=== PATIENT | female | born 1935 | race Caucasian/White ===

== ENCOUNTER 2020-03-26 10:51 | Outpatient (REF) | payer MEDICARE, SELFPAY ==
--- NOTE | 2020-03-26 | MM_ITS ---
EXAMINATION: MM SCREENING DIGITAL MAMMOGRAPHY, BILATERAL CLINICAL INFORMATION: Screening. Asymptomatic. Age 84. Family history breast cancer in sister. Due for yearly. The lifetime risk of breast cancer based on the Tyrer-Cuzick Model is under 1%. COMPARISON: Mammography: 03/21/2019, 03/19/2018, 03/16/2017, 03/13/2016 TECHNIQUE: Digital mammography is performed in craniocaudal and mediolateral oblique views along with computer-aided detection (CAD). FINDINGS: The breasts are heterogeneously dense, which may obscure small masses (ACR BI-RADS breast composition Category c). There is inhomogeneous parenchymal pattern similar to prior studies. There is no significant mass or architectural abnormality. Scattered bilateral round and vascular calcifications are again seen. There are no significant changes. IMPRESSION: No significant changes from prior studies. ASSESSMENT: BI-RADS 2: Benign RECOMMENDATION: Routine annual mammography screening. This patient's information was entered into a reminder system with a target due date for their next mammogram.
== END 2020-03-26 10:52 | disposition home or self-care (01) ==
LOC: HO.MAMMO 10:51
PROVIDERS: PCP Internal Medicine; Visit Provider Internal Medicine
DX: Z12.31 Encounter for screening mammogram for malignant neoplasm of breast (principal)
CPT/HCPCS: 77067

== ENCOUNTER 2021-04-09 09:38 | Outpatient (REF) | payer MEDICARE, SELFPAY ==
--- NOTE | ~2021-04-09 | MM_ITS ---
EXAMINATION: BONE DENSITOMETRY CLINICAL INDICATION: Postmenopausal. COMPARISON: Previous BD dated 03/13/2016 and baseline BD dated 07/07/2005. TECHNIQUE: Using a [employer] DXA System (software version: 13.1) manufactured by [employer], dual-energy x-ray absorptiometry was performed of the lumbar spine and left hip. The images are of good technical quality. Summary results are attached. FINDINGS: AP SPINE L1-L2 (excluding L3 and L4): The data of L1-L4 has been changed to exclude the L3 and L4 vertebral bodies, because generative changes at these levels may cause overestimation of lumbar spine density. Current: BMD 1.066 g/cm2, Z-score 1.3, T-score -0.8, normal, 4.0% increase from previous, 1.0% decrease from baseline (<5% change is not significant). Prior: BMD 1.025 g/cm2. Baseline: BMD 1.077 g/cm2. LEFT FEMUR, NECK: Current: BMD 0.693 g/cm2, Z-score 0.1, T-score -2.5, osteoporosis. Prior: BMD 0.737 g/cm2. Baseline: BMD 0.830 g/cm2. LEFT FEMUR, TOTAL: Current: BMD 0.803 g/cm2, Z-score 0.9, T-score -1.6, osteopenia, 2.3% decrease from previous, 13.5% decrease from baseline (<5% change is not significant). Prior: BMD 0.822 g/cm2. Baseline: BMD 0.928 g/cm2. IDENTIFIED RISK FACTORS: Height loss, menopause. HISTORY OF FRACTURE: None listed. MEDICATIONS: Vitamin D. MM/XR DEXA axial skeleton IMPRESSION: 1. DIAGNOSIS: Osteoporosis based on the lowest T-score value of -2.5 in the femoral neck applying World Health Organization criteria. 2. 10-YEAR FRACTURE RISK PREDICTION, FRAX: Major osteoporotic fracture (clinical spine, forearm, hip or shoulder) 16.8%. Hip fracture 6.3%. 3. Treatment Recommendations: NOF guidelines recommend consideration for treatment in postmenopausal women and men age 50 and older presenting with the following: -A hip or vertebral (clinical or morphometric) fracture. -T-score less than or equal to -2.5 at the femoral neck or spine after appropriate evaluation to exclude secondary causes. -Low bone mass at the hip or spine and a 10-year fracture probability by FRAX of greater than or equal to 3% for hip fracture or greater than or equal to 20% for major osteoporotic fracture based on the [place] adapted WHO algorithm. 4. Other Recommendations: All treatment decisions require clinical judgment and consideration of individual patient factors, including patient preferences, comorbidities, previous drug use, risk factors not captured in the FRAX model (e.g. frailty, falls, vitamin D deficiency, increased bone turnover, interval significant decline in bone density) and possible under or overestimation of fracture risk by FRAX. Additional medical evaluation for secondary cause of low bone mineral density may be appropriate. FUTURE SCAN RECOMMENDATION: People with diagnosed cases of osteoporosis or at high risk for fracture should have regular bone mineral density tests. For patients eligible for Medicare, routine testing is allowed once every 2 years. The testing frequency can be increased to one year for patients who have rapidly progressing disease, those who are receiving or discontinuing medical therapy to restore bone mass, or have additional risk factors.
--- NOTE | ~2021-04-09 | MM_ITS ---
EXAMINATION: MM SCREENING DIGITAL BREAST TOMOSYNTHESIS, BILATERAL CLINICAL INFORMATION: Screening. Asymptomatic. COMPARISON: Mammography: 03/26/2020, 03/21/2019, 03/19/2018 TECHNIQUE: Digital breast tomosynthesis is performed in both the craniocaudal and mediolateral oblique views along with computer-aided detection (CAD). Synthesized 2D images are generated from the tomosynthesis. FINDINGS: The breasts are heterogeneously dense, which may obscure small masses (ACR BI-RADS breast composition Category c). There are no significant masses, abnormal calcifications, or other abnormalities. Parenchymal pattern is similar to prior exams. There are scattered bilateral benign round and vascular calcifications. The axilla and skin contours are unremarkable. MM/MM tomosynthesis screening BI IMPRESSION: No mammographic evidence of malignancy. ASSESSMENT: BI-RADS 1: Negative RECOMMENDATION: Routine annual mammography screening. This patient's information was entered into a reminder system with a target due date for their next mammogram.
== END 2021-04-09 09:39 | disposition home or self-care (01) ==
LOC: HO.MAMMO 09:38
PROVIDERS: PCP Internal Medicine; Visit Provider Internal Medicine
DX: Z12.31 Encounter for screening mammogram for malignant neoplasm of breast (principal); Z13.820 Encounter for screening for osteoporosis; M81.0 Age-related osteoporosis without current pathological fracture; Z78.0 Asymptomatic menopausal state
CPT/HCPCS: 77063; 77067; 77080

== ENCOUNTER 2021-10-20 18:16 | Emergency (ER) | payer MEDICARE, SELFPAY ==
--- NOTE | ~2021-10-20 | CT_ITS ---
EXAMINATION: CT ABDOMEN AND PELVIS WITH CONTRAST CLINICAL INFORMATION: abd pain hyperactive bowel sounds eval partial SBO COMPARISON: 01/31/2020 TECHNIQUE: Multidetector volumetric imaging was performed from the superior aspect of the liver through the pubic symphysis following administration of 85 mL Omnipaque 300 intravenous contrast. Sagittal and coronal reformatted images were obtained on the technologist workstation.. This CT examination was performed using dose optimization techniques as appropriate, variously including the following: *Automated exposure control *Adjustment of mA and/or kV according to patient size (this includes techniques or standardized protocols for targeted exams where dose is matched to indication/reason for exam; i.e. extremities or head) *Use of iterative reconstruction technique DLP: 406 mGy-cm FINDINGS: LUNG BASES: Linear scarring or atelectasis. Small hiatal hernia. LIVER, GALLBLADDER, AND BILIARY TREE: The liver is normal in size, shape, and attenuation. No focal hepatic lesion or biliary ductal dilatation is present. The gallbladder is unremarkable with no evidence of radiopaque gallstones, gallbladder wall thickening, or obvious pericholecystic inflammatory changes. PANCREAS: Unremarkable. SPLEEN: Unremarkable. ADRENAL GLANDS: Unremarkable. KIDNEYS AND URETERS: The kidneys are normal in size, shape, and attenuation. No hydronephrosis, hydroureter, or calculi seen. No perinephric stranding. BLADDER: Unremarkable. GASTROINTESTINAL TRACT: Few scattered colonic diverticula are seen but no colonic wall thickening or pericolonic inflammatory change to suggest diverticulitis. Visualized small bowel unremarkable. Small hiatal hernia. ABDOMINAL WALL: No significant hernia is appreciated. LYMPHOVASCULAR STRUCTURES: Vascular calcification within the aorta iliac system PELVIC VISCERA: 3.1 cm right adnexal cyst again seen only a few millimeters more prominent compared to similar orientation to the 01/31/2020 study OSSEOUS STRUCTURES: Multilevel degenerative changes in the spine again seen similar to the prior exam CT/CT abdomen pelvis w con IMPRESSION: Chronic appearing intra-abdominal findings relatively similar to the 01/31/2020 study without acute process process
[2021-10-20 18:36] VITALS: BP 142/70; PULSE 86; RESP 18; TEMP 36.6; O2SAT 96; BMI 22.6
--- NOTE | 2021-10-20 20:16 | ED_ITS ---
HPI - General Adult General Chief complaint: General Medical Stated complaint: abdominal pain Time Seen by Provider: 10/20/21 19:57 Source: patient Limitations: no limitations History of Present Illness HPI narrative: This is an 86-year-old female who the night before last had eaten some cake and then developed diarrhea all night long. The patient notes that she does have a gluten intolerance. The next day she felt somewhat better but this morning she ate breakfast and then felt worse, with some nausea, 1 episode of diarrhea, and open abdomen with crampy pain, making a lot of noise. Patient denies any fever or chills. She denies any chest pain, cough, shortness of breath. She denies any urinary symptoms. She denies any prior abdominal surgery Related Data Previous Rx's Medication Instructions Recorded cefdinir 300 mg capsule 300 mg PO BID #12 cap 10/21/21 ondansetron 4 mg disintegrating 4 mg PO Q6H PRN #7 tab 10/21/21 tablet Allergies Allergy/AdvReac Type Severity Reaction Status Date / Time buspirone [BUSPIRONE] Allergy Intermediate STOMACH Unverified 03/08/20 15:36 UPSET citalopram [CITALOPRAM] Allergy Intermediate STOMACH Unverified 03/08/20 15:36 UPSET paroxetine [PAROXETINE] Allergy Intermediate STOMACH Unverified 03/08/20 15:36 UPSET trazodone [TRAZODONE] Allergy Intermediate STOMACH Unverified 03/08/20 15:36 UPSET levofloxacin [From [facility]EVAQU[facility]] Allergy Unknown DEPRESSION Unverified 03/08/20 15:36 Review of Systems Review of Systems: Yes all other systems are reviewed and are negative Constitutional: Constitutional: Reports as per HPI and Denies fever(s) Eyes: Eyes: Reports as per HPI and Reports no additional eye complaints ENT: Reports system reviewed and no additional complaints, except as documented, Reports as per HPI, Denies nasal congestion, Denies nasal discharge and Denies sore throat Cardiovascular: Cardiovascular: Reports as per HPI, Denies chest pain and Denies dyspnea Respiratory: Respiratory: Reports as per HPI, Denies cough and Denies dyspnea Gastrointestinal: Gastrointestinal: Reports as per HPI, Reports abdominal pain, Reports diarrhea, Reports nausea and Denies vomiting Genitourinary: Genitourinary: Reports as per HPI, Denies hematuria, Denies urinary frequency and Denies dysuria Musculoskeletal: Musculoskeletal: Reports no additional musculoskeletal complaints and Denies numbness Integumentary/Breasts: Skin/Breast: Reports as per HPI and Denies rash Neurologic: Reports as per HPI, Denies focal weakness and Denies numbness Psychiatric: Psychiatric: Reports no additional psychiatric complaints and Reports as per HPI Endocrine: Endocrine: Reports no additional endocrine complaints and Reports as per HPI Hematologic/Lymphatic: Hematologic/Lymphatic: Reports no additional hematologic/lymphatic complaints, Reports as per HPI and Reports other (No peripheral edema) [facility] Social History Social History Advance Directives: No Advance Directives Information Provided: No Advance Directives Date on File: 03/26/20 Physical Exam ED Vital Signs: Vital Signs - 24 hr 10/20/21 18:36 10/20/21 20:30 10/20/21 22:10 Temperature 97.8 F 98.8 F 98.3 F Pulse Rate 86 64 69 Respiratory Rate 18 17 17 Blood Pressure 142/70 H 150/82 H 140/66 H Pulse Oximetry 96 96 98 BMI result Body Mass Index 22.6 Const General: no acute distress Orientation/consciousness: patient oriented x3 HENMT Head: Yes normal to inspection General nose exam: Normal external nose present Mouth: moist mucous membranes Throat: Yes posterior oropharynx normal, Yes tonsils normal and Yes uvula midline Eyes Eyelids: Yes eyelids normal Conjunctivae: conjunctivae normal Pupils: Equal, round and reactive pupils present Neck Neck: Yes supple Resp Effort & Inspection: normal respiratory effort Auscultation: clear to auscultation bilaterally Cardio Rate: regular rate Rhythm: regular rhythm Heart sounds: S1 normal heart sound present, S2 normal heart sound present, no gallops, no murmurs and no rubs GI Inspection: No distended Palpation (GI): Soft to palpation and nontender Auscultation: bowels sounds not normal and abnormal bowel sounds (Very Hyperactive, not high-pitched or tinkling) Skin General skin exam: other (Warm and dry) Neuro General: patient oriented x3 and CN's II-XI intact bilaterally Cranial nerves: Yes Equal, round and reactive pupils present Extrem General: Yes no pedal edema Psych Affect: normal affect Attitude: cooperative Medical Decision Making MDM Narrative Medical decision making narrative: Patient with diarrhea the night before last, recurred this morning, with further symptoms today of abdominal cramping. No tenderness on exam the patient did have very hyperactive bowel sounds. CT scan of the abdomen did not show any concerning findings. Urinalysis did show numerous white blood cells per high- power field, the patient states that she has some condition such as lichen sclerosis which she states causes her to have abnormal urinalysis. Urine was also positive for nitrites. Patient denied dysuria but given her urinalysis, I believe it is prudent to treat with antibiotics for UTI. CBC and chemistry panel unremarkable. Patient was hydrated with normal saline, given Zofran 4 mg IV x2 doses, also Reglan 5 mg IV. Patient was also given Rocephin 1 g IV Lab Data Lab results reviewed: Yes I reviewed the patient's lab results. Result diagrams: 10/20/21 20:18 10/20/21 20:18 Labs: Lab Results 10/20/21 10/20/21 10/20/21 Range/Units 20:18 20:18 23:49 WBC 9.7 (4.8-10.8) X10*3/uL RBC 4.57 (4.20-5.50) X10*6/uL Hgb 13.9 (12.0-16.0) g/dl Hct 39.9 (37.0-47.0) % MCV 87.3 (80.0-98.0) fL MCH 30.4 (27.0-33.0) pg MCHC 34.8 (31.0-35.0) g/dl RDW 12.7 (11.0-16.0) % Plt Count 244 (160-400) X10*3/uL MPV 9.6 (9.4-12.3) fL Immature Gran % (Auto) 0.5 H (0.0-0.4) % Neut % (Auto) 82.4 H (45-73) % Lymph % (Auto) 10.7 L (20-40) % [place] % (Auto) 6.0 (2-11) % Eos % (Auto) 0.1 (0-4) % Baso % (Auto) 0.3 (0-2) % Lymph # (Auto) 1.0 L (1.2-4.9) X10*3/uL [place] # (Auto) 0.6 (0.1-1.2) X10*3/uL Eos # (Auto) 0.0 (0.0-0.4) X10*3/uL Baso # (Auto) 0.0 (0.0-0.2) X10*3/uL Abs Immat Gran (auto) 0.05 H (0.00-0.03) X10*3/uL Absolute Neuts (auto) 8.0 (2.0-8.3) x10*3/uL Absolute Nucleated RBC 0.000 (0.0-0.012) X10*3/uL Nucleated RBC % (auto) 0.0 (0.0-0.2) /100WBC Sodium 133 L (135-145) mmol/L Potassium 3.9 (3.3-5.1) mmol/L Chloride 105 (96-108) mmol/L Carbon Dioxide 17 L (22-29) mmol/L Anion Gap 15 (12-20) BUN 13 (9-16) mg/dL Creatinine 0.79 (0.5-1.4) mg/dL Estim Creat Clear Calc 46.0 Estimated GFR > 60 Random Glucose 129 H (60-115) mg/dL Calcium 9.3 (8.4-10.2) mg/dL Total Bilirubin 1.3 H (0.0-1.0) mg/dL AST 21 (5-31) U/L ALT 25 (0-31) U/L Alkaline Phosphatase 71 (39-117) U/L Total Protein 6.9 (6.5-8.0) g/dL Albumin 4.2 (3.5-5.0) g/dL Urine Color YELLOW Urine Appearance HAZY Urine pH 6.0 (5.0-8.0) Ur Specific [place] 1.015 (1.005-1.025) Urine Protein 2+ H (NEG-TRACE) MG/DL Urine Glucose (UA) >=1000 H (NEG) MG/DL Urine Ketones 40 (NEG) MG/DL Urine Blood TRACE (NEG) Urine Nitrite POS H (NEG) Ur Leukocyte Esterase NEG (NEG) Urine RBC 0 (0) /HPF Urine WBC 30-49 H (0-4) /HPF Urine WBC Clumps NOTED Ur Squamous Epith Cells 1+ /LPF Urine Bacteria 4+ /LPF Imaging Data CT abdomen and pelvis with IV contrast: Radiologist's impression: IMPRESSION: Chronic appearing intra-abdominal findings relatively similar to the 01/31/2020 study without acute process process Discharge Plan Discharge Clinical Impression: Vomiting, Diarrhea, Acute UTI Patient Disposition: Home, Self-Care Instructions: Urinary Tract Infection in Women (ED), Acute Diarrhea (ED) Additional Instructions: Use ondansetron as needed for nausea. Try to keep down clear fluids. Follow-up with primary care physician. Take the antibiotics as prescribed Prescriptions: New cefdinir 300 mg capsule 300 mg PO BID Qty: 12 0RF ondansetron 4 mg tablet,disintegrating 4 mg PO Q6H PRN (Reason: nausea and vomiting) Qty: 7 0RF
[2021-10-20] MEDS: 0.9 % Sodium Chloride 1,000 ML 999 ML IV (20:25)
[2021-10-20] MEDS: ondansetron HCL 4 MG/2 ML VIAL IVPUSH ×2 (20:28→23:09)
[2021-10-20 20:29] LABS: MANUAL DIFF FLAG NO
[2021-10-20 20:30] VITALS: BP 150/82; PULSE 64; RESP 17; TEMP 37.1; O2SAT 96
[2021-10-20 20:46] LABS: Alanine Aminotransferase 25 U/L (0-31); Albumin Level 4.2 g/dL (3.5-5.0); Alkaline Phosphatase 71 U/L (39-117); Anion Gap 15 (12-20); Aspartate Amino Transferase 21 U/L (5-31); Basophils Percent Auto 0.3 % (0-2); Bilirubin Total 1.3 mg/dL (0.0-1.0); Blood Urea Nitrogen 13 mg/dL (9-16); Calcium 9.3 mg/dL (8.4-10.2); Carbon Dioxide 17 mmol/L (22-29); Chloride 105 mmol/L (96-108); Eosinophils Percent Auto 0.1 % (0-4); Estimated Glomerular Filt Rate > 60; Glucose Random 129 mg/dL (60-115); Hematocrit 39.9 % (37.0-47.0); Hemoglobin 13.9 g/dl (12.0-16.0); Imm Gran Abs Auto 0.05 X10*3/uL (0.00-0.03); Imm Gran Pct Auto 0.5 % (0.0-0.4); Lymphocytes Percent Auto 10.7 % (20-40); Mean Corpuscular HGB Conc 34.8 g/dl (31.0-35.0); Mean Corpuscular Hemoglobin 30.4 pg (27.0-33.0); Mean Corpuscular Volume 87.3 fL (80.0-98.0); Mean Platelet Volume 9.6 fL (9.4-12.3); Monocytes Absolute Auto 0.6 X10*3/uL (0.1-1.2); Neutrophils Percent Auto 82.4 % (45-73); Platelet Count 244 X10*3/uL (160-400); Potassium 3.9 mmol/L (3.3-5.1); Red Blood Count 4.57 X10*6/uL (4.20-5.50); Red Cell Distribution Width 12.7 % (11.0-16.0); Sodium 133 mmol/L (135-145); Total Protein 6.9 g/dL (6.5-8.0); White Blood Count 9.7 X10*3/uL (4.8-10.8)
[2021-10-20 22:10] VITALS: BP 140/66; PULSE 69; RESP 17; TEMP 36.8; O2SAT 98
[2021-10-20] MEDS: iohexoL 350 MG/ML 100 ML INFUS..BTL IV (22:26)
[2021-10-20] MEDS: Metoclopramide HCl 10 MG/2 ML VIAL 5 MG IVPUSH (23:47)
[2021-10-20 23:54] LABS: Appearance Urine HAZY; Color Urine YELLOW; Glucose Urine UA >=1000 MG/DL (NEG); Leukocyte Esterase Urine NEG (NEG); Nitrite Urine POS (NEG); Specific Gravity - Urine 1.015 (1.005-1.025); UACC Culture Trigger YES; Urine Blood TRACE (NEG); Urine Ketones 40 MG/DL (NEG); Urine Protein 2+ MG/DL (NEG-TRACE)
[2021-10-21 00:01] LABS: Bacteria Urine 4+ /LPF; RBC Urine 0 /HPF (0); Squamous Epithelial Cell Urine 1+ /LPF; WBC Clumps Urine NOTED; WBC Urine 30-49 /HPF (0-4)
[2021-10-21] MEDS: cefTRIAXone sodium 1 GM in 0.9 % Sodium Chloride 50 ML IV (01:07)
== END 2021-10-21 07:49 | disposition home or self-care (01) ==
PROVIDERS: Emergency Provider Emergency Medicine; PCP Internal Medicine
DX: N39.0 Urinary tract infection, site not specified (principal); R19.7 Diarrhea, unspecified; R11.10 Vomiting, unspecified; K90.41 Non-celiac gluten sensitivity
CPT/HCPCS: 36415; 74177; 80053; 81001; 85025; 87086; 87088; 87147; 87186; 96361; 96365; 96375; 96376; 99283; 99284; J0696; J2405; J2765; Q9967

== ENCOUNTER 2022-04-15 09:19 | Outpatient (REF) | payer MEDICARE, SELFPAY ==
--- NOTE | ~2022-04-15 | MM_ITS ---
EXAMINATION: BONE DENSITOMETRY CLINICAL INDICATION: Osteoporosis. COMPARISON: Previous BD dated 04/09/2021 and baseline BD dated 07/07/2005. TECHNIQUE: Using a [employer] DXA System (software version: 13.1) manufactured by [employer], dual-energy x-ray absorptiometry was performed of the lumbar spine and left hip. The images are of good technical quality. Summary results are attached. FINDINGS: AP SPINE L1-L2 (excluding L3 and L4): The data of L1-L4 has been changed to exclude the L3 and L4 vertebral bodies, because degenerative sclerosis at these levels may cause overestimation of lumbar spine density. Current: BMD 1.036 g/cm2, Z-score 1.0, T-score -1.1, osteopenia, 2.8% decrease from previous, 3.8% decrease from baseline (<5% change is not significant). Prior: BMD 1.066 g/cm2. Baseline: BMD 1.077 g/cm2. LEFT FEMUR, NECK: Current: BMD 0.693 g/cm2, Z-score 0.1, T-score -2.5, osteoporosis. Prior: BMD 0.693 g/cm2. Baseline: BMD 0.830 g/cm2. LEFT FEMUR, TOTAL: Current: BMD 0.810 g/cm2, Z-score 0.9, T-score -1.6, osteopenia, 0.9% increase from previous, 12.7% decrease from baseline (<5% change is not significant). Prior: BMD 0.803 g/cm2. Baseline: BMD 0.928 g/cm2. IDENTIFIED RISK FACTORS: Menopause, height loss, osteoporosis. HISTORY OF FRACTURE: None listed. MEDICATIONS: Vitamin D. MM/XR DEXA axial skeleton IMPRESSION: 1. DIAGNOSIS: Osteoporosis based on the lowest T-score value of -2.5 in the femoral neck applying World Health Organization criteria. 2. 10-YEAR FRACTURE RISK PREDICTION, FRAX: According to the guidelines, FRAX calculation should only be performed on patients in the osteopenia bone density category. Therefore, FRAX was not performed on this patient. 3. Treatment Recommendations: NOF guidelines recommend consideration for treatment in postmenopausal women and men age 50 and older presenting with the following: -A hip or vertebral (clinical or morphometric) fracture. -T-score less than or equal to -2.5 at the femoral neck or spine after appropriate evaluation to exclude secondary causes. -Low bone mass at the hip or spine and a 10-year fracture probability by FRAX of greater than or equal to 3% for hip fracture or greater than or equal to 20% for major osteoporotic fracture based on the [place] adapted WHO algorithm. 4. Other Recommendations: All treatment decisions require clinical judgment and consideration of individual patient factors, including patient preferences, comorbidities, previous drug use, risk factors not captured in the FRAX model (e.g. frailty, falls, vitamin D deficiency, increased bone turnover, interval significant decline in bone density) and possible under or overestimation of fracture risk by FRAX. Additional medical evaluation for secondary cause of low bone mineral density may be appropriate. FUTURE SCAN RECOMMENDATION: People with diagnosed cases of osteoporosis or at high risk for fracture should have regular bone mineral density tests. For patients eligible for Medicare, routine testing is allowed once every 2 years. The testing frequency can be increased to one year for patients who have rapidly progressing disease, those who are receiving or discontinuing medical therapy to restore bone mass, or have additional risk factors.
--- NOTE | ~2022-04-15 | MM_ITS ---
EXAMINATION: MM SCREENING DIGITAL BREAST TOMOSYNTHESIS, BILATERAL CLINICAL INFORMATION: Screening. Asymptomatic. COMPARISON: Mammography: April 09, 2021 and studies dating back to February 13, 2014 TECHNIQUE: Digital breast tomosynthesis is performed in both the craniocaudal and mediolateral oblique views along with computer-aided detection (CAD). Synthesized 2D images are generated from the tomosynthesis. FINDINGS: The breasts are heterogeneously dense, which may obscure small masses (ACR BI-RADS breast composition Category c). There are no significant masses, abnormal calcifications, or other abnormalities. MM/MM tomosynthesis screening BI IMPRESSION: No significant changes ASSESSMENT: BI-RADS 1: Negative RECOMMENDATION: Routine annual mammography screening. This patient's information was entered into a reminder system with a target due date for their next mammogram.
== END 2022-04-15 09:20 | disposition home or self-care (01) ==
LOC: HO.MAMMO 09:19
PROVIDERS: PCP Internal Medicine; Visit Provider Internal Medicine
DX: Z12.31 Encounter for screening mammogram for malignant neoplasm of breast (principal); Z13.820 Encounter for screening for osteoporosis; Z78.0 Asymptomatic menopausal state; M81.0 Age-related osteoporosis without current pathological fracture
CPT/HCPCS: 77063; 77067; 77080

== ENCOUNTER 2022-10-16 05:14 | Emergency (ER) | payer MEDICARE, SELFPAY ==
[2022-10-16 05:20] VITALS: BP 136/82; BP 145/96; PULSE 124; PULSE 99; RESP 16; TEMP 36.8; O2SAT 95; O2SAT 97; BMI 19.9
--- NOTE | 2022-10-16 05:21 | ED.ABDPAIN ---
HPI - Abdominal Pain General Chief Complaint: Nausea/Vomiting/Diarrhea Stated Complaint: Nausea /vomitting Diarrhesa Time Seen by Provider: 10/16/22 05:21 Source: patient Mode of arrival: EMS Limitations: no limitations History of Present Illness HPI narrative: History of constipation took some stool softener last week had good bowel movements after that patient was having normal bowel movements yesterday patient had canned potato soup after having the soa\up patient started having watery diarrhea had about 10 since last night with nausea no abdominal pain had some cramps no fever no chills no history of antibiotic use lately no fever chills no significant abdominal pain Related Data Previous Rx's Medication Instructions Recorded cefdinir 300 mg capsule 300 mg PO BID #12 caps 10/21/21 ondansetron 4 mg disintegrating 4 mg PO Q6H PRN nausea and 10/21/21 tablet vomiting #7 tabs loperamide 2 mg tablet (Imodium 2 mg PO BID PRN loose stool #6 tabs 10/16/22 A-D) ondansetron 4 mg disintegrating 4 mg PO Q6-8H PRN nausea and 10/16/22 tablet vomiting #7 tabs Allergies Allergy/AdvReac Type Severity Reaction Status Date / Time buspirone [BUSPIRONE] Allergy Intermediate STOMACH Unverified 03/08/20 15:36 UPSET citalopram [CITALOPRAM] Allergy Intermediate STOMACH Unverified 03/08/20 15:36 UPSET paroxetine [PAROXETINE] Allergy Intermediate STOMACH Unverified 03/08/20 15:36 UPSET trazodone [TRAZODONE] Allergy Intermediate STOMACH Unverified 03/08/20 15:36 UPSET levofloxacin [From LEVAQUIN] Allergy Unknown DEPRESSION Unverified 03/08/20 15:36 Review of Systems Review of Systems Yes all other systems are reviewed and are negative PMFSH Social History Social History Alcohol intake: former Smoked in Last 30 Days: No Use of substances other than those prescribed or required for medical reasons: No Advance Directives: No Advance Directives Information Provided: Yes Advance Directives Date on File: 03/26/20 Physical Exam ED Vital Signs: Vital Signs - 24 hr 10/16/22 05:20 Temperature 98.3 F Pulse Rate 99 Respiratory Rate 16 Blood Pressure 145/96 H Pulse Oximetry 97 BMI result Body Mass Index 19.9 Appearance: Alert. Oriented X3. No acute distress. Eyes: PERRLA, No Nystagmus ENT: Pharynx normal. Oral Mucosa dry Neck: Normal inspection. Neck supple. CVS: Normal heart rate and rhythm. Pulses normal. Respiratory: No respiratory distress. Equal air entry bilateral, no wheezing/rales/rhonchi Abdomen: Soft, no focal tenderness no guarding Bowel sounds are present, no mass palpable, no CVA tenderness Skin: Skin warm and dry. Normal skin color. Normal skin turgor. Extremities: No lower extremity edema. No calf tenderness Neuro: Oriented X 3. Medical Decision Making Medical Decision Making [facility] Narrative: Patient with acute diarrhea with nausea with no significant abdominal pain. Feeling much better now after IV fluids no bowel movement in the ER abdomen soft no significant tenderness had slight leukocytosis secondary to dehydration no findings of acute abdomen Lab Data [facility] Lab Attestation statement: I reviewed the patient's lab results. 10/16/22 05:37 10/16/22 05:37 Labs: Lab Results 10/16/22 10/16/22 Range/Units 05:37 05:37 WBC 16.5 H (4.8-10.8) X10*3/uL RBC 4.73 (4.20-5.50) X10*6/uL Hgb 14.5 (12.0-16.0) g/dl Hct 40.7 (37.0-47.0) % MCV 86.0 (80.0-98.0) fL MCH 30.7 (27.0-33.0) pg MCHC 35.6 H (31.0-35.0) g/dl RDW 12.8 (11.0-16.0) % Plt Count 229 (160-400) X10*3/uL MPV 9.3 L (9.4-12.3) fL Immature Gran % (Auto) 0.7 H (0.0-0.4) % Neut % (Auto) 87.8 H (45-73) % Lymph % (Auto) 4.5 L (20-40) % Traverse % (Auto) 6.7 (2-11) % Eos % (Auto) 0.1 (0-4) % Baso % (Auto) 0.2 (0-2) % Lymph # (Auto) 0.7 L (1.2-4.9) X10*3/uL Traverse # (Auto) 1.1 (0.1-1.2) X10*3/uL Eos # (Auto) 0.0 (0.0-0.4) X10*3/uL Baso # (Auto) 0.0 (0.0-0.2) X10*3/uL Abs Immat Gran (auto) 0.11 H (0.00-0.03) X10*3/uL Absolute Neuts (auto) 14.5 H (2.0-8.3) x10*3/uL Absolute Nucleated RBC 0.000 (0.0-0.012) X10*3/uL Nucleated RBC % (auto) 0.0 (0.0-0.2) /100WBC Sodium 133 L (135-145) mmol/L Potassium 4.4 (3.3-5.1) mmol/L Chloride 102 (96-108) mmol/L Carbon Dioxide 20 L (22-29) mmol/L Anion Gap 15 (12-20) BUN 12 (9-16) mg/dL Creatinine 0.83 (0.5-1.4) mg/dL Estim Creat Clear Calc 41.0 Estimated GFR > 60 Random Glucose 146 H (60-115) mg/dL Calcium 9.4 (8.4-10.2) mg/dL Total Bilirubin 1.0 (0.0-1.0) mg/dL AST 18 (5-31) U/L ALT 24 (0-31) U/L Alkaline Phosphatase 82 (39-117) U/L Total Protein 6.5 (6.5-8.0) g/dL Albumin 4.2 (3.5-5.0) g/dL Medications Administered Discontinued Medications Generic Name Dose Route Start Last Admin Trade Name Freq PRN Reason Stop Dose Admin Sodium Chloride 1,000 mls @ 999 mls/hr 10/16/22 05:34 10/16/22 05:41 Ns IV 10/16/22 06:34 999 mls/hr .Q1H1M ONE Administration Loperamide HCl 2 mg 10/16/22 05:34 10/16/22 05:41 Loperamide Hcl 2 Mg Capsule PO 10/16/22 05:35 2 mg ONCE ONE Administration Ondansetron HCl 4 mg 10/16/22 05:34 10/16/22 05:42 Ondansetron Hcl 4 Mg/2 Ml Vial IVPUSH 10/16/22 05:35 4 mg ONCE ONE Administration Discharge Plan Discharge Clinical Impression: Gastroenteritis Patient Disposition: Home, Self-Care Instructions: Gastroenteritis (ED) Additional Instructions: Drink plenty of fluids Zofran for increased nausea/vomiting Imodium 1 or 2 tablets a day for severe diarrhea only Follow with PCP if not better Prescriptions: New ondansetron 4 mg tablet,disintegrating 4 mg PO Q6-8H PRN (Reason: nausea and vomiting) Qty: 7 0RF loperamide [Imodium A-D] 2 mg tablet 2 mg PO BID PRN (Reason: loose stool) Qty: 6 0RF No Action cefdinir 300 mg capsule 300 mg PO BID Qty: 12 0RF ondansetron 4 mg tablet,disintegrating 4 mg PO Q6H PRN (Reason: nausea and vomiting) Qty: 7 0RF
[2022-10-16 05:41] LABS: MANUAL DIFF FLAG NO
[2022-10-16] MEDS: Loperamide HCl 2 MG CAPSULE PO (05:41)
[2022-10-16] MEDS: 0.9 % Sodium Chloride 1,000 ML 999 ML IV (05:41)
[2022-10-16 05:42] LABS: Basophils Percent Auto 0.2 % (0-2); Eosinophils Percent Auto 0.1 % (0-4); Hematocrit 40.7 % (37.0-47.0); Hemoglobin 14.5 g/dl (12.0-16.0); Imm Gran Abs Auto 0.11 X10*3/uL (0.00-0.03); Imm Gran Pct Auto 0.7 % (0.0-0.4); Lymphocytes Absolute Auto 0.7 X10*3/uL (1.2-4.9); Lymphocytes Percent Auto 4.5 % (20-40); Mean Corpuscular HGB Conc 35.6 g/dl (31.0-35.0); Mean Corpuscular Hemoglobin 30.7 pg (27.0-33.0); Mean Platelet Volume 9.3 fL (9.4-12.3); Monocytes Absolute Auto 1.1 X10*3/uL (0.1-1.2); Monocytes Percent Auto 6.7 % (2-11); Neutrophils Absolute Auto 14.5 x10*3/uL (2.0-8.3); Neutrophils Percent Auto 87.8 % (45-73); Platelet Count 229 X10*3/uL (160-400); Red Blood Count 4.73 X10*6/uL (4.20-5.50); Red Cell Distribution Width 12.8 % (11.0-16.0); White Blood Count 16.5 X10*3/uL (4.8-10.8)
[2022-10-16] MEDS: ondansetron HCL 4 MG/2 ML VIAL IVPUSH (05:42)
[2022-10-16 06:04] LABS: Alanine Aminotransferase 24 U/L (0-31); Albumin Level 4.2 g/dL (3.5-5.0); Alkaline Phosphatase 82 U/L (39-117); Anion Gap 15 (12-20); Aspartate Amino Transferase 18 U/L (5-31); Blood Urea Nitrogen 12 mg/dL (9-16); Calcium 9.4 mg/dL (8.4-10.2); Carbon Dioxide 20 mmol/L (22-29); Chloride 102 mmol/L (96-108); Estimated Glomerular Filt Rate > 60; Glucose Random 146 mg/dL (60-115); Potassium 4.4 mmol/L (3.3-5.1); Sodium 133 mmol/L (135-145); Total Protein 6.5 g/dL (6.5-8.0)
[2022-10-16 08:27] VITALS: BP 144/78; PULSE 88; RESP 18; O2SAT 100
== END 2022-10-16 08:29 | disposition home or self-care (01) ==
PROVIDERS: Emergency Provider Internal Medicine
DX: K52.9 Noninfective gastroenteritis and colitis, unspecified (principal); R11.2 Nausea with vomiting, unspecified; Z79.899 Other long term (current) drug therapy
CPT/HCPCS: 36415; 80053; 85025; 96374; 99284; J2405

== ENCOUNTER 2022-10-31 15:01 | Inpatient (IN) | payer MEDICARE, SELFPAY ==
--- NOTE | 2022-10-31 | ECG_ITS ---
Test Reason : fall Blood Pressure : / mmHG Vent. Rate : 088 BPM Atrial Rate : 088 BPM P-R Int : 194 ms QRS Dur : 068 ms QT Int : 368 ms P-R-T Axes : 069 -18 059 degrees QTc Int : 445 ms Normal sinus rhythm Low voltage QRS cannot exclude old Inferior infarct (cited on or before 30-JAN-2018) Abnormal ECG When compared with ECG of 07-JUL-2019 10:02, Premature ventricular complexes are no longer Present Referred By: Nba Leno Electronically Signed By:MAGDA MARTINI
--- NOTE | ~2022-10-31 | XR_ITS ---
EXAMINATION: XR PELVIS CLINICAL INFORMATION: Post left hip hemiarthroplasty COMPARISON: None available. TECHNIQUE: AP view of the pelvis. FINDINGS: There is a new left hip hemiarthroplasty in satisfactory position. No fracture or dislocation. Arthritis of the right hip joint. Bones of the pelvis are normal. Postsurgical changes to the soft tissues. XR/XR pelvis 1-2V IMPRESSION: Satisfactory appearance of left hip hemiarthroplasty.
--- NOTE | ~2022-10-31 | XR_ITS ---
EXAMINATION: XR HIP, LEFT CLINICAL INFORMATION: Status post fall COMPARISON: None available. TECHNIQUE: Two views of the left hip. Pelvis one view. FINDINGS: Left femoral neck fracture. There is partial lateral and superior displacement of the distal bone. Mild medial angulation of the distal bone. Femoral head articulates with the acetabulum. Hip joint space is maintained. Mild right hip arthritis. Mild symphysis pubis degeneration. No diastases of the SI joints or symphysis pubis. No acute pelvic fractures are identified. Phleboliths in the pelvis. XR/XR hip LT w PEL1V IMPRESSION: Left femoral neck displaced fracture, detailed above.
--- NOTE | ~2022-10-31 | XR_ITS ---
EXAMINATION: XR CHEST CLINICAL INFORMATION: Preoperative COMPARISON: X-ray 07/07/2019 TECHNIQUE: Frontal view of the chest was obtained. FINDINGS: Stable cardiomediastinal silhouette. Stable Central pulmonary vascularity. No focal consolidation, effusion, edema or pneumothorax. Degenerative changes in the spine. XR/XR chest 1V IMPRESSION: No acute pulmonary process.
[2022-10-31 15:12] VITALS: BP 182/90; PULSE 80; RESP 16; TEMP 36.7; O2SAT 98
[2022-10-31 15:35] VITALS: BP 140/82; PULSE 101; O2SAT 99; BMI 22.9
--- NOTE | 2022-10-31 16:12 | ED_ITS ---
HPI - Fall General Chief Complaint: Fall Stated Complaint: L leg pain per EMS Time Seen by Provider: 10/31/22 16:12 Source: patient Mode of arrival: ambulatory Limitations: no limitations History of Present Illness HPI Narrative: Patient with mechanical fall tripped when turned fast and fell , at home landing on her left hip came with increased pain in left hip with obvious deformity no head injury no loss of conscious no other injuries patient not on any anticoagulants Related Data Home Medications Medication Instructions Recorded Confirmed betamethasone dipropionate 0.05 % 1 appl topical DAILY 10/31/22 10/31/22 topical ointment cholecalciferol (vitamin D3) 50 50 mcg PO DAILY 10/31/22 10/31/22 mcg (2,000 unit) capsule (Vitamin D3) lorazepam 1 mg tablet 1 mg PO TID 10/31/22 10/31/22 metoprolol succinate 50 mg 50 mg PO DAILY 10/31/22 10/31/22 tablet,extended release 24 hr simvastatin 10 mg tablet 10 mg PO BEDTIME 10/31/22 10/31/22 Allergies Allergy/AdvReac Type Severity Reaction Status Date / Time buspirone [BUSPIRONE] Allergy Intermediate STOMACH Unverified 03/08/20 15:36 UPSET citalopram [CITALOPRAM] Allergy Intermediate STOMACH Unverified 03/08/20 15:36 UPSET paroxetine [PAROXETINE] Allergy Intermediate STOMACH Unverified 03/08/20 15:36 UPSET trazodone [TRAZODONE] Allergy Intermediate STOMACH Unverified 03/08/20 15:36 UPSET levofloxacin [From LEVAQUIN] Allergy Unknown DEPRESSION Unverified 03/08/20 15:36 Review of Systems Review of Systems: Yes all other systems are reviewed and are negative [facility] Social History Social History Household Members: None Housing: House Do you presently have visiting nurse or other home services: Yes (PT twice a week) Alcohol intake: never Patient Tobacco Use Status: Former Tobacco user Tobacco use type: Cigarette Advance Directives Date on File: 03/26/20 Physical Exam Vital Signs: Vital Signs: Last Vital Signs Temp 98.0 F 10/31/22 21:34 Pulse 105 H 10/31/22 21:34 Resp 18 10/31/22 21:34 BP 176/97 H 10/31/22 21:34 Pulse Ox 94 10/31/22 21:34 O2 Del Method Room Air 10/31/22 21:34 O2 Flow Rate 2 10/31/22 19:17 BMI result Body Mass Index 22.9 Appearance: Alert. Oriented X3. No acute distress. Eyes: No pallor or icterus ENT: Pharynx normal. Oral Mucosa moist Neck: Normal inspection. Neck supple. CVS: Normal heart rate and rhythm. Pulses normal. Respiratory: No respiratory distress. Equal air entry bilateral, no wheezing/rales/rhonchi Abdomen: Soft and nontender. Bowel sounds are present, no mass palpable, no CVA tenderness Skin: Skin warm and dry. Normal skin color. Normal skin turgor. Extremities: No lower extremity edema. No calf tenderness tenderness left greater trochanteric area left lower extremity externally rotated and shortened neurovascularly intact Neuro: Oriented X 3. No motor deficit. No sensory deficit.No cerebellar signs , cranial nerves II-XII intact Medications Administered Generic Name Dose Route Start Last Admin Trade Name Freq PRN Reason Stop Dose Admin Atorvastatin Calcium 10 mg 10/31/22 21:00 10/31/22 20:49 Atorvastatin Calcium 10 Mg Tablet PO 10 mg BEDTIME BIRGIT Administration Lorazepam 1 mg 10/31/22 21:00 10/31/22 20:49 Lorazepam 1 Mg Tablet PO 1 mg TID BIRGIT Administration Morphine Sulfate 4 mg 10/31/22 19:25 10/31/22 21:50 Morphine Sulfate 4 Mg/Ml Cartridge IVPUSH 4 mg Q4H PRN Administration Pain, Severe (Pain Scale 7-10) Protocol Sodium Chloride 3 ml 11/01/22 00:00 10/31/22 21:25 0.9 % Sodium Chloride Flush 3 Ml Syringe IVFLUSH 3 ml QSHIFT BIRGIT Administration Discontinued Medications Generic Name Dose Route Start Last Admin Trade Name Freq PRN Reason Stop Dose Admin Hydromorphone HCl 1 mg 10/31/22 17:37 10/31/22 17:46 Hydromorphone Hcl 1 Mg/Ml Syringe IVPUSH 10/31/22 17:38 1 mg ONCE ONE Administration Protocol Morphine Sulfate 4 mg 10/31/22 16:12 10/31/22 16:23 Morphine Sulfate 4 Mg/Ml Cartridge IVPUSH 10/31/22 16:13 4 mg ONCE ONE Administration Protocol Ondansetron HCl 4 mg 10/31/22 16:12 10/31/22 16:23 Ondansetron Hcl 4 Mg/2 Ml Vial IVPUSH 10/31/22 16:13 4 mg ONCE ONE Administration Medical Decision Making Medical Decision Making [facility] Narrative: Patient left femoral neck fracture status post mechanical fall case discussed also admit patient to medical service NPO after midnight plan for surgery in a.m. patient had leukocytosis likely leukemoid reaction secondary to stress Consult Healthcare Provider Management of the patient was discussed with: Hospitalist Lab Data [facility] Lab Attestation statement: I reviewed the patient's lab results. 10/31/22 18:05 10/31/22 18:05 Labs: Lab Results 10/31/22 10/31/22 10/31/22 Range/Units 16:18 18:05 18:05 WBC 20.1 H (4.8-10.8) X10*3/uL RBC 4.60 (4.20-5.50) X10*6/uL Hgb 13.8 (12.0-16.0) g/dl Hct 39.5 (37.0-47.0) % MCV 85.9 (80.0-98.0) fL MCH 30.0 (27.0-33.0) pg MCHC 34.9 (31.0-35.0) g/dl RDW 12.7 (11.0-16.0) % Plt Count 279 (160-400) X10*3/uL MPV 9.1 L (9.4-12.3) fL Immature Gran % (Auto) 0.8 H (0.0-0.4) % Neut % (Auto) 89.9 H (45-73) % Lymph % (Auto) 3.8 L (20-40) % Merrick % (Auto) 5.2 (2-11) % Eos % (Auto) 0.0 (0-4) % Baso % (Auto) 0.3 (0-2) % Lymph # (Auto) 0.8 L (1.2-4.9) X10*3/uL Merrick # (Auto) 1.0 (0.1-1.2) X10*3/uL Eos # (Auto) 0.0 (0.0-0.4) X10*3/uL Baso # (Auto) 0.1 (0.0-0.2) X10*3/uL Abs Immat Gran (auto) 0.16 H (0.00-0.03) X10*3/uL Absolute Neuts (auto) 18.1 H (2.0-8.3) x10*3/uL Absolute Nucleated RBC 0.000 (0.0-0.012) X10*3/uL Nucleated RBC % (auto) 0.0 (0.0-0.2) /100WBC PT 10.2 (10.0-13.1) SEC INR 0.9 (0.9-1.1) Sodium 132 L (135-145) mmol/L Potassium 3.6 (3.3-5.1) mmol/L Chloride 102 (96-108) mmol/L Carbon Dioxide 21 L (22-29) mmol/L Anion Gap 13 (12-20) BUN 15 (9-16) mg/dL Creatinine 0.74 (0.5-1.4) mg/dL Estim Creat Clear Calc 48.2 Estimated GFR > 60 Random Glucose 143 H (60-115) mg/dL Calcium 9.0 (8.4-10.2) mg/dL Total Bilirubin 0.8 (0.0-1.0) mg/dL AST 19 (5-31) U/L ALT 19 (0-31) U/L Alkaline Phosphatase 88 (39-117) U/L Total Protein 6.1 L (6.5-8.0) g/dL Albumin 3.8 (3.5-5.0) g/dL Blood Type Antibody Screen 10/31/22 Range/Units 18:07 WBC (4.8-10.8) X10*3/uL RBC (4.20-5.50) X10*6/uL Hgb (12.0-16.0) g/dl Hct (37.0-47.0) % MCV (80.0-98.0) fL MCH (27.0-33.0) pg MCHC (31.0-35.0) g/dl RDW (11.0-16.0) % Plt Count (160-400) X10*3/uL MPV (9.4-12.3) fL Immature Gran % (Auto) (0.0-0.4) % Neut % (Auto) (45-73) % Lymph % (Auto) (20-40) % Merrick % (Auto) (2-11) % Eos % (Auto) (0-4) % Baso % (Auto) (0-2) % Lymph # (Auto) (1.2-4.9) X10*3/uL Merrick # (Auto) (0.1-1.2) X10*3/uL Eos # (Auto) (0.0-0.4) X10*3/uL Baso # (Auto) (0.0-0.2) X10*3/uL Abs Immat Gran (auto) (0.00-0.03) X10*3/uL Absolute Neuts (auto) (2.0-8.3) x10*3/uL Absolute Nucleated RBC (0.0-0.012) X10*3/uL Nucleated RBC % (auto) (0.0-0.2) /100WBC PT (10.0-13.1) SEC INR (0.9-1.1) Sodium (135-145) mmol/L Potassium (3.3-5.1) mmol/L Chloride (96-108) mmol/L Carbon Dioxide (22-29) mmol/L Anion Gap (12-20) BUN (9-16) mg/dL Creatinine (0.5-1.4) mg/dL Estim Creat Clear Calc Estimated GFR Random Glucose (60-115) mg/dL Calcium (8.4-10.2) mg/dL Total Bilirubin (0.0-1.0) mg/dL AST (5-31) U/L ALT (0-31) U/L Alkaline Phosphatase (39-117) U/L Total Protein (6.5-8.0) g/dL Albumin (3.5-5.0) g/dL Blood Type O Positive Antibody Screen NEGATIVE Independent Interpretation I performed an independent interpretation of an: EKG Interpretation: Normal sinus rhythm heart rate 88 beats per minute normal interval normal axis no acute ST T wave changes no acute ischemia Radiology Impression Discussion of test interpretation with radiology: I have reviewed the radiologist's reading. Radiologist Impression: [address] [address] XRay Report Signed Patient: Agatha Garza MR#: [id number] : 1935 Acct:[id number] Age/Sex: 87 / F ADM Date: 10/31/22 Loc: HO.ED Attending Dr: Ordering Physician: Nba Leon MD Date of Service: 10/31/22 Procedure(s): XR hip LT w PEL1V Accession Number(s): [id number] cc: Nba Leon MD~ EXAMINATION: XR HIP, LEFT CLINICAL INFORMATION: Status post fall COMPARISON: None available. TECHNIQUE: Two views of the left hip. Pelvis one view. FINDINGS: Left femoral neck fracture. There is partial lateral and superior displacement of the distal bone. Mild medial angulation of the distal bone. Femoral head articulates with the acetabulum. Hip joint space is maintained. Mild right hip arthritis. Mild symphysis pubis degeneration. No diastases of the SI joints or symphysis pubis. No acute pelvic fractures are identified. Phleboliths in the pelvis. XR/XR hip LT w PEL1V IMPRESSION: Left femoral neck displaced fracture, detailed above. Discharge Plan Discharge Clinical Impression: Fracture of neck of femur Patient Disposition: Admitted As Inpatient Interventions: Admission Worksheet (ED) Last Done: 10/31/22 20:29 Discharge Date/Time: 10/31/22 21:18
[2022-10-31] MEDS: Morphine Sulfate 4 MG/ML CARTRIDGE IVPUSH ×2 (16:23→21:50)
[2022-10-31] MEDS: ondansetron HCL 4 MG/2 ML VIAL IVPUSH (16:23)
[2022-10-31 16:32] LABS: INTERNATIONAL NORM RATIO 0.9 (0.9-1.1); Prothrombin Time 10.2 SEC (10.0-13.1)
[2022-10-31 17:00] VITALS: BP 184/97; PULSE 84; RESP 14; TEMP 37; O2SAT 97
[2022-10-31] MEDS: HYDROmorphone HCl 1 MG/ML SYRINGE IVPUSH (17:46)
[2022-10-31 18:12] LABS: MANUAL DIFF FLAG NO
[2022-10-31 18:14] LABS: Basophils Absolute Auto 0.1 X10*3/uL (0.0-0.2); Basophils Percent Auto 0.3 % (0-2); Hematocrit 39.5 % (37.0-47.0); Hemoglobin 13.8 g/dl (12.0-16.0); Imm Gran Abs Auto 0.16 X10*3/uL (0.00-0.03); Imm Gran Pct Auto 0.8 % (0.0-0.4); Lymphocytes Absolute Auto 0.8 X10*3/uL (1.2-4.9); Lymphocytes Percent Auto 3.8 % (20-40); Mean Corpuscular HGB Conc 34.9 g/dl (31.0-35.0); Mean Corpuscular Volume 85.9 fL (80.0-98.0); Mean Platelet Volume 9.1 fL (9.4-12.3); Monocytes Percent Auto 5.2 % (2-11); Neutrophils Absolute Auto 18.1 x10*3/uL (2.0-8.3); Neutrophils Percent Auto 89.9 % (45-73); Platelet Count 279 X10*3/uL (160-400); Red Cell Distribution Width 12.7 % (11.0-16.0); White Blood Count 20.1 X10*3/uL (4.8-10.8)
[2022-10-31 18:32] LABS: Alanine Aminotransferase 19 U/L (0-31); Albumin Level 3.8 g/dL (3.5-5.0); Alkaline Phosphatase 88 U/L (39-117); Anion Gap 13 (12-20); Aspartate Amino Transferase 19 U/L (5-31); Bilirubin Total 0.8 mg/dL (0.0-1.0); Blood Urea Nitrogen 15 mg/dL (9-16); Carbon Dioxide 21 mmol/L (22-29); Chloride 102 mmol/L (96-108); Creatinine Clr Calc Pharmacy 48.2; Estimated Glomerular Filt Rate > 60; Glucose Random 143 mg/dL (60-115); Potassium 3.6 mmol/L (3.3-5.1); Sodium 132 mmol/L (135-145); Total Protein 6.1 g/dL (6.5-8.0)
--- NOTE | 2022-10-31 18:39 | PHA.MEDREC ---
Pharmacy Consult ? Medication Reconciliation Patient provided medication list. Pharmacy has completed the medication reconciliation.
[2022-10-31 19:17] VITALS: BP 154/97; PULSE 96; RESP 18; TEMP 36.9; O2SAT 97
--- NOTE | 2022-10-31 19:21 | PC.NURSE ---
I resumed care of the pt at 1900. Pt is resting quietly in bed with her daughter at the bedside. Pt is on 2 LPM O2 via NC and has a purewick in place. Pt is A&Ox4, GCS 15. Pt reports no pain at this time. Pt is being changed over into a linden at this time, was given a cup of ice and a cool wash cloth as she reports being warm. Pt waiting admission orders and room assignment.
--- NOTE | 2022-10-31 19:27 | PM.IMHP ---
History of Present Illness Date of Service: 10/31/22 Chief Complaint: Left leg pain This is a 87-year-old female with pertinent history of essential hypertension, mixed hyperlipidemia, mood disorder who presents to the emergency department for evaluation of left lower extremity discomfort after mechanical fall. Patient states she tried to switch off her fan and turn around when she slipped on the carpet and fell. Patient fell on her left side and has been having left lower extremity discomfort since. Difficulty with ambulation due to the pain. Denies loss of consciousness, jerking movement of extremities, tongue bite, urinary or bowel incontinence. No dizziness or lightheadedness prior to the fall. Patient denies chest discomfort, fevers, chills, palpitation, shortness of breath, abdominal pain, changes in urinary or bowel habits. Does have vitamin-D deficiency and is on supplementation The emergency department imaging with left femoral neck displaced fracture PMFSH Social History Alcohol intake: never Smoked in Last 30 Days: No Use of substances other than those prescribed or required for medical reasons: No Advance Directives: No Advance Directives Information Provided: Yes Advance Directives Date on File: 03/26/20 Meds Allergies Allergy/AdvReac Type Severity Reaction Status Date / Time buspirone [BUSPIRONE] Allergy Intermediate STOMACH Unverified 03/08/20 15:36 UPSET citalopram [CITALOPRAM] Allergy Intermediate STOMACH Unverified 03/08/20 15:36 UPSET paroxetine [PAROXETINE] Allergy Intermediate STOMACH Unverified 03/08/20 15:36 UPSET trazodone [TRAZODONE] Allergy Intermediate STOMACH Unverified 03/08/20 15:36 UPSET levofloxacin [From LEVAQUIN] Allergy Unknown DEPRESSION Unverified 03/08/20 15:36 Home Medications Medication Instructions Recorded Confirmed Last Taken Type betamethasone dipropionate 0.05 % 1 appl topical DAILY 10/31/22 10/31/22 Unknown History topical ointment cholecalciferol (vitamin D3) 50 50 mcg PO DAILY 10/31/22 10/31/22 Unknown History mcg (2,000 unit) capsule (Vitamin D3) lorazepam 1 mg tablet 1 mg PO TID 10/31/22 10/31/22 Unknown History metoprolol succinate 50 mg 50 mg PO DAILY 10/31/22 10/31/22 Unknown History tablet,extended release 24 hr simvastatin 10 mg tablet 10 mg PO BEDTIME 10/31/22 10/31/22 Unknown History Physical Exam Vital Signs and Narrative: Vital Signs: Last Vital Signs Temp 98.5 F 10/31/22 19:17 Pulse 96 10/31/22 19:17 Resp 18 10/31/22 19:17 BP 154/97 H 10/31/22 19:17 Pulse Ox 97 10/31/22 19:17 O2 Del Method Nasal Cannula 10/31/22 19:17 O2 Flow Rate 2 10/31/22 19:17 BMI result Body Mass Index 22.9 Results Labs 10/31/22 18:05 10/31/22 18:05 Labs: Laboratory Results - last 24 hr 10/31/22 10/31/22 10/31/22 16:18 18:05 18:05 MCV 85.9 MCH 30.0 MCHC 34.9 RDW 12.7 Plt Count 279 MPV 9.1 L Immature Gran % (Auto) 0.8 H Neut % (Auto) 89.9 H Lymph % (Auto) 3.8 L Leslie % (Auto) 5.2 Eos % (Auto) 0.0 Baso % (Auto) 0.3 Lymph # (Auto) 0.8 L Leslie # (Auto) 1.0 Eos # (Auto) 0.0 Baso # (Auto) 0.1 Abs Immat Gran (auto) 0.16 H Absolute Neuts (auto) 18.1 H Absolute Nucleated RBC 0.000 Nucleated RBC % (auto) 0.0 PT 10.2 INR 0.9 Anion Gap 13 Estim Creat Clear Calc 48.2 Estimated GFR > 60 Random Glucose 143 H Calcium 9.0 Total Bilirubin 0.8 AST 19 ALT 19 Alkaline Phosphatase 88 Total Protein 6.1 L Albumin 3.8 Blood Type Antibody Screen 10/31/22 18:07 MCV MCH MCHC RDW Plt Count MPV Immature Gran % (Auto) Neut % (Auto) Lymph % (Auto) Leslie % (Auto) Eos % (Auto) Baso % (Auto) Lymph # (Auto) Leslie # (Auto) Eos # (Auto) Baso # (Auto) Abs Immat Gran (auto) Absolute Neuts (auto) Absolute Nucleated RBC Nucleated RBC % (auto) PT INR Anion Gap Estim Creat Clear Calc Estimated GFR Random Glucose Calcium Total Bilirubin AST ALT Alkaline Phosphatase Total Protein Albumin Blood Type O Positive Antibody Screen NEGATIVE Imaging Radiologist's Impressions: Impressions Chest X-Ray 10/31/22 16:50 IMPRESSION: No acute pulmonary process. Hip/Pelvis X-Ray 10/31/22 16:50 IMPRESSION: Left femoral neck displaced fracture, detailed above. Assessment and Plan (1) Femoral neck fracture: Status: Acute Plan This is a 87-year-old female with pertinent history of essential hypertension, mixed hyperlipidemia, mood disorder who presents to the emergency department for evaluation of left lower extremity discomfort after mechanical fall. #. Acute left femoral neck displaced fracture due to mechanical fall: Will admit patient and initiate IV opioids p.r.n. Orthopedic surgery was consulted from the ER, appreciate assistance. Will keep patient NPO after midnight. #. Preoperative risk: RCRI score 0 #. Essential hypertension: On metoprolol #. Mixed hyperlipidemia: On simvastatin #. Mood disorder: On lorazepam #. Reactive leukocytosis: Defer antibiotics DVT prophylaxis: Defer Lovenox until surgical evaluation DNR/DNI. Discussed with patient and daughter at bedside Cardiac diet. NPO after midnight Admit as inpatient and will require two night minimum hospital stay for management of left femoral neck fracture with possible surgical intervention. Specialist consult pending Time Spent With Patient Time: Total time managing care of this patient today ____ minutes. Quality Stroke Does the patient have a stroke diagnosis?: No VTE Prior VTE?: No VTE Risk Level:: Medical - moderate - high VTE Device Contraindication: Treatment Not Indicated VTE Drug Contraindication: Treatment Not Indicated
--- NOTE | 2022-10-31 20:12 | PC.NURSE ---
Attempted to call report at 20:09, no answer. Will attempt to call again
[2022-10-31] MEDS: LORazepam 1 MG TABLET PO (20:49)
[2022-10-31] MEDS: Atorvastatin Calcium 10 MG TABLET PO (20:49)
[2022-10-31 21:01] LABS: Appearance Urine Cloudy; Color Urine Yellow; Glucose Urine UA Negative (Negative); Leukocyte Esterase Urine Trace (Negative); Nitrite Urine Negative (Negative); PH 7.5 (5.0-9.0); UMIC TRIGGER UACC YES; Urine Blood Negative (Negative); Urine Ketones Negative (Negative); Urine Protein Negative (Neg-Trace)
[2022-10-31 21:06] LABS: Bacteria Urine None Seen (None Seen); Hyaline Casts Urine 0-2 /LPF (0-2); RBC Urine 0-2 /HPF (0-2); Squamous Epithelial Cell Urine 0-2 /HPF (0-2); WBC Urine 0-5 /HPF (0-5)
[2022-10-31] MEDS: 0.9 % Sodium Chloride Flush 3 ML SYRINGE IVFLUSH (21:25)
[2022-10-31 21:33] VITALS: BMI 21.5
[2022-10-31 21:34] VITALS: BP 176/97; PULSE 105; RESP 18; TEMP 36.7; O2SAT 94
--- NOTE | 2022-10-31 23:44 | PM.HPOR ---
History of Present Illness History of Present Illness Date of Service: 11/01/22 Chief complaint: Left leg pain Narrative: Agatha Garza is a 87 year old female with a past medical history of hypertension, hyperlipidemia and mood disorder who presents to the emergency department for evaluation of left hip pain after sustaining a mechanical fall.? Patient states she tried to switch off her fan and turn around when she slipped on the carpet and fell.?She had immediate left hip pain and was unable to ambulate. She presented to the ED where x-rays of the left hip were obtained and revealed a left femoral neck fracture. The patient was admitted to the medicine service with orthopedic consult for further evaluation and treatment. Review of Systems Review of Systems: Yes all other systems are reviewed and are negative PMFSH Social History Social History Household Members: None Housing: House Do you presently have visiting nurse or other home services: Yes (PT twice a week) Alcohol intake: never Patient Tobacco Use Status: Former Tobacco user Tobacco use type: Cigarette Advance Directives Date on File: 03/26/20 Meds Allergies Allergy/AdvReac Type Severity Reaction Status Date / Time buspirone [BUSPIRONE] Allergy Intermediate STOMACH Unverified 03/08/20 15:36 UPSET citalopram [CITALOPRAM] Allergy Intermediate STOMACH Unverified 03/08/20 15:36 UPSET paroxetine [PAROXETINE] Allergy Intermediate STOMACH Unverified 03/08/20 15:36 UPSET trazodone [TRAZODONE] Allergy Intermediate STOMACH Unverified 03/08/20 15:36 UPSET levofloxacin [From LEVAQUIN] Allergy Unknown DEPRESSION Unverified 03/08/20 15:36 Active Medications: Current Medications Acetaminophen (Acetaminophen 325 Mg Tablet) 650 mg PO Q6H PRN PRN Reason: Pain, Mild (Pain Scale 1-3) Atorvastatin Calcium (Atorvastatin Calcium 10 Mg Tablet) 10 mg PO BEDTIME [facility] Last Admin: 10/31/22 20:49 Dose: 10 mg Cefazolin Sodium/Dextrose (Ancef) 2 gm in 50 mls @ 100 mls/hr IV PREOP ONE Stop: 11/01/22 12:02 Lorazepam (Lorazepam 1 Mg Tablet) 1 mg PO TID [facility] Last Admin: 10/31/22 20:49 Dose: 1 mg Melatonin (Melatonin 3 Mg Tablet) 6 mg PO BEDTIME PRN PRN Reason: Insomnia Metoprolol Succinate (Metoprolol Succinate Er 50 Mg Tab.Er.24h) 50 mg PO DAILY [facility]; Protocol Morphine Sulfate (Morphine Sulfate 4 Mg/Ml Cartridge) 4 mg IVPUSH Q4H PRN; Protocol PRN Reason: Pain, Severe (Pain Scale 7-10) Last Admin: 10/31/22 21:50 Dose: 4 mg Ondansetron HCl (Ondansetron Hcl 4 Mg/2 Ml Vial) 4 mg IVPUSH Q8H PRN PRN Reason: Nausea and Vomiting Sodium Chloride (0.9 % Sodium Chloride Flush 3 Ml Syringe) 3 ml IVFLUSH QSHIFT [facility] Last Admin: 10/31/22 21:25 Dose: 3 ml Triamcinolone Acetonide (Triamcinolone Acet 0.5 % Oint 15 Gm Tube) 1 appl TOPICAL DAILY [facility] Vitamin D (Cholecalciferol (Vitamin D3) 25 Mcg Tablet) 50 mcg PO DAILY [facility] Home Medications Medication Instructions Recorded Confirmed Last Taken Type betamethasone dipropionate 0.05 % 1 appl topical DAILY 10/31/22 10/31/22 Unknown History topical ointment cholecalciferol (vitamin D3) 50 50 mcg PO DAILY 10/31/22 10/31/22 Unknown History mcg (2,000 unit) capsule (Vitamin D3) lorazepam 1 mg tablet 1 mg PO TID 10/31/22 10/31/22 Unknown History metoprolol succinate 50 mg 50 mg PO DAILY 10/31/22 10/31/22 Unknown History tablet,extended release 24 hr simvastatin 10 mg tablet 10 mg PO BEDTIME 10/31/22 10/31/22 Unknown History Physical Exam Vital Signs: Vital Signs: Last Vital Signs Temp 98.0 F 10/31/22 21:34 Pulse 105 H 10/31/22 21:34 Resp 18 10/31/22 21:34 BP 176/97 H 10/31/22 21:34 Pulse Ox 94 10/31/22 21:34 O2 Del Method Room Air 10/31/22 21:34 O2 Flow Rate 2 10/31/22 19:17 BMI result Body Mass Index 21.5 Const: General: cooperative, healthy appearing and no acute distress Resp: Effort & Inspection: normal respiratory effort and able to speak in complete sentences Cardio: Rate: regular rate Peripheral pulses: Peripheral pulses 2+ throughout GI: Palpation (GI): Soft to palpation Skin: Lesions: no lesions Rashes: no rashes Extrem: Other: Left lower extremity is shortened and externally rotated. Able to dorsi/plantar flex. NVI. Results Labs 10/31/22 18:05 10/31/22 18:05 Labs: Abnormal lab results 10/31/22 10/31/22 10/31/22 Range/Units 18:05 18:05 20:50 WBC 20.1 H (4.8-10.8) X10*3/uL MPV 9.1 L (9.4-12.3) fL Immature Gran % (Auto) 0.8 H (0.0-0.4) % Neut % (Auto) 89.9 H (45-73) % Lymph % (Auto) 3.8 L (20-40) % Lymph # (Auto) 0.8 L (1.2-4.9) X10*3/uL Abs Immat Gran (auto) 0.16 H (0.00-0.03) X10*3/uL Absolute Neuts (auto) 18.1 H (2.0-8.3) x10*3/uL Sodium 132 L (135-145) mmol/L Carbon Dioxide 21 L (22-29) mmol/L Random Glucose 143 H (60-115) mg/dL Total Protein 6.1 L (6.5-8.0) g/dL Ur Leukocyte Esterase Trace H (Negative) H & H 10/31/22 Range/Units 18:05 Hgb 13.8 (12.0-16.0) g/dl Hct 39.5 (37.0-47.0) % Coagulation 10/31/22 Range/Units 16:18 INR 0.9 (0.9-1.1) All other labs normal. Assessment and Plan (1) Femoral neck fracture: Status: Acute I discussed the case with Dr. Ruiz and explained the extent of the injury to the patient and her daughter Amarilys about the options available which include surgical intervention. I explained the procedure in detail along with the length of recovery and rehab course. I explained the risk, benefits and alternatives. Risk including, but not limited to infection, blood clots, bleeding, non union or malunion and nerve/tissue damage to surrounding areas. I answered all their questions and with their understanding they have consented to move forward with Operative Fixation of the left hip. The patient will be T&S, med clearance obtained and remain NPO. Time Spent With Patient Time: Total time managing care of this patient today ____ minutes. Quality Stroke Does the patient have a stroke diagnosis?: No VTE Prior VTE?: No VTE Risk Level:: Medical - moderate - high VTE Device Contraindication: Treatment Not Indicated VTE Drug Contraindication: Treatment Not Indicated Procedures Date of Service Date of Service: 11/01/22
[2022-11-01] VITALS (13 sets, daily range): BP systolic 117–157; BP diastolic 59–90; PULSE 70–119; RESP 15–20; TEMP 36.2–36.6; O2SAT 91–99
[2022-11-01] MEDS: Morphine Sulfate 4 MG/ML CARTRIDGE IVPUSH ×2 (03:04→06:58)
[2022-11-01 06:28] LABS: Basophils Percent Auto 0.2 % (0-2); Eosinophils Percent Auto 0.1 % (0-4); Hematocrit 41.9 % (37.0-47.0); Hemoglobin 14.3 g/dl (12.0-16.0); Imm Gran Pct Auto 0.6 % (0.0-0.4); Lymphocytes Absolute Auto 1.6 X10*3/uL (1.2-4.9); Lymphocytes Percent Auto 9.8 % (20-40); MANUAL DIFF FLAG SCAN; Mean Corpuscular HGB Conc 34.1 g/dl (31.0-35.0); Mean Corpuscular Hemoglobin 29.8 pg (27.0-33.0); Mean Corpuscular Volume 87.3 fL (80.0-98.0); Mean Platelet Volume 9.7 fL (9.4-12.3); Monocytes Absolute Auto 1.5 X10*3/uL (0.1-1.2); Monocytes Percent Auto 9.5 % (2-11); Neutrophils Absolute Auto 12.9 x10*3/uL (2.0-8.3); Neutrophils Percent Auto 79.8 % (45-73); Platelet Count 245 X10*3/uL (160-400); Red Cell Distribution Width 12.8 % (11.0-16.0); SCAN SMEAR FLAG 1; White Blood Count 16.2 X10*3/uL (4.8-10.8)
[2022-11-01 06:37] LABS: Anion Gap 13 (12-20); Blood Urea Nitrogen 15 mg/dL (9-16); Calcium 9.3 mg/dL (8.4-10.2); Carbon Dioxide 22 mmol/L (22-29); Chloride 102 mmol/L (96-108); Estimated Glomerular Filt Rate > 60; Glucose Random 116 mg/dL (60-115); Potassium 4.3 mmol/L (3.3-5.1); Sodium 133 mmol/L (135-145)
[2022-11-01 07:13] LABS: SLIDE REVIEW VERIFIED
--- NOTE | 2022-11-01 08:29 | P.PNIM_ITS ---
Subjective Subjective Date of Service: 11/01/22 Review of Systems Follow up hip fracture s/p fall pain with movement nervous about having surgery Physical Exam Vital Signs: Vital Signs: Last Vital Signs Temp 97.4 F 11/01/22 07:22 Pulse 90 11/01/22 07:22 Resp 20 11/01/22 07:22 BP 157/81 H 11/01/22 07:22 Pulse Ox 98 11/01/22 07:22 O2 Del Method Room Air 11/01/22 07:22 O2 Flow Rate 2 10/31/22 19:17 BMI result Body Mass Index 21.5 Appearing in no acute distress lung sounds are clear to auscultation heart regular rate rhythm, clear S1, S2 positive bowel sounds, abdomen is soft, nontender neuro patient is alert x3, no focal deficits Objective Data Active Medications Acetaminophen (Acetaminophen 325 Mg Tablet) 650 mg PO Q6H PRN PRN Reason: Pain, Mild (Pain Scale 1-3) Atorvastatin Calcium (Atorvastatin Calcium 10 Mg Tablet) 10 mg PO BEDTIME [facility] Last Admin: 10/31/22 20:49 Dose: 10 mg Documented By: YAKOV Cefazolin Sodium/Dextrose (Ancef) 2 gm in 50 mls @ 100 mls/hr IV PREOP ONE Stop: 11/01/22 12:02 Lorazepam (Lorazepam 1 Mg Tablet) 1 mg PO TID [facility] Last Admin: 10/31/22 20:49 Dose: 1 mg Documented By: YAKOV Melatonin (Melatonin 3 Mg Tablet) 6 mg PO BEDTIME PRN PRN Reason: Insomnia Metoprolol Succinate (Metoprolol Succinate Er 50 Mg Tab.Er.24h) 50 mg PO DAILY [facility]; Protocol Morphine Sulfate (Morphine Sulfate 4 Mg/Ml Cartridge) 4 mg IVPUSH Q4H PRN; Protocol PRN Reason: Pain, Severe (Pain Scale 7-10) Last Admin: 11/01/22 06:58 Dose: 4 mg Documented By: KASEY Ondansetron HCl (Ondansetron Hcl 4 Mg/2 Ml Vial) 4 mg IVPUSH Q8H PRN PRN Reason: Nausea and Vomiting Sodium Chloride (0.9 % Sodium Chloride Flush 3 Ml Syringe) 3 ml IVFLUSH QSHIFT [facility] Last Admin: 10/31/22 21:25 Dose: 3 ml Documented By: HO.ODRISM Triamcinolone Acetonide (Triamcinolone Acet 0.5 % Oint 15 Gm Tube) 1 appl TOPICAL DAILY [facility] Vitamin D (Cholecalciferol (Vitamin D3) 25 Mcg Tablet) 50 mcg PO DAILY [facility] Labs 11/01/22 05:49 11/01/22 05:49 Labs: Laboratory Results - last 24 hr 10/31/22 10/31/22 10/31/22 16:18 18:05 18:05 MCV 85.9 MCH 30.0 MCHC 34.9 RDW 12.7 Plt Count 279 MPV 9.1 L Immature Gran % (Auto) 0.8 H Neut % (Auto) 89.9 H Lymph % (Auto) 3.8 L [place] % (Auto) 5.2 Eos % (Auto) 0.0 Baso % (Auto) 0.3 Lymph # (Auto) 0.8 L [place] # (Auto) 1.0 Eos # (Auto) 0.0 Baso # (Auto) 0.1 Abs Immat Gran (auto) 0.16 H Absolute Neuts (auto) 18.1 H Absolute Nucleated RBC 0.000 Nucleated RBC % (auto) 0.0 Smear Tech's Comments PT 10.2 INR 0.9 Anion Gap 13 Estim Creat Clear Calc 48.2 Estimated GFR > 60 Random Glucose 143 H Calcium 9.0 Total Bilirubin 0.8 AST 19 ALT 19 Alkaline Phosphatase 88 Total Protein 6.1 L Albumin 3.8 Urine Color Urine Appearance Urine pH Ur Specific [place] Urine Protein Urine Glucose (UA) Urine Ketones Urine Blood Urine Nitrite Ur Leukocyte Esterase Urine RBC Urine WBC Ur Squamous Epith Cells Urine Bacteria Hyaline Casts Blood Type Antibody Screen 10/31/22 10/31/22 11/01/22 18:07 20:50 05:49 MCV 87.3 MCH 29.8 MCHC 34.1 RDW 12.8 Plt Count 245 MPV 9.7 Immature Gran % (Auto) 0.6 H Neut % (Auto) 79.8 H Lymph % (Auto) 9.8 L [place] % (Auto) 9.5 Eos % (Auto) 0.1 Baso % (Auto) 0.2 Lymph # (Auto) 1.6 [place] # (Auto) 1.5 H Eos # (Auto) 0.0 Baso # (Auto) 0.0 Abs Immat Gran (auto) 0.10 H Absolute Neuts (auto) 12.9 H Absolute Nucleated RBC 0.000 Nucleated RBC % (auto) 0.0 Smear Tech's Comments VERIFIED PT INR Anion Gap Estim Creat Clear Calc Estimated GFR Random Glucose Calcium Total Bilirubin AST ALT Alkaline Phosphatase Total Protein Albumin Urine Color Yellow Urine Appearance Cloudy Urine pH 7.5 Ur Specific [place] 1.010 Urine Protein Negative Urine Glucose (UA) Negative Urine Ketones Negative Urine Blood Negative Urine Nitrite Negative Ur Leukocyte Esterase Trace H Urine RBC 0-2 Urine WBC 0-5 Ur Squamous Epith Cells 0-2 Urine Bacteria None Seen Hyaline Casts 0-2 Blood Type O Positive Antibody Screen NEGATIVE 11/01/22 05:49 MCV MCH MCHC RDW Plt Count MPV Immature Gran % (Auto) Neut % (Auto) Lymph % (Auto) [place] % (Auto) Eos % (Auto) Baso % (Auto) Lymph # (Auto) [place] # (Auto) Eos # (Auto) Baso # (Auto) Abs Immat Gran (auto) Absolute Neuts (auto) Absolute Nucleated RBC Nucleated RBC % (auto) Smear Tech's Comments PT INR Anion Gap 13 Estim Creat Clear Calc 44.0 Estimated GFR > 60 Random Glucose 116 H Calcium 9.3 Total Bilirubin AST ALT Alkaline Phosphatase Total Protein Albumin Urine Color Urine Appearance Urine pH Ur Specific [place] Urine Protein Urine Glucose (UA) Urine Ketones Urine Blood Urine Nitrite Ur Leukocyte Esterase Urine RBC Urine WBC Ur Squamous Epith Cells Urine Bacteria Hyaline Casts Blood Type Antibody Screen Assessment and Plan (1) Femoral neck fracture: Status: Acute Plan 87-year-old female with pertinent history of essential hypertension, mixed hyperlipidemia, mood disorder who presents to the emergency department for evaluation of left lower extremity discomfort after mechanical fall. Acute left femoral neck displaced fracture due to mechanical fall plan for surgery today, likely ORIF pain management keep NPO Leukocytosis reactive no signs of infection monitor Essential hypertension On metoprolol Mixed hyperlipidemia On simvastatin Mood disorder lorazepam DVT prophylaxis:? Defer Lovenox until surgical evaluation Attending Dr.. Ling DNR/DNI.? Discussed with patient and daughter at bedside continued hospital stay for management of left femoral neck fracture with surgical intervention. Time Spent With Patient Time: Total time managing care of this patient today ____ minutes. Quality Stroke Does the patient have a stroke diagnosis?: No VTE Prior VTE?: No VTE Risk Level:: Medical - moderate - high VTE Device Contraindication: Treatment Not Indicated VTE Drug Contraindication: Treatment Not Indicated
[2022-11-01] MEDS: Metoprolol Succinate ER 50 MG TAB.ER.24H PO (08:31)
[2022-11-01] MEDS: Cholecalciferol (Vitamin D3) 25 MCG TABLET 50 MCG PO (08:31)
[2022-11-01] MEDS: LORazepam 1 MG TABLET PO ×3 (08:31→20:54)
[2022-11-01] MEDS: 0.9 % Sodium Chloride Flush 3 ML SYRINGE IVFLUSH (08:32)
[2022-11-01] MEDS: Lactated Ringers 1,000 ML 50 ML IVCONT ×2 (09:18→12:14)
--- NOTE | 2022-11-01 09:27 | HO.ANESPROP2 ---
HPI - Anesthesia Eval Consult details Narrative: Left femural neck fracture PMFSH Active Problems Active Problems: All Active Problems (Updated 10/31/22 @ 20:29 by Teena Larsen RN) Femoral neck fracture (Acute) Past Medical History Medical History (Updated 11/01/22 @ 09:28 by Mehrdad Freedman MD) Depression Hyperlipemia Hypertension Family History Family history of problems with anesthesia: No Surgical History History of Problems with Anesthesia: No Social History Social History Household Members: None Housing: House Do you presently have visiting nurse or other home services: Yes (PT twice a week) Alcohol intake: never Patient Tobacco Use Status: Former Tobacco user Quit Date: 50 years ago Tobacco use type: Cigarette Advance Directives Date on File: 03/26/20 Meds Allergies Allergy/AdvReac Type Severity Reaction Status Date / Time buspirone [BUSPIRONE] Allergy Intermediate STOMACH Unverified 03/08/20 15:36 UPSET citalopram [CITALOPRAM] Allergy Intermediate STOMACH Unverified 03/08/20 15:36 UPSET paroxetine [PAROXETINE] Allergy Intermediate STOMACH Unverified 03/08/20 15:36 UPSET trazodone [TRAZODONE] Allergy Intermediate STOMACH Unverified 03/08/20 15:36 UPSET levofloxacin [From LEVAQUIN] Allergy Unknown DEPRESSION Unverified 03/08/20 15:36 Active Medications: Current Medications Acetaminophen (Acetaminophen 325 Mg Tablet) 650 mg PO Q6H PRN PRN Reason: Pain, Mild (Pain Scale 1-3) Atorvastatin Calcium (Atorvastatin Calcium 10 Mg Tablet) 10 mg PO BEDTIME [facility] Last Admin: 10/31/22 20:49 Dose: 10 mg Cefazolin Sodium/Dextrose (Ancef) 2 gm in 50 mls @ 100 mls/hr IV PREOP ONE Stop: 11/01/22 12:02 Lactated Ringer's (Lr) 1,000 mls @ 50 mls/hr IVCONT .Q20H [facility] Last Admin: 11/01/22 09:18 Dose: 50 mls/hr Lorazepam (Lorazepam 1 Mg Tablet) 1 mg PO TID [facility] Last Admin: 11/01/22 08:31 Dose: 1 mg Melatonin (Melatonin 3 Mg Tablet) 6 mg PO BEDTIME PRN PRN Reason: Insomnia Metoprolol Succinate (Metoprolol Succinate Er 50 Mg Tab.Er.24h) 50 mg PO DAILY [facility]; Protocol Last Admin: 11/01/22 08:31 Dose: 50 mg Morphine Sulfate (Morphine Sulfate 4 Mg/Ml Cartridge) 4 mg IVPUSH Q4H PRN; Protocol PRN Reason: Pain, Severe (Pain Scale 7-10) Last Admin: 11/01/22 06:58 Dose: 4 mg Ondansetron HCl (Ondansetron Hcl 4 Mg/2 Ml Vial) 4 mg IVPUSH Q8H PRN PRN Reason: Nausea and Vomiting Sodium Chloride (0.9 % Sodium Chloride Flush 3 Ml Syringe) 3 ml IVFLUSH QSHIFT [facility] Last Admin: 11/01/22 08:32 Dose: 3 ml Triamcinolone Acetonide (Triamcinolone Acet 0.5 % Oint 15 Gm Tube) 1 appl TOPICAL DAILY [facility] Last Admin: 11/01/22 09:04 Dose: Not Given Vitamin D (Cholecalciferol (Vitamin D3) 25 Mcg Tablet) 50 mcg PO DAILY [facility] Last Admin: 11/01/22 08:31 Dose: 50 mcg Home Medications Medication Instructions Recorded Confirmed Last Taken Type betamethasone dipropionate 0.05 % 1 appl topical DAILY 10/31/22 10/31/22 Unknown History topical ointment cholecalciferol (vitamin D3) 50 50 mcg PO DAILY 10/31/22 10/31/22 Unknown History mcg (2,000 unit) capsule (Vitamin D3) lorazepam 1 mg tablet 1 mg PO TID 10/31/22 10/31/22 Unknown History metoprolol succinate 50 mg 50 mg PO DAILY 10/31/22 10/31/22 Unknown History tablet,extended release 24 hr simvastatin 10 mg tablet 10 mg PO BEDTIME 10/31/22 10/31/22 Unknown History Exam Exam Date and Time: November 01, [id number] Height,Weight and Vital Signs: Height 5 ft 5 in Weight 58.5 kg Last Vital Signs Temp 97.4 F 11/01/22 08:55 Pulse 99 11/01/22 08:55 Resp 18 11/01/22 08:55 BP 154/87 H 11/01/22 08:55 Pulse Ox 94 11/01/22 08:55 O2 Del Method Room Air 11/01/22 08:55 O2 Flow Rate 2 10/31/22 19:17 Pertinent Lab Results Pertinent Lab Results: Laboratory Tests 10/31/22 10/31/22 10/31/22 16:18 18:05 18:05 WBC 20.1 H RBC 4.60 Hgb 13.8 Hct 39.5 MCV 85.9 MCH 30.0 MCHC 34.9 RDW 12.7 Plt Count 279 MPV 9.1 L Immature Gran % (Auto) 0.8 H Neut % (Auto) 89.9 H Lymph % (Auto) 3.8 L [place] % (Auto) 5.2 Eos % (Auto) 0.0 Baso % (Auto) 0.3 Lymph # (Auto) 0.8 L [place] # (Auto) 1.0 Eos # (Auto) 0.0 Baso # (Auto) 0.1 Abs Immat Gran (auto) 0.16 H Absolute Neuts (auto) 18.1 H Absolute Nucleated RBC 0.000 Nucleated RBC % (auto) 0.0 Smear Tech's Comments PT 10.2 INR 0.9 Sodium 132 L Potassium 3.6 Chloride 102 Carbon Dioxide 21 L Anion Gap 13 BUN 15 Creatinine 0.74 Estim Creat Clear Calc 48.2 Estimated GFR > 60 Random Glucose 143 H Calcium 9.0 Total Bilirubin 0.8 AST 19 ALT 19 Alkaline Phosphatase 88 Total Protein 6.1 L Albumin 3.8 Urine Color Urine Appearance Urine pH Ur Specific [place] Urine Protein Urine Glucose (UA) Urine Ketones Urine Blood Urine Nitrite Ur Leukocyte Esterase Urine RBC Urine WBC Ur Squamous Epith Cells Urine Bacteria Hyaline Casts Blood Type Antibody Screen 10/31/22 10/31/22 11/01/22 18:07 20:50 05:49 WBC 16.2 H RBC 4.80 Hgb 14.3 Hct 41.9 MCV 87.3 MCH 29.8 MCHC 34.1 RDW 12.8 Plt Count 245 MPV 9.7 Immature Gran % (Auto) 0.6 H Neut % (Auto) 79.8 H Lymph % (Auto) 9.8 L [place] % (Auto) 9.5 Eos % (Auto) 0.1 Baso % (Auto) 0.2 Lymph # (Auto) 1.6 [place] # (Auto) 1.5 H Eos # (Auto) 0.0 Baso # (Auto) 0.0 Abs Immat Gran (auto) 0.10 H Absolute Neuts (auto) 12.9 H Absolute Nucleated RBC 0.000 Nucleated RBC % (auto) 0.0 Smear Tech's Comments VERIFIED PT INR Sodium Potassium Chloride Carbon Dioxide Anion Gap BUN Creatinine Estim Creat Clear Calc Estimated GFR Random Glucose Calcium Total Bilirubin AST ALT Alkaline Phosphatase Total Protein Albumin Urine Color Yellow Urine Appearance Cloudy Urine pH 7.5 Ur Specific [place] 1.010 Urine Protein Negative Urine Glucose (UA) Negative Urine Ketones Negative Urine Blood Negative Urine Nitrite Negative Ur Leukocyte Esterase Trace H Urine RBC 0-2 Urine WBC 0-5 Ur Squamous Epith Cells 0-2 Urine Bacteria None Seen Hyaline Casts 0-2 Blood Type O Positive Antibody Screen NEGATIVE 11/01/22 05:49 WBC RBC Hgb Hct MCV MCH MCHC RDW Plt Count MPV Immature Gran % (Auto) Neut % (Auto) Lymph % (Auto) [place] % (Auto) Eos % (Auto) Baso % (Auto) Lymph # (Auto) [place] # (Auto) Eos # (Auto) Baso # (Auto) Abs Immat Gran (auto) Absolute Neuts (auto) Absolute Nucleated RBC Nucleated RBC % (auto) Smear Tech's Comments PT INR Sodium 133 L Potassium 4.3 Chloride 102 Carbon Dioxide 22 Anion Gap 13 BUN 15 Creatinine 0.81 Estim Creat Clear Calc 44.0 Estimated GFR > 60 Random Glucose 116 H Calcium 9.3 Total Bilirubin AST ALT Alkaline Phosphatase Total Protein Albumin Urine Color Urine Appearance Urine pH Ur Specific [place] Urine Protein Urine Glucose (UA) Urine Ketones Urine Blood Urine Nitrite Ur Leukocyte Esterase Urine RBC Urine WBC Ur Squamous Epith Cells Urine Bacteria Hyaline Casts Blood Type Antibody Screen Airway Mallampati Class: II TM Dist: >3cm Loose/Missing/Broken Teeth: No Heart: RRR Lungs: CTA Assessment and Plan Assessment Anesthesia Assessment: Anesthesia Plan Discussed and Chart Reviewed Final Anesthetic Review Family History of Problems with Anesthesia: No History of Problems with Anesthesia: No NPO: Yes ASA Class: III Final Preanesthetic Review: No Changes in Pt Med Stat, Meds/Allgs Chart Reviewed, Consent Obtained/Reviewed and Anes Risks/Benef Reviewed Patient Risk: Intermediate Procedure Risk: Intermediate Anesthetic Plan Anesthetic Plan: GA Disposition: Standard PACU
--- NOTE | 2022-11-01 11:16 | P.BOP_ITS ---
Brief Operative Note Date of Service: 11/01/22 Pre-op diagnosis: Left femoral neck fracture Post-op diagnosis: same Procedure: Hemiarthroplasty left femoral neck Implants: [place] Trident2 127deg #4 with +4- Surgeon: Clifford Ruiz MD Anesthesia: GETA and local Was an Canvas Worker Apprentice used for this Procedure?: Yes Canvas Worker Apprentice: Anastasia Carrion Estimated blood loss (mL): 150 IV fluids (mL): 650 Pathology: other Condition: stable Disposition: PACU
[2022-11-01] MEDS: Acetaminophen 1,000 MG/100 ML PIGGYBACK 400 MG IV (11:31)
--- NOTE | 2022-11-01 13:56 | MHC.CM.PN ---
PT REPORTS SHE LIVES ALONE AND IS INDEPENDENT WITH SELF CARE SHE SAYS SHE NOW HAS A CANE THAT SHE RECENTLY STARTED USING SHE SAYS SHE HAS PT SERVICES 2X/ WEEK, BUT DOES NOT KNOW THE AGENCY NAME SHE IS DAVID SABILLON[facility] SHE SAYS HER DAUGHTER IS HER HCP COPY REQUESTED PCP: GRETA [facility] DELIVERED CURRENT DC PLAN IS STR-REFERRALS OUT BLS TRANSPORT PT GIVES CM PERMISSION TO CONTACT HER DAUGHTER FOR MORE INFORMATION VM MESSAGE LEFT FOR PTS DAUGHTER, MARILYN [phone] REQUESTING A RETURN CALL
[2022-11-01] MEDS: Lactated Ringers 1,000 ML 100 ML IVCONT ×2 (14:17→23:32)
[2022-11-01] MEDS: ondansetron HCL 4 MG/2 ML VIAL IVPUSH (14:17)
[2022-11-01] MEDS: ceFAZolin Sodium/Dextrose,Iso 2 GM/50 ML PIGGYBACK IV (15:29)
[2022-11-01] MEDS: Atorvastatin Calcium 10 MG TABLET PO (20:54)
[2022-11-01] MEDS: oxyCODONE HCl ER 10 MG TAB.ER.12H PO (20:54)
[2022-11-01] MEDS: Docusate Sodium 100 MG CAPSULE PO (20:54)
[2022-11-01] MEDS: Celecoxib 200 MG CAPSULE PO (20:55)
[2022-11-02 03:00] VITALS: BP 134/70; PULSE 91; RESP 18; TEMP 36.2; O2SAT 99
[2022-11-02 04:20] LABS: MANUAL DIFF FLAG NO
[2022-11-02 04:22] LABS: Basophils Percent Auto 0.2 % (0-2); Eosinophils Percent Auto 0.1 % (0-4); Hematocrit 33.9 % (37.0-47.0); Hemoglobin 11.6 g/dl (12.0-16.0); Imm Gran Pct Auto 0.6 % (0.0-0.4); Lymphocytes Absolute Auto 0.9 X10*3/uL (1.2-4.9); Lymphocytes Percent Auto 5.6 % (20-40); Mean Corpuscular HGB Conc 34.2 g/dl (31.0-35.0); Mean Corpuscular Hemoglobin 30.6 pg (27.0-33.0); Mean Corpuscular Volume 89.4 fL (80.0-98.0); Mean Platelet Volume 9.5 fL (9.4-12.3); Monocytes Absolute Auto 1.3 X10*3/uL (0.1-1.2); Monocytes Percent Auto 8.1 % (2-11); Neutrophils Absolute Auto 13.6 x10*3/uL (2.0-8.3); Neutrophils Percent Auto 85.4 % (45-73); Platelet Count 214 X10*3/uL (160-400); Red Blood Count 3.79 X10*6/uL (4.20-5.50); Red Cell Distribution Width 12.9 % (11.0-16.0); White Blood Count 15.9 X10*3/uL (4.8-10.8)
[2022-11-02 04:38] LABS: Anion Gap 13 (12-20); Blood Urea Nitrogen 17 mg/dL (9-16); Calcium 8.6 mg/dL (8.4-10.2); Carbon Dioxide 23 mmol/L (22-29); Chloride 101 mmol/L (96-108); Creatinine Clr Calc Pharmacy 45.1; Estimated Glomerular Filt Rate > 60; Glucose Fasting 133 mg/dL (60-99); Potassium 4.2 mmol/L (3.3-5.1); Sodium 133 mmol/L (135-145)
[2022-11-02 07:55] VITALS: BP 148/83; PULSE 106; RESP 20; TEMP 36.3; O2SAT 95
[2022-11-02] MEDS: Lactated Ringers 1,000 ML 100 ML IVCONT (08:25)
[2022-11-02] MEDS: Docusate Sodium 100 MG CAPSULE PO (08:26)
[2022-11-02] MEDS: LORazepam 1 MG TABLET PO ×3 (08:26→20:05)
[2022-11-02] MEDS: Cholecalciferol (Vitamin D3) 25 MCG TABLET 50 MCG PO (08:26)
[2022-11-02] MEDS: oxyCODONE HCl ER 10 MG TAB.ER.12H PO (08:26)
[2022-11-02] MEDS: Triamcinolone Acet 0.5 % Oint 15 GM TUBE 1 APPL TOPICAL (08:27)
[2022-11-02] MEDS: Celecoxib 200 MG CAPSULE PO (08:27)
[2022-11-02] MEDS: Metoprolol Succinate ER 50 MG TAB.ER.24H PO (08:27)
[2022-11-02] MEDS: Enoxaparin Sodium 40 MG/0.4 ML SYRINGE SUBCUT (08:27)
--- NOTE | 2022-11-02 08:57 | P.PNIM_ITS ---
Subjective Subjective Date of Service: 11/02/22 Review of Systems Follow up hip fracture s/p fall pain with movement s/p THR feeling a little confused today Physical Exam Vital Signs: Vital Signs: Last Vital Signs Temp 97.3 F 11/02/22 07:55 Pulse 106 H 11/02/22 07:55 Resp 20 11/02/22 07:55 BP 148/83 H 11/02/22 07:55 Pulse Ox 95 11/02/22 07:55 O2 Del Method Nasal Cannula 11/02/22 07:55 O2 Flow Rate 2 11/02/22 07:55 BMI result Body Mass Index 21.5 Appearing in no acute distress lung sounds are clear to auscultation heart regular rate rhythm, clear S1, S2 positive bowel sounds, abdomen is soft, nontender neuro patient is alert x3, no focal deficits Left hip surgical incision not visualized, dressing intact Objective Data Active Medications Acetaminophen (Acetaminophen 325 Mg Tablet) 650 mg PO Q6H PRN PRN Reason: Pain, Mild (Pain Scale 1-3) Atorvastatin Calcium (Atorvastatin Calcium 10 Mg Tablet) 10 mg PO BEDTIME [facility] Last Admin: 11/01/22 20:54 Dose: 10 mg Documented By: MUNA Celecoxib (Celecoxib 200 Mg Capsule) 200 mg PO BID [facility] Last Admin: 11/02/22 08:27 Dose: 200 mg Documented By: SCOT Docusate Sodium (Docusate Sodium 100 Mg Capsule) 100 mg PO BID [facility] Last Admin: 11/02/22 08:26 Dose: 100 mg Documented By: SCOT Enoxaparin Sodium (Enoxaparin Sodium 40 Mg/0.4 Ml Syringe) 40 mg SUBCUT Q24H [facility] Last Admin: 11/02/22 08:27 Dose: 40 mg Documented By: SCOT Hydromorphone HCl (Hydromorphone Hcl 0.5 Mg/0.5 Ml Syringe) 0.25 mg IVPUSH Q4H PRN; Protocol PRN Reason: Pain, Severe (Pain Scale 7-10) Lactated Ringer's (Lr) 1,000 mls @ 100 mls/hr IVCONT .Q10H [facility] Last Admin: 11/02/22 08:25 Dose: 100 mls/hr Documented By: SCOT Lorazepam (Lorazepam 1 Mg Tablet) 1 mg PO TID [facility] Last Admin: 11/02/22 08:26 Dose: 1 mg Documented By: SCOT Melatonin (Melatonin 3 Mg Tablet) 6 mg PO BEDTIME PRN PRN Reason: Insomnia Metoprolol Succinate (Metoprolol Succinate Er 50 Mg Tab.Er.24h) 50 mg PO DAILY [facility]; Protocol Last Admin: 11/02/22 08:27 Dose: 50 mg Documented By: SCOT Ondansetron HCl (Ondansetron Hcl 4 Mg/2 Ml Vial) 4 mg IVPUSH Q8H PRN PRN Reason: Nausea and Vomiting Last Admin: 11/01/22 14:17 Dose: 4 mg Documented By: ANJELICA Oxycodone HCl (Oxycodone Hcl Immed Release 5 Mg Tablet) 5 mg PO Q4H PRN PRN Reason: Pain, Moderate(Pain Scale 4-6) Oxycodone HCl (Oxycodone Hcl Er 10 Mg Tab.Er.12h) 10 mg PO BID [facility] Last Admin: 11/02/22 08:26 Dose: 10 mg Documented By: SCOT Sodium Chloride (0.9 % Sodium Chloride Flush 3 Ml Syringe) 3 ml IVFLUSH [facility] Last Admin: 11/02/22 07:45 Dose: Not Given Documented By: SCOT Non-Admin Reason: IV Running Sodium Chloride (0.9 % Sodium Chloride Flush 3 Ml Syringe) 3 ml IVFLUSH [facility] Last Admin: 11/02/22 08:25 Dose: Not Given Documented By: SCOT Non-Admin Reason: IV Running Triamcinolone Acetonide (Triamcinolone Acet 0.5 % Oint 15 Gm Tube) 1 appl TOPICAL DAILY [facility] Last Admin: 11/02/22 08:27 Dose: 1 appl Documented By: SCOT Vitamin D (Cholecalciferol (Vitamin D3) 25 Mcg Tablet) 50 mcg PO DAILY [facility] Last Admin: 11/02/22 08:26 Dose: 50 mcg Documented By: SCOT Labs 11/02/22 04:08 11/02/22 04:08 Labs: Laboratory Results - last 24 hr 11/02/22 11/02/22 04:08 04:08 MCV 89.4 MCH 30.6 MCHC 34.2 RDW 12.9 Plt Count 214 MPV 9.5 Immature Gran % (Auto) 0.6 H Neut % (Auto) 85.4 H Lymph % (Auto) 5.6 L [place] % (Auto) 8.1 Eos % (Auto) 0.1 Baso % (Auto) 0.2 Lymph # (Auto) 0.9 L [place] # (Auto) 1.3 H Eos # (Auto) 0.0 Baso # (Auto) 0.0 Abs Immat Gran (auto) 0.10 H Absolute Neuts (auto) 13.6 H Absolute Nucleated RBC 0.000 Nucleated RBC % (auto) 0.0 Anion Gap 13 Estim Creat Clear Calc 45.1 Estimated GFR > 60 Fasting Glucose 133 H Calcium 8.6 D Assessment and Plan (1) Femoral neck fracture: Status: Acute Plan 87-year-old female with pertinent history of essential hypertension, mixed hyperlipidemia, mood disorder who presents to the emergency department for evaluation of left lower extremity discomfort after mechanical fall. Acute left femoral neck displaced fracture due to mechanical fall s/p THR 11/01/22 pain management PT evaluation for STR Leukocytosis. Trending down reactive no signs of infection monitor Essential hypertension On metoprolol Mixed hyperlipidemia On simvastatin Mood disorder lorazepam DVT prophylaxis Lovenox Attending Dr.. Ling DNR/DNI.? continued hospital stay for management of left femoral neck fracture with surgical intervention. Time Spent With Patient Time: Total time managing care of this patient today ____ minutes. Quality Stroke Does the patient have a stroke diagnosis?: No VTE Prior VTE?: No VTE Risk Level:: Medical - moderate - high VTE Device Contraindication: Treatment Not Indicated VTE Drug Contraindication: Treatment Not Indicated
--- NOTE | 2022-11-02 09:38 | PM.PNORT ---
Subjective Subjective Date of Service: 11/02/22 Interval history: POD1 s/p left hip hemiarthroplasty. Patient is resting in bed comfortably. Overnight the patient removed the Aquacel dressing. New dressing applied. Pain is managed. Confused this morning. No additional complaints. Physical Exam Vital Signs: Vital Signs: Last Vital Signs Temp 97.3 F 11/02/22 07:55 Pulse 106 H 11/02/22 07:55 Resp 20 11/02/22 07:55 BP 148/83 H 11/02/22 07:55 Pulse Ox 95 11/02/22 07:55 O2 Del Method Nasal Cannula 11/02/22 07:55 O2 Flow Rate 2 11/02/22 07:55 BMI result Body Mass Index 21.5 Const: General: cooperative, healthy appearing and no acute distress Resp: Effort & Inspection: normal respiratory effort and able to speak in complete sentences Cardio: Rate: regular rate Peripheral pulses: Peripheral pulses 2+ throughout GI: Palpation (GI): Soft to palpation Skin: Lesions: no lesions Rashes: no rashes Extrem: Other: Left hip New Aquacel dressing applied. Incision site is c/d/i. Able to dorsi/plantar flex. NVI Procedures Date of Service Date of Service: 11/02/22 Progress Note: A&P Assessment and plan (1) Status post hip hemiarthroplasty: Status: Acute Assessment and Plan: Continue pain mgmnt Begin Lovenox for dvt ppx begin PT for lt hip hemiarthroplasty - WBAT Dispo planning-Pending PT eval, pain mgmnt Time Spent With Patient Time: Total time managing care of this patient today ____ minutes. Quality Stroke Does the patient have a stroke diagnosis?: No VTE Prior VTE?: No VTE Risk Level:: Medical - moderate - high VTE Device Contraindication: Treatment Not Indicated VTE Drug Contraindication: Treatment Not Indicated
[2022-11-02 11:24] VITALS: O2SAT 93
[2022-11-02 15:04] VITALS: BP 120/69; PULSE 88; RESP 20; TEMP 36.6; O2SAT 96
[2022-11-02] MEDS: 0.9 % Sodium Chloride Flush 3 ML SYRINGE IVFLUSH (15:42)
--- NOTE | 2022-11-02 17:22 | HO.POSTANES ---
Post Anesthesia Evaluation Post Anesthesia Evaluation Vital Signs: Vital Signs Temp Pulse Resp BP Pulse Ox O2 Del Method O2 Flow Rate 11/02/22 15:04 97.8 F 88 20 120/69 96 Room Air 11/02/22 11:24 93 Room Air 11/02/22 07:55 97.3 F 106 H 20 148/83 H 95 Nasal Cannula 2 Anesthesia: General LMA Mental Status: Awake Pain Control: Satisfactory Nausea/Vomiting: None Hydration: Adequate Anesthesia-Related Issues: No Anes. Related Issues
[2022-11-02 19:45] VITALS: BP 110/58; PULSE 95; RESP 18; TEMP 37.1; O2SAT 94
[2022-11-02 19:56] VITALS: BP 132/77; PULSE 81; RESP 18; TEMP 36.3; O2SAT 99
[2022-11-02] MEDS: Atorvastatin Calcium 10 MG TABLET PO (20:05)
[2022-11-03 03:37] VITALS: BP 130/64; PULSE 95; RESP 17; TEMP 37.1; O2SAT 93
[2022-11-03 06:53] LABS: Hematocrit 31.4 % (37.0-47.0); Hemoglobin 10.9 g/dl (12.0-16.0); Mean Corpuscular HGB Conc 34.7 g/dl (31.0-35.0); Mean Corpuscular Hemoglobin 30.2 pg (27.0-33.0); Platelet Count 200 X10*3/uL (160-400); Red Blood Count 3.61 X10*6/uL (4.20-5.50); Red Cell Distribution Width 13.1 % (11.0-16.0); White Blood Count 13.1 X10*3/uL (4.8-10.8)
[2022-11-03] MEDS: oxyCODONE HCl Immed Release 5 MG TABLET PO ×3 (08:00→20:41)
[2022-11-03] MEDS: Cholecalciferol (Vitamin D3) 25 MCG TABLET 50 MCG PO (08:01)
[2022-11-03] MEDS: Metoprolol Succinate ER 50 MG TAB.ER.24H PO (08:01)
[2022-11-03] MEDS: LORazepam 1 MG TABLET PO ×3 (08:01→20:42)
[2022-11-03] MEDS: 0.9 % Sodium Chloride Flush 3 ML SYRINGE IVFLUSH ×2 (08:01→15:59)
[2022-11-03 08:32] VITALS: BP 130/58; PULSE 93; RESP 20; TEMP 36.2; O2SAT 97
--- NOTE | 2022-11-03 08:34 | PM.PNORT ---
Subjective Subjective Date of Service: 11/03/22 Interval history: POD2 s/p left hip hemiarthroplasty. Patient is resting in bed comfortably. Pain is managed. No additional complaints. Physical Exam Vital Signs: Vital Signs: Last Vital Signs Temp 97.2 F 11/03/22 08:32 Pulse 93 11/03/22 08:32 Resp 20 11/03/22 08:32 BP 130/58 L 11/03/22 08:32 Pulse Ox 97 11/03/22 08:32 O2 Del Method Room Air 11/03/22 08:32 O2 Flow Rate 2 11/02/22 07:55 BMI result Body Mass Index 21.5 Const: General: cooperative, healthy appearing and no acute distress Resp: Effort & Inspection: normal respiratory effort and able to speak in complete sentences Cardio: Rate: regular rate Peripheral pulses: Peripheral pulses 2+ throughout GI: Palpation (GI): Soft to palpation Skin: Lesions: no lesions Rashes: no rashes Extrem: Other: Left hip Incision site is c/d/i. Able to dorsi/plantar flex. NVI Procedures Date of Service Date of Service: 11/03/22 Progress Note: A&P Assessment and plan (1) Status post hip hemiarthroplasty: Status: Acute Assessment and Plan: Continue pain mgmnt Lovenox for dvt ppx PT for lt hip hemiarthroplasty - WBAT Dispo planning-Pending PT eval, pain mgmnt Time Spent With Patient Time: Total time managing care of this patient today ____ minutes. Quality Stroke Does the patient have a stroke diagnosis?: No VTE Prior VTE?: No VTE Risk Level:: Medical - moderate - high VTE Device Contraindication: Treatment Not Indicated VTE Drug Contraindication: Treatment Not Indicated
[2022-11-03] MEDS: Enoxaparin Sodium 40 MG/0.4 ML SYRINGE SUBCUT (09:03)
[2022-11-03] MEDS: Triamcinolone Acet 0.5 % Oint 15 GM TUBE 1 APPL TOPICAL (09:05)
--- NOTE | 2022-11-03 09:54 | HO.PM.IMPN ---
Subjective Subjective Date of Service: 11/03/22 Review of Systems Follow up hip fracture s/p fall pain with movement s/p THR Physical Exam Vital Signs: Vital Signs: Last Vital Signs Temp 97.2 F 11/03/22 08:32 Pulse 93 11/03/22 08:32 Resp 20 11/03/22 08:32 BP 130/58 L 11/03/22 08:32 Pulse Ox 97 11/03/22 08:32 O2 Del Method Room Air 11/03/22 08:32 O2 Flow Rate 2 11/02/22 07:55 BMI result Body Mass Index 21.5 Appearing in no acute distress lung sounds are clear to auscultation heart regular rate rhythm, clear S1, S2 positive bowel sounds, abdomen is soft, nontender neuro patient is alert x3, no focal deficits surgical dressing intact Objective Data Active Medications Atorvastatin Calcium (Atorvastatin Calcium 10 Mg Tablet) 10 mg PO BEDTIME [facility] Last Admin: 11/02/22 20:05 Dose: 10 mg Documented By: NATY Enoxaparin Sodium (Enoxaparin Sodium 40 Mg/0.4 Ml Syringe) 40 mg SUBCUT Q24H [facility] Last Admin: 11/03/22 09:03 Dose: 40 mg Documented By: FRIDA Lorazepam (Lorazepam 1 Mg Tablet) 1 mg PO TID [facility] Last Admin: 11/03/22 08:01 Dose: 1 mg Documented By: FRIDA Melatonin (Melatonin 3 Mg Tablet) 6 mg PO BEDTIME PRN PRN Reason: Insomnia Metoprolol Succinate (Metoprolol Succinate Er 50 Mg Tab.Er.24h) 50 mg PO DAILY [facility]; Protocol Last Admin: 11/03/22 08:01 Dose: 50 mg Documented By: FRIDA Morphine Sulfate (Morphine Sulfate 2 Mg/Ml Cartridge) 2 mg IVPUSH Q4H PRN; Protocol PRN Reason: Pain, Mild (Pain Scale 1-3) Oxycodone HCl (Oxycodone Hcl Immed Release 5 Mg Tablet) 5 mg PO Q4H PRN PRN Reason: Pain, Mild (Pain Scale 1-3) Last Admin: 11/03/22 08:00 Dose: 5 mg Documented By: FRIDA Sodium Chloride (0.9 % Sodium Chloride Flush 3 Ml Syringe) 3 ml IVFLUSH QSHIFT [facility] Last Admin: 11/03/22 08:01 Dose: 3 ml Documented By: FRIDA Triamcinolone Acetonide (Triamcinolone Acet 0.5 % Oint 15 Gm Tube) 1 appl TOPICAL DAILY [facility] Last Admin: 11/03/22 09:05 Dose: 1 appl Documented By: FRIDA Vitamin D (Cholecalciferol (Vitamin D3) 25 Mcg Tablet) 50 mcg PO DAILY [facility] Last Admin: 11/03/22 08:01 Dose: 50 mcg Documented By: FRIDA Labs 11/03/22 05:42 11/02/22 04:08 Labs: Laboratory Results - last 24 hr 11/03/22 05:42 MCV 87.0 MCH 30.2 MCHC 34.7 RDW 13.1 Plt Count 200 MPV 10.0 Absolute Nucleated RBC 0.000 Nucleated RBC % (auto) 0.0 Assessment and Plan (1) Femoral neck fracture: Status: Acute Plan 87-year-old female with pertinent history of essential hypertension, mixed hyperlipidemia, mood disorder who presents to the emergency department for evaluation of left lower extremity discomfort after mechanical fall. Acute left femoral neck displaced fracture due to mechanical fall s/p THR 11/01/22 pain management still an issue PT rec STR when medically clear Leukocytosis. Trending down reactive no signs of infection monitor Essential hypertension On metoprolol Mixed hyperlipidemia On simvastatin Mood disorder lorazepam DVT prophylaxis Lovenox Attending Dr. Loya DNR/DNI.? continued hospital stay for management of left femoral neck fracture with surgical intervention. Time Spent With Patient Time: Total time managing care of this patient today ____ minutes. Quality Stroke Does the patient have a stroke diagnosis?: No VTE Prior VTE?: No VTE Risk Level:: Medical - moderate - high VTE Device Contraindication: Treatment Not Indicated VTE Drug Contraindication: Treatment Not Indicated
--- NOTE | 2022-11-03 13:55 | MHC.CM.PN ---
IMM 11/03/22 Female s/p RENEE PT eval recommends STR. Pt preferences were obtained and referrals were sent. The patient received a bed offer from [facility]. She accepted the bed. Transportation is pre-booked for 11am tomorrow.
--- NOTE | 2022-11-03 14:28 | P.CDIM_ITS ---
PROVIDER RESPONSE TEXT: To clarify, the appropriate diagnosis supported by the clinical indicators: Acute blood loss anemia: post surgical QUERY TEXT: PHYSICIAN'S DOCUMENTATION REQUEST Date of Query: 11/03/2022 01:17 PM EDT Patient Name: Agatha Garza Admit Date: 10/31/2022 Dear Talita Keen, A review of the medical record indicates additional documentation may be needed. Please review below and update the documentation accordingly. Clinical Indicators: H&H on 11/01/22: 14.3/41.9 H&H on 11/03/22: 10.9/31.4 s/p 11/01/22: Hemiarthroplasty left femoral neck EBL: 150 ml The following diagnoses or signs and symptoms were noted in the patient record: Based on the above, could you clarify the appropriate diagnosis, if significant, that supports the ab ove abnormalities and additional evaluation, monitoring, and/or treatment rendered: Acute blood loss anemia Labs indicate a diagnosis of (please specify) Other (explain) Clinically unable to determine (explain) Thank you, Marlene Ferrell RN Use of terms such as suspected, likely, concern for, or probable (associated with a specific diagnosi s that is being evaluated, monitored, or treated as if it exists) are acceptable and can be coded in the inpatient se tting, when documented at the time of discharge. Please use your independent medical judgment in providing your response. THIS QUERY IS PART OF THE PERMANENT MEDICAL RECORD
[2022-11-03 15:04] VITALS: BP 129/71; PULSE 110; RESP 20; TEMP 37.5; O2SAT 94
--- NOTE | 2022-11-03 17:01 | PC.NURSE ---
[facility] was d/c on days,patient was due to void at 3 pm,unable to urinate,sat on a commode for a while,bladder scanned for 15 ml,denies discomfort at present,CORA Mckeon notified
[2022-11-03 18:24] LABS: COVID-19 Test Negative (Negative); IDNOW Serial# BCCEAD1C
[2022-11-03 18:58] VITALS: BP 161/88; PULSE 99; RESP 20; TEMP 37.4; O2SAT 93
--- NOTE | 2022-11-03 19:00 | PC.NURSE ---
Patient unable to urinate ,khloe scanned for 380 ml,CORA Keen notified
--- NOTE | 2022-11-03 19:15 | PM.EVENT ---
Event Note Date of Service: 11/03/22 Event Note: patient complaining of difficulty urinating, feels uncomfortable, urgency, scan to have 380 mL of urin, will straight cath and send urine sample Time Spent With Patient Time: Total time managing care of this patient today ____ minutes.
[2022-11-03 19:47] LABS: Appearance Urine Clear; Color Urine Yellow; Glucose Urine UA 250 mg/dL (Negative); Leukocyte Esterase Urine Trace (Negative); Nitrite Urine Negative (Negative); PH 6.5 (5.0-9.0); UMIC TRIGGER UACC YES; Urine Blood Moderate (2+) (Negative); Urine Ketones Negative (Negative); Urine Protein 30 (1+) mg/dL (Neg-Trace)
[2022-11-03 20:09] LABS: Bacteria Urine None Seen (None Seen); Hyaline Casts Urine 0-2 /LPF (0-2); RBC Urine >20 /HPF (0-2); Squamous Epithelial Cell Urine 0-2 /HPF (0-2); WBC Urine 0-5 /HPF (0-5)
[2022-11-03] MEDS: polyethylene glycoL 3350 17 GM POWD.PACK PO (20:40)
[2022-11-03] MEDS: Atorvastatin Calcium 10 MG TABLET PO (20:41)
[2022-11-04] MEDS: 0.9 % Sodium Chloride Flush 3 ML SYRINGE IVFLUSH ×2 (00:10→08:50)
[2022-11-04 04:00] VITALS: BP 157/76; PULSE 70; RESP 18; TEMP 37.1; O2SAT 96
[2022-11-04] MEDS: oxyCODONE HCl Immed Release 5 MG TABLET PO ×2 (05:07→10:40)
[2022-11-04 06:31] VITALS: RESP 18
--- NOTE | 2022-11-04 07:24 | PM.PNORT ---
Subjective Subjective Date of Service: 11/04/22 Principal diagnosis: S/p left femroal neck fracture and left hip mumtaz Interval history: Straight cathed overnight. Otherwise no events. Feels well. 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 Quality Stroke Does the patient have a stroke diagnosis?: No VTE Prior VTE?: No VTE Risk Level:: Medical - moderate - high VTE Device Contraindication: Treatment Not Indicated VTE Drug Contraindication: Treatment Not Indicated
[2022-11-04 07:28] VITALS: BP 129/76; PULSE 87; RESP 16; TEMP 36.3; O2SAT 93
[2022-11-04] MEDS: LORazepam 1 MG TABLET PO (08:50)
[2022-11-04] MEDS: Metoprolol Succinate ER 50 MG TAB.ER.24H PO (08:50)
[2022-11-04] MEDS: polyethylene glycoL 3350 17 GM POWD.PACK PO (08:50)
[2022-11-04] MEDS: Cholecalciferol (Vitamin D3) 25 MCG TABLET 50 MCG PO (08:50)
[2022-11-04] MEDS: Enoxaparin Sodium 40 MG/0.4 ML SYRINGE SUBCUT (08:50)
[2022-11-04] MEDS: Triamcinolone Acet 0.5 % Oint 15 GM TUBE 1 APPL TOPICAL (08:51)
--- NOTE | 2022-11-04 09:45 | P.OP_ITS ---
Operative Note Operative Note Date of Service: 11/01/22 Narrative: Date of Service: 11/01/22 Pre-op diagnosis: Left femoral neck fracture Post-op diagnosis: same Procedure: Hemiarthroplasty left femoral neck Implants: Taz Trident2 127deg #4 with +4- Surgeon: Clifford Ruiz MD Anesthesia: GETA and local Was an Typewriter Ribbon Winder used for this Procedure?: Yes Typewriter Ribbon Winder: Anastasia Carrion Estimated blood loss (mL): 150 IV fluids (mL): 650 Pathology: other Condition: stable Disposition: PACU Procedure in detail: Patient was brought to the operative room placed in the lateral decubitus position. All bony prominences were well padded and the was prepped and draped in standard sterile fashion. IV antibiotics per weight were administered and a time-out was called to identify proper site proper procedure proper surgeon. Radiographs were available and confirmed. I began by making a curvilinear incision over the posterolateral aspect of the greater trochanter. Dissection was taken down to the tensor fascia which was incised in line with the incision and a Charnley retractor was placed. The hip was internally rotated and the external rotators were identified. All vessels in the area were cauterized and a full-thickness capsular/external rotator layer was developed in a hockey-stick fashion starting just proximal to the piriformis. This layer was tagged and the displaced femoral neck fracture was identified. Clean-up cuts was performed while protecxtion the posterolateral soft tissues and the head was removed and measured (44 mm) on the back table. I then copiously irrigated the acetabulum and removed all bony fragments. Once this was done I used a cookie cutter to lateralize and a Charnley awl to identify the canal and then sequentially broached up to a 127 deg #4. I then trialed with a standard +4 head and a bipolar component matching the femoral head size. I was satisfied with the range of motion and stability and length. Therefore I removed all instrumentation and copiously irrigated. I then placed my final femoral implant and then retrialed. I was satisfied with the+ implant. My final bipolar components were then placed. I closed the capsular layer with FiberWire and then, after a three minute iodine soak, I performed a layered closure with harjinder on skin. The patient was placed in sterile dressing extubated brought to recovery room in stable condition there were no known complications.
--- NOTE | 2022-11-04 10:36 | MHC.CM.PN ---
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
[2022-11-04] MEDS: Tamsulosin HCL 0.4 MG CAPSULE PO (10:39)
--- NOTE | 2022-11-04 10:59 | P.DS_ITS ---
DS: Providers Provider Date of Service: 11/04/22 Date of admission: 10/31/22 19:25 Primary care physician: Jason Patel MD DS: Diagnosis Discharge Diagnosis (1) Status post hip hemiarthroplasty: Status: Acute DS: Summary Hospital Course Hospital Course: HP as per admitting provider This is a 87-year-old female with pertinent history of essential hypertension, mixed hyperlipidemia, mood disorder who presents to the emergency department for evaluation of left lower extremity discomfort after mechanical fall.? Patient states she tried to switch off her fan and turn around when she slipped on the carpet and fell.? Patient fell on her left side and has been having left lower extremity discomfort since.? Difficulty with ambulation due to the pain.? Denies loss of consciousness, jerking movement of extremities, tongue bite, urinary or bowel incontinence.? No dizziness or lightheadedness prior to the fall.? Patient denies chest discomfort, fevers, chills, palpitation, shortness of breath, abdominal pain, changes in urinary or bowel habits.? Does have vitamin-D deficiency and is on supplementation. The emergency department imaging with left femoral neck displaced fracture . Acute left femoral neck displaced fracture due to mechanical fall. s/p THR 11/01/22. Followed by orthopedic surgery. follow up o/p Urinary retention. Started on Flomax, bladder scan every shift until patient has good output. encourage ambulation as well which should also help. Leukocytosis. Trending down, reactive. No other signs of infection Essential hypertension. On metoprolol Mixed hyperlipidemia. On simvastatin Mood disorder. lorazepam Time Spent with Patient Time attestation: Total time managing care of this patient today ____ minutes. Discharge coordination time: Greater than 30 minutes Quality: Safe Use of Opioids Does Pt have an Active Cancer Diagnosis on the Problem List?: No Quality: Stroke Does the patient have a stroke diagnosis?: No Physical Exam Vital Signs: Vital Signs: Last Vital Signs Temp 97.3 F 11/04/22 07:28 Pulse 87 11/04/22 07:28 Resp 16 11/04/22 07:28 BP 129/76 11/04/22 07:28 Pulse Ox 93 11/04/22 07:28 O2 Del Method Room Air 11/04/22 07:28 O2 Flow Rate 2 11/02/22 07:55 BMI result Body Mass Index 21.5 DS: Data Data Completed and Pending Pending studies at discharge: Pending at discharge 11/01/22 11:05 Surgical Path [Surgical] [PTH] Routine Labs on day of discharge: Laboratory Results - last 24 hr 11/03/22 11/03/22 17:10 19:26 Urine Color Yellow Urine Appearance Clear Urine pH 6.5 Ur Specific [place] 1.020 Urine Protein 30 (1+) H Urine Glucose (UA) 250 H Urine Ketones Negative Urine Blood Moderate (2+) H Urine Nitrite Negative Ur Leukocyte Esterase Trace H Urine RBC >20 H Urine WBC 0-5 Ur Squamous Epith Cells 0-2 Urine Bacteria None Seen Hyaline Casts 0-2 COVID-19 (ALCON) Negative COVID-19 Clin Com See Note Discharge Plan Discharge Anticipated Discharge Date/Time: 11/04/22 09:57 Patient Disposition: Xfer Inpatient Rehab Fac Discharge Diagnosis: Left femoral neck fracture Status post left hip hemiarthroplasty Leukocytosis Urinary retention Referrals: [facility] [Outside] - 1 Week Jason Patel MD [Primary Care Provider] - 1 Week Discharge Medications: New oxycodone 5 mg Tablet 5 mg PO Q4H PRN (Reason: Pain, Mild (Pain Scale 1-3)) Qty: 18 0RF Rx Instructions: Partial Fill upon patient request. tamsulosin 0.4 mg Capsule 0.4 mg PO DAILY Qty: 30 0RF Continued metoprolol succinate 50 mg tablet extended release 24 hr 50 mg PO DAILY simvastatin 10 mg tablet 10 mg PO BEDTIME lorazepam 1 mg tablet 1 mg PO TID betamethasone dipropionate 0.05 % Ointment 1 appl TOPICAL DAILY Rx Instructions: FOR AROUND URETHRA cholecalciferol (vitamin D3) [Vitamin D3] 50 mcg (2,000 unit) Capsule 50 mcg PO DAILY Discharge Orders: Discharge Order (Routine); Ordered 11/04/22 Ordered By: Talita Keen Diet: Advance to usual diet Activity on Discharge: As tolerated Stand Alone Forms: Patient Portal Discharge page Care Plan Goals: Physical therapy Health Concerns: Left femoral neck fracture Status post left hip hemiarthroplasty Leukocytosis Urinary retention Plan of Treatment: Follow-up with primary care provider and orthopedic surgeon as needed Take all medications as prescribed Patient having some difficulty with urination, bladder scan every shift, started on Flomax Assessment: See discharge summary
== END 2022-11-04 11:29 | DRG 522 ==
LOC: HO.ED 16:12 → HO.EDOVER 19:31 → HO.S3 20:02
PROVIDERS: Internal Medicine; Orthopaedic Surgery; Physician Assistant; Admitting Provider Student in an Organized Health Care Education/Training Program; Emergency Provider Internal Medicine; PCP Internal Medicine; Visit Provider Nurse Practitioner Acute Care
PROC: 0SRS0JA Replacement of Left Hip Joint, Femoral Surface with Synthetic Substitute, Uncemented, Open Approach (ICD-10-PCS; CPT 27125; principal; 2022-11-01 12:00)
DX: S72.002A Fracture of unspecified part of neck of left femur, initial encounter for closed fracture (principal); D62 Acute posthemorrhagic anemia; R33.9 Retention of urine, unspecified; W19.XXXA Unspecified fall, initial encounter; Z66 Do not resuscitate; F32.A Depression, unspecified; E78.2 Mixed hyperlipidemia; I10 Essential (primary) hypertension; Z20.822 Contact with and (suspected) exposure to COVID-19; Z87.891 Personal history of nicotine dependence; Z79.899 Other long term (current) drug therapy
CPT/HCPCS: 36415; 71045; 72170; 73502; 80048; 80053; 81001; 81003; 85025; 85027; 85610; 86850; 86900; 86901; 87635; 88304; 88305; 88311; 93005; 97110; 97116; 97162; 99285; C1758; C1776; J0131; J0690; J1100; J1170; J1650; J2270; J2405; J2795; J3010

== ENCOUNTER 2022-11-13 07:52 | Outpatient (REF) | payer MEDICARE, SELFPAY ==
--- NOTE | ~2022-11-13 | XR_ITS ---
EXAMINATION: XR PELVIS CLINICAL INFORMATION: Pain in left shoulder COMPARISON: 11/01/2022 TECHNIQUE: 3 views of pelvis FINDINGS: Patient is status post total hip replacement on the left with well aligned prosthesis. There are surgical harjinder seen in the skin. Right hip is unremarkable. XR/XR pelvis 1-2V IMPRESSION: Well-positioned left hip prosthesis
== END 2022-11-13 07:53 | disposition home or self-care (01) ==
LOC: HO.HOSX 07:52
PROVIDERS: Visit Provider Physician Assistant
DX: Z13.89 Encounter for screening for other disorder (principal)

== ENCOUNTER 2022-11-24 08:34 | Outpatient (REF) | payer OTHER, MEDICARE, SELFPAY | END 2022-11-24 08:35 | disposition home or self-care (01) | LOC: HO.HOSX 08:34 | PROVIDERS: Visit Provider Orthopaedic Surgery | DX: Z47.1 Aftercare following joint replacement surgery (principal); Z96.642 Presence of left artificial hip joint | CPT/HCPCS: 72170; 99212 ==

== ENCOUNTER → 2022-12-15 10:04 | Outpatient (BNVA) | payer MEDICARE, SELFPAY | PROVIDERS: PCP Internal Medicine; Visit Provider Orthopaedic Surgery ==

== ENCOUNTER 2023-01-26 10:05 | Outpatient (REF) | payer MEDICARE, SELFPAY ==
--- NOTE | ~2023-01-26 | XR_ITS ---
EXAMINATION: XR PELVIS CLINICAL INFORMATION: Hip pain. COMPARISON: 11/24/2022 TECHNIQUE: AP view of the pelvis. FINDINGS: The visualized osseous pelvic ring is intact. There is mild osteophyte formation of the right hip. No acute fracture or subluxation. The components of the left hip hemiarthroplasty are appropriately positioned and stable compared to prior radiographs. No fracture or osteolysis around the stem of the left hip arthroplasty. Soft tissues are unremarkable. XR/XR pelvis 1-2V IMPRESSION: * No radiographic evidence of complications after left hip hemiarthroplasty. No osteolysis or fracture around the hardware. * Mild osteoarthritis of the right hip.
== END 2023-01-26 10:06 | disposition home or self-care (01) ==
LOC: HO.HOSX 10:05
PROVIDERS: Visit Provider Orthopaedic Surgery
DX: M25.552 Pain in left hip (principal); Z47.1 Aftercare following joint replacement surgery; Z96.642 Presence of left artificial hip joint
CPT/HCPCS: 72170

== ENCOUNTER 2023-01-26 10:51 | Outpatient (AMB) | payer MEDICARE, SELFPAY ==
--- NOTE | 2023-01-26 11:01 | A.OFFVIS_ITS ---
Intake Intake Visit Reasons: PO- left hip hemiarthroplasty - 11/04/2022 Intake Note: Agatha is an 87 year old female who presents today with her daughter for a post operative appointment s/p Left Hip Aldair 11/04/22. Patient reports that she is doing well, she has been walking with a walker. She still feels a bit weak but is doing well. She is still working with PT. Her pain is very mild, but is occasionally felt when she over does it. Allergies buspirone [BUSPIRONE] Allergy (Intermediate, Unverified 12/15/22 10:15) STOMACH UPSET citalopram [CITALOPRAM] Allergy (Intermediate, Unverified 12/15/22 10:15) STOMACH UPSET paroxetine [PAROXETINE] Allergy (Intermediate, Unverified 12/15/22 10:15) STOMACH UPSET trazodone [TRAZODONE] Allergy (Intermediate, Unverified 12/15/22 10:15) STOMACH UPSET levofloxacin [From LEVAQUIN] Allergy (Unknown, Unverified 12/15/22 10:15) DEPRESSION lactose Allergy (Unverified 12/15/22 10:15) Gastrointestinal Upset HPI PO- left hip hemiarthroplasty - 11/04/2022 HPI Details Agatha is an 87 year old woman, who is legally blind, ~3 months S/P left femoral neck fx & hemiarthroplasty. She is here today with her daughter. She says she is doing well and has been walking with a walker & working with PT. She says her pain is improving but she continues to have some pain & tenderness with activity She continues to reside at [facility]. [facility] Medical History Depression Hyperlipemia Hypertension Social History Household Members: None Housing: House Do you presently have visiting nurse or other home services: Yes (PT twice a week) Alcohol intake: never Patient Tobacco Use Status: Former Tobacco user Quit Date: 50 years ago Tobacco use type: Cigarette Advance Directives Date on File: 03/26/20 service: No Current occupational status: retired Review of Systems Const All systems reviewed & are unremarkable except as noted in HPI and below Physical Exam Const General: no acute distress and alert Orientation/consciousness: patient oriented x3 Neuro General: patient oriented x3 Extrem Other: Left Hip: Well-healed incision No pain with impingement testing Psych Appearance: grossly normal Affect: normal affect Attitude: cooperative Results Reviewed Results Reviewed: I personally reviewed relevant radiographs. Satisfactory appearance of left hip hemiarthroplasty with no evidence of hardware complication or evidence of loosening Assessment & Plan Assessment & Plan (1) Status post hip hemiarthroplasty: Code(s): Z96.649 - Presence of unspecified artificial hip joint Plan: This is an 87 year old woman who presents S/P left hip hemiarthroplasty, DOS: 11/04/22, complicated by a fall, dislocation, and reduction of the hip, DOI: 11/08/22. She is doing well overall and her radiographs show no hardware complica tions. She is able to ambulate using an assistive walker. I recommend she continue with PT for strengthening, and continue to use her walker for ambulation. I recommend she continue to reside at [facility] while she recovers, due to her legally blind status and hx of falls. She will follow up in 3 months. Plan Scribed for Clifford Ruiz MD by Ehsan León, director of graduate medical education, on 01/26/23 at 11:20 AM, EST. Orders: Orders XR pelvis 1-2V Today M25.559 - Pain in unspecified hip Coding Level of Care Code Global (64683) Diagnoses Status post hip hemiarthroplasty Z96.649
== END 2023-01-26 11:22 | disposition home or self-care (01) ==
PROVIDERS: PCP Internal Medicine; Visit Provider Orthopaedic Surgery
DX: Z96.649 Presence of unspecified artificial hip joint (principal)
CPT/HCPCS: 99024

== ENCOUNTER 2023-04-27 10:32 | Outpatient (AMB) | payer MEDICARE, SELFPAY ==
--- NOTE | 2023-04-27 10:33 | A.OFFVIS_ITS ---
Intake Intake Visit Reasons: OV-Left Hip Intake Note: Agatha is an 87 year old female who presents today with her daughter for a follow up appointment s/p Left Hip Aldair 11/04/22. Patient reports that she is doing well, she only has some mild discomfort with prolonged sitting but this is resolved when she starts moving again Allergies buspirone [BUSPIRONE] Allergy (Intermediate, Unverified 12/15/22 10:15) STOMACH UPSET citalopram [CITALOPRAM] Allergy (Intermediate, Unverified 12/15/22 10:15) STOMACH UPSET paroxetine [PAROXETINE] Allergy (Intermediate, Unverified 12/15/22 10:15) STOMACH UPSET trazodone [TRAZODONE] Allergy (Intermediate, Unverified 12/15/22 10:15) STOMACH UPSET levofloxacin [From LEVAQUIN] Allergy (Unknown, Unverified 12/15/22 10:15) DEPRESSION lactose Allergy (Unverified 12/15/22 10:15) Gastrointestinal Upset HPI OV-Left Hip HPI Details Agatha is an 88 year old woman, who is legally blind, ~6 months S/P left femoral neck fx & hemiarthroplasty, complicated by a dislocation and reduction ~4 days post-operatively. She is here today with her daughter. She says she is doing well and has been walking with a walker & working with PT. She says her pain is improving and now she has some pain only with prolonged sitting. She says this resolves when she begins walking. She continues to reside at [facility] Medical History Depression Hyperlipemia Hypertension Social History Household Members: None Housing: House Do you presently have visiting nurse or other home services: Yes (PT twice a week) Alcohol intake: never Patient Tobacco Use Status: Former Tobacco user Quit Date: 50 years ago Tobacco use type: Cigarette Advance Directives Date on File: 03/26/20 service: No Current occupational status: retired Review of Systems Const All systems reviewed & are unremarkable except as noted in HPI and below Physical Exam Const General: no acute distress and alert Orientation/consciousness: patient oriented x3 HEENT Head: Yes normocephalic and Yes atraumatic Eyes EOM: EOMs intact bilaterally Resp Effort & Inspection: normal respiratory effort and able to speak in complete sentences Cardio Jugular venous distension: no JVD Skin General skin exam: turgor normal Rashes: no rashes Neuro General: patient oriented x3 Extrem Other: Left Hip: Well-healed incision No pain with impingement testing No gait antalgia Psych Appearance: grossly normal Affect: normal affect Attitude: cooperative Results Reviewed Results Reviewed: I personally reviewed relevant radiographs. Satisfactory appearance of left hip hemiarthroplasty with no evidence of hardware complication or evidence of loosening Assessment & Plan Assessment & Plan (1) Status post hip hemiarthroplasty: Code(s): Z96.649 - Presence of unspecified artificial hip joint Plan: This is an 88 year old woman who presents S/P left hip hemiarthroplasty, DOS: 11/04/22, complicated by a fall, dislocation, and reduction of the hip, DOI: 11/08/22. She is doing well. She is able to ambulate using a walker, and has mild pain only with prolonged activity.. I recommend she continue to avoid bending abrubtly without knee bend and avoiding lifting activities. She will continue to use walker. May follow up as needed. Plan Scribed for Clifford Ruiz MD by Ehsan León, medical education specialist, on 04/27/23 at 10:45 AM, EST. Coding Level of Care Code Est Pt Level 3 (07185) Diagnoses Status post hip hemiarthroplasty Z96.649
== END 2023-04-27 11:38 | disposition home or self-care (01) ==
PROVIDERS: PCP Internal Medicine; Visit Provider Orthopaedic Surgery
DX: M25.552 Pain in left hip (principal); Z96.642 Presence of left artificial hip joint
CPT/HCPCS: 99213

== ENCOUNTER → 2023-04-27 10:32 | Outpatient (BNVA) | payer MEDICARE, SELFPAY | PROVIDERS: PCP Internal Medicine; Visit Provider Orthopaedic Surgery | DX: Z47.1 Aftercare following joint replacement surgery (principal); Z96.642 Presence of left artificial hip joint | CPT/HCPCS: 99212 ==

== ENCOUNTER 2023-08-25 17:08 | Inpatient (IN) | payer MEDICARE, SELFPAY ==
--- NOTE | ~2023-08-25 | US_ITS ---
EXAMINATION: US VENOUS WITH DOPPLER UPPER EXTREMITY, LEFT CLINICAL INFORMATION: Left upper extremity swelling after IV puncture COMPARISON: None available. TECHNIQUE: Ultrasound of the upper extremity is performed using compression sonography and color and pulse Doppler flow with assessment of augmentation of flow. There is also imaging and Doppler assessment of the jugular and subclavian veins. Spectral analysis with color-flow imaging is performed. FINDINGS: Respiratory variation, normal compression, and augmented flow are noted throughout the upper extremity including the axillary, brachial, cubital, and radial and ulnar veins. There is normal flow in the internal jugular and subclavian veins. There is no visible deep or superficial thrombophlebitis. 2 small cysts are present lateral to the mid cephalic vein measuring 4 mm in size each. There is no vascularity. On the dorsum of the hand there is a 3.6 x 1.1 x 4.2 cm heterogeneous hypoechoic mass present, suspected to be a hematoma. If the patient's symptoms progress, a followup ultrasound in 5 -7 days might be of value to exclude proximal propagation from a nonvisualized distal arm vein. US/US venous duplex UE LT IMPRESSION: No DVT demonstrated in the left upper extremity
--- NOTE | ~2023-08-25 | CT_ITS ---
EXAMINATION: CT ABDOMEN AND PELVIS WITH CONTRAST CLINICAL INFORMATION: Diarrhea, nausea. COMPARISON: Most recent CT abdomen/pelvis dated 10/20/2021. TECHNIQUE: Multidetector volumetric images were obtained from the superior aspect of the liver through the pubic symphysis following administration 85 mL of Omnipaque 350 intravenous contrast. Sagittal and coronal reformatted images were obtained on the technologist's workstation. Oral Contrast: No. This CT examination was performed using dose optimization techniques as appropriate, variously including the following: *Automated exposure control. *Adjustment of mA and/or kV according to patient size (this includes techniques or standardized protocols for targeted exams where dose is matched to indication/reason for exam; i.e. extremities or head). *Use of iterative reconstruction technique. DLP: 824 mGy-cm FINDINGS: LUNG BASES: The visualized lung bases are unremarkable. LIVER, GALLBLADDER, AND BILIARY TREE: The liver is normal in size, shape, and attenuation. No focal hepatic lesion or biliary ductal dilatation is present. The gallbladder is unremarkable with no evidence of radiopaque gallstones, gallbladder wall thickening, or obvious pericholecystic inflammatory changes. PANCREAS: Atrophic. No associated inflammatory change. SPLEEN: Unremarkable. ADRENAL GLANDS: Unremarkable. KIDNEYS AND URETERS: The kidneys are normal in size, shape, and attenuation. No hydronephrosis, hydroureter, or calculi seen. No perinephric stranding. BLADDER: Nondistended with a Guthrie catheter in place. GASTROINTESTINAL TRACT: There are a few scattered sigmoid diverticula. No bowel wall thickening or evidence of acute diverticulitis. No small or large bowel obstruction. Mild stool within the right hemicolon. Unremarkable appendix. PERITONEAL CAVITY: No intra-abdominal free air or free fluid. ABDOMINAL WALL: No significant abdominal wall hernia. LYMPH NODES: No significant lymphadenopathy. VASCULAR: No abdominal aortic dilatation or dissection. Atherosclerotic calcifications. PELVIC VISCERA: Redemonstration of a simple right adnexal cyst. Findings are similar when compared to prior examinations. No dedicated follow-up imaging recommended. OSSEOUS STRUCTURES: No acute osseous abnormality. Unremarkable left hip arthroplasty. CT/CT abdomen pelvis w IV con IMPRESSION: 1. Mild diverticulosis without evidence of acute diverticulitis. No small or large bowel obstruction. Unremarkable appendix. 2. No new intra-abdominal mass, lymphadenopathy, or ascites. 3. Additional chronic findings are unchanged. Fleischner guidelines were followed.
--- NOTE | 2023-08-25 17:15 | ED_ITS ---
HPI - Abdominal Pain General Chief Complaint: Nausea/Vomiting/Diarrhea Stated Complaint: Abdominal pain Time Seen by Provider: 08/25/23 17:15 Source: patient Mode of arrival: EMS Limitations: no limitations History of Present Illness HPI narrative: Patient is an 88-year-old female who presents emergency department via EMS for evaluation of nausea and feeling ?terrible? with her only symptomatic complaint of nausea. She reports sudden onset last night and has been constant since then. She does endorse that she has been able to eat and drink today without any vomiting. She denies any fever, chills, chest pain, shortness of breath, vomiting, abdominal pain, constipation, diarrhea, numbness or tingling of her extremities. When asked she does state that she has been experiencing intermittent dysuria. Related Data Home Medications Medication Instructions Recorded Confirmed betamethasone dipropionate 0.05 % 1 appl topical DAILY 10/31/22 10/31/22 topical ointment cholecalciferol (vitamin D3) 50 50 mcg PO DAILY 10/31/22 10/31/22 mcg (2,000 unit) capsule (Vitamin D3) lorazepam 1 mg tablet 1 mg PO TID 10/31/22 10/31/22 metoprolol succinate 50 mg 50 mg PO DAILY 10/31/22 10/31/22 tablet,extended release 24 hr simvastatin 10 mg tablet 10 mg PO BEDTIME 10/31/22 10/31/22 Previous Rx's Medication Instructions Recorded tamsulosin 0.4 mg capsule 0.4 mg PO DAILY #30 caps 11/04/22 Allergies Allergy/AdvReac Type Severity Reaction Status Date / Time buspirone [BUSPIRONE] Allergy Intermediate STOMACH Verified 08/25/23 21:09 UPSET citalopram [CITALOPRAM] Allergy Intermediate STOMACH Verified 08/25/23 21:09 UPSET paroxetine [PAROXETINE] Allergy Intermediate STOMACH Verified 08/25/23 21:09 UPSET trazodone [TRAZODONE] Allergy Intermediate STOMACH Verified 08/25/23 21:09 UPSET levofloxacin [From LEVAQUIN] Allergy Unknown DEPRESSION Verified 08/25/23 21:09 lactose Allergy Gastrointestinal Verified 08/25/23 21:09 Upset Review of Systems Review of Systems Yes all other systems are reviewed and are negative PMFSH Past Medical History Attestation statement: The following information was validated with the patient. Source: old records reviewed Medical History Depression Hyperlipemia Hypertension Social History Social History Household Members: None Housing: House Do you presently have visiting nurse or other home services: Yes (PT twice a week) Alcohol intake: never Patient Tobacco Use Status: Former Tobacco user Quit Date: 50 years ago Tobacco use type: Cigarette Smoked in Last 30 Days: No Use of substances other than those prescribed or required for medical reasons: No Advance Directives: No Advance Directives Information Provided: Yes Advance Directives Date on File: 03/26/20 service: No Current occupational status: retired Physical Exam ED Vital Signs: Vital Signs - 24 hr 08/25/23 17:25 08/25/23 19:27 08/25/23 19:36 Temperature 98.4 F 98.5 F Pulse Rate 83 91 Respiratory Rate 18 17 Blood Pressure 191/101 H 182/100 H 180/90 H Pulse Oximetry 97 96 Oxygen Delivery Method Room Air Room Air 08/25/23 23:25 08/26/23 02:15 Temperature 98.3 F 98.5 F Pulse Rate 91 93 Respiratory Rate 17 Blood Pressure 136/93 H 126/90 H Pulse Oximetry 96 95 Oxygen Delivery Method Room Air Room Air BMI result Body Mass Index 25.9 Appearance: Alert.?Oriented to person, place and time. No acute distress.?Normal affect. Eyes: Pupils equal, round and reactive to light.? ENT: Pharynx normal.?? Neck: Normal inspection.? Neck supple.?? CVS: Heart sounds normal. Normal heart rate and rhythm.? Pulses normal.?? Respiratory: No respiratory distress.? Lung sounds clear to auscultation bilaterally?? Abdomen: Soft and non-tender. Normoactive bowel sounds. No pulsatile mass.?? Skin: Skin warm and dry.? Normal skin color.? Extremities: No lower extremity edema.? Neuro: Moves all extremities spontaneously. Sensation intact bilaterally.No focal neuro deficits. Ambulates with normal steady gait. Course Reevaluation(s) Reevaluation #1: Received call from lab regarding critical sodium of 118, upon review of her chart she has had prior sodium levels as low as 133. After they looked into her medication history from pharmacy records, it does appear as though she was prescribed cefpodoxime on 08/21/2023 for ?UTI, patient is unable to tell me why this was prescribed. Additionally I see a new prescription for quetiapine 25 mg a total of 10 tablets for a 20 day supply it is unclear to me why this may have been started and she is unable to tell me why. I contacted the [facility], unfortunately there is no nursing staff available at this time of night. I was able to speak with the president, Grant, who is quite familiar with the patient and he does report to me that she has been experiencing a lot of diarrhea lately, in the on-call provider wanted her sent to the emergency department for evaluation of her nausea to rule out bowel obstruction or stomach bug , he reports that she has typically not confused or agitated at baseline, but does admit that lately she has been ?a little confused here and there?. Patient denies to me having diarrhea but she does admit to having a soft bowel movement earlier today. Time: 18:37 Reevaluation #2: Consulted with Nephrology; Dr. Ho, U/A with isotonuria, recommends normal saline at 70 mL/hour and recheck sodium in 2-3 hours, close monitoring of urine output. 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 Repeat sodium of 119, output of 1L urine. Spoke with Dr. Ho, who recommends continued normal saline at 70 mL/hour. Plan for serial monitoring of sodium levels, anticipate admission to medicine service once sodium level is appropriate, remains that no ICU beds are available at this time. Time: 23:57 Reevaluation #3: Patient signed out to ED attending Carolyn Tello pending repeat labs and evaluation. Time: 01:27 Additional Reevaluation(s): Repeat sodium 120 will admit patient to medical floor continue normal saline at rate of 70 mL/hour Medical Decision Making Medical Decision Making MDM Narrative: Patient is an 88-year-old female with past medical history of hyperlipidemia, hypertension who presents emergency department for evaluation nausea as per HPI. Abdominal examination is benign, no CVA tenderness. She has been tolerant of oral intake by her account without any vomiting throughout the day. Denies any history of chronic nausea, recent URI symptoms or known sick contacts.Will obtain CBC to evaluate for leukocytosis/ anemia, CMP and lipase to evaluate for abnormal electrolytes /abnormal renal function/ abnormal hepatic/biliary function, EKG and troponin to evaluate for ischemia/ACS. Viral testing and Urinalysis. We will try symptomatic management with Zofran IV. Differential Diagnosis Differential Diagnoses: The differential diagnosis associated with the presentation includes (Viral syndrome, cholecystitis, pancreatitis, gastritis, GERD) Admission/Observation Consideration of admission/observation: Escalation of care including admission/observation considered (See narrative above in course narrative for further detail) Lab Data MDM Lab Attestation statement: I reviewed the patient's lab results. (See course narrative for further detail) 08/25/23 17:35 08/26/23 02:13 Labs: Lab Results 08/25/23 08/25/23 08/25/23 Range/Units 17:35 18:44 18:46 WBC 15.5 H (4.8-10.8) X10*3/uL RBC 4.48 D (4.20-5.50) X10*6/uL Hgb 13.6 D (12.0-16.0) g/dl Hct 37.2 (37.0-47.0) % MCV 83.0 (80.0-98.0) fL MCH 30.4 (27.0-33.0) pg MCHC 36.6 H (31.0-35.0) g/dl RDW 12.5 (11.0-16.0) % Plt Count 285 D (160-400) X10*3/uL MPV 8.9 L (9.4-12.3) fL Immature Gran % (Auto) 0.6 H (0.0-0.4) % Neut % (Auto) 84.7 H (45-73) % Lymph % (Auto) 8.9 L (20-40) % [place] % (Auto) 5.4 (2-11) % Eos % (Auto) 0.1 (0-4) % Baso % (Auto) 0.3 (0-2) % Lymph # (Auto) 1.4 (1.2-4.9) X10*3/uL [place] # (Auto) 0.8 (0.1-1.2) X10*3/uL Eos # (Auto) 0.0 (0.0-0.4) X10*3/uL Baso # (Auto) 0.1 (0.0-0.2) X10*3/uL Abs Immat Gran (auto) 0.09 H (0.00-0.03) X10*3/uL Absolute Neuts (auto) 13.2 H (2.0-8.3) x10*3/uL Absolute Nucleated RBC 0.000 (0.0-0.012) X10*3/uL Nucleated RBC % (auto) 0.0 (0.0-0.2) /100WBC PT 10.7 L (11.1-13.3) SEC INR 0.9 (0.9-1.1) Sodium 118 L* (135-145) mmol/L Potassium 4.5 (3.3-5.1) mmol/L Chloride 91 L (96-108) mmol/L Carbon Dioxide 18 L (22-29) mmol/L Anion Gap 14 (12-20) BUN 11 (9-16) mg/dL Creatinine 0.67 (0.5-1.4) mg/dL Estim Creat Clear Calc 57.2 Estimated GFR > 60 Random Glucose 120 H (60-115) mg/dL Osmolality 249 L (281-305) mosm/kg Calcium 9.1 (8.4-10.2) mg/dL Magnesium 1.8 (1.6-2.6) mg/dL Total Bilirubin 1.1 H (0.0-1.0) mg/dL AST 23 (5-31) U/L ALT 21 (0-31) U/L Alkaline Phosphatase 87 (39-117) U/L Troponin I High Sens < 2.7 (<3.5-17.0) ng/L Total Protein 7.2 (6.5-8.0) g/dL Albumin 4.1 (3.5-5.0) g/dL Lipase 47 (8-78) U/L TSH 2.57 (0.32-4.0) uIU/mL Urine Color Yellow Urine Appearance Clear Urine pH 8.0 (5.0-9.0) Ur Specific [place] 1.010 (1.005-1.025) Urine Protein Negative (Neg-Trace) mg/dL Urine Glucose (UA) Negative (Negative) mg/dL Urine Ketones Trace (Negative) mg/dL Urine Blood Negative (Negative) Urine Nitrite Negative (Negative) Ur Leukocyte Esterase Trace H (Negative) Urine RBC 0-2 (0-2) /HPF Urine WBC 0-5 (0-5) /HPF Ur Squamous Epith Cells 0-2 (0-2) /HPF Urine Bacteria None Seen (None Seen) Hyaline Casts 0-2 (0-2) /LPF Urine Osmolality 365 L (373-1093) mosm/kg Ur Random Sodium 87.0 mmol/L Influenza Type A (PCR) NEGATIVE (Negative) Influenza Type B (PCR) NEGATIVE (Negative) RSV RNA Qual (PCR) NEGATIVE (Negative) SARS-CoV-2 RNA (RT-PCR) NEGATIVE (Negative) 08/25/23 08/26/23 Range/Units 22:28 02:13 WBC (4.8-10.8) X10*3/uL RBC (4.20-5.50) X10*6/uL Hgb (12.0-16.0) g/dl Hct (37.0-47.0) % MCV (80.0-98.0) fL MCH (27.0-33.0) pg MCHC (31.0-35.0) g/dl RDW (11.0-16.0) % Plt Count (160-400) X10*3/uL MPV (9.4-12.3) fL Immature Gran % (Auto) (0.0-0.4) % Neut % (Auto) (45-73) % Lymph % (Auto) (20-40) % [place] % (Auto) (2-11) % Eos % (Auto) (0-4) % Baso % (Auto) (0-2) % Lymph # (Auto) (1.2-4.9) X10*3/uL [place] # (Auto) (0.1-1.2) X10*3/uL Eos # (Auto) (0.0-0.4) X10*3/uL Baso # (Auto) (0.0-0.2) X10*3/uL Abs Immat Gran (auto) (0.00-0.03) X10*3/uL Absolute Neuts (auto) (2.0-8.3) x10*3/uL Absolute Nucleated RBC (0.0-0.012) X10*3/uL Nucleated RBC % (auto) (0.0-0.2) /100WBC PT (11.1-13.3) SEC INR (0.9-1.1) Sodium 119 L* 120 L* (135-145) mmol/L Potassium 4.2 4.1 (3.3-5.1) mmol/L Chloride 93 L 95 L (96-108) mmol/L Carbon Dioxide 18 L 19 L (22-29) mmol/L Anion Gap 12 10 L (12-20) BUN 10 10 (9-16) mg/dL Creatinine 0.66 0.62 (0.5-1.4) mg/dL Estim Creat Clear Calc 58.1 61.8 Estimated GFR > 60 > 60 Random Glucose 137 H 134 H (60-115) mg/dL Osmolality (281-305) mosm/kg Calcium 9.0 8.5 (8.4-10.2) mg/dL Magnesium (1.6-2.6) mg/dL Total Bilirubin (0.0-1.0) mg/dL AST (5-31) U/L ALT (0-31) U/L Alkaline Phosphatase (39-117) U/L Troponin I High Sens (<3.5-17.0) ng/L Total Protein (6.5-8.0) g/dL Albumin (3.5-5.0) g/dL Lipase (8-78) U/L TSH (0.32-4.0) uIU/mL Urine Color Urine Appearance Urine pH (5.0-9.0) Ur Specific [place] (1.005-1.025) Urine Protein (Neg-Trace) mg/dL Urine Glucose (UA) (Negative) mg/dL Urine Ketones (Negative) mg/dL Urine Blood (Negative) Urine Nitrite (Negative) Ur Leukocyte Esterase (Negative) Urine RBC (0-2) /HPF Urine WBC (0-5) /HPF Ur Squamous Epith Cells (0-2) /HPF Urine Bacteria (None Seen) Hyaline Casts (0-2) /LPF Urine Osmolality (373-1093) mosm/kg Ur Random Sodium mmol/L Influenza Type A (PCR) (Negative) Influenza Type B (PCR) (Negative) RSV RNA Qual (PCR) (Negative) SARS-CoV-2 RNA (RT-PCR) (Negative) Independent Interpretation I performed an independent interpretation of an: EKG Interpretation: Rate: 83 Rhythm:? Normal sinus rhythm [place]:? Normal Normal P waves.? Normal EMILIANO.?? Normal QRS complex.?? ST T wave :??No ST elevation, no ST depression, no T-wave inversion, Q-waves inferiorly qTC: 434 The study has been interpreted contemporaneously by me. Radiology Impression Discussion of test interpretation with radiology: I have reviewed the radiologist's reading. Radiologist Impression: CT/CT abdomen pelvis w IV con IMPRESSION: 1. Mild diverticulosis without evidence of acute diverticulitis. No small or large bowel obstruction. Unremarkable appendix. 2. No new intra-abdominal mass, lymphadenopathy, or ascites. 3. Additional chronic findings are unchanged. Independent Historian Clinical information obtained from an independent historian. History obtained from or confirmed by: EMS External Record Review External record reviewed: Outpatient record Medications Administered Generic Name Dose Route Start Last Admin Trade Name Freq PRN Reason Stop Dose Admin Sodium Chloride 1,000 mls @ 70 mls/hr 08/25/23 19:30 08/25/23 19:34 Ns IVCONT 70 mls/hr .[id number] [id number] Administration Discontinued Medications Generic Name Dose Route Start Last Admin Trade Name Freq PRN Reason Stop Dose Admin Iohexol 100 ml 08/25/23 21:05 08/25/23 21:05 Iohexol 350 Mg/Ml 100 Ml Infus..Btl IV 08/25/23 21:06 85 ml ONCE ONE Administration Lidocaine HCl 10 ml 08/25/23 20:41 08/25/23 21:03 Lidocaine Hcl 2 % Urojet 10 Ml Jel.Pf.July TOPICAL 08/25/23 20:42 10 ml ONCE ONE Administration Metoclopramide HCl 10 mg 08/25/23 19:40 08/25/23 20:11 Metoclopramide Hcl 10 Mg/2 Ml Vial IVPUSH 08/25/23 19:41 10 mg ONCE ONE Administration Ondansetron HCl 4 mg 08/25/23 17:25 08/25/23 17:39 Ondansetron Hcl 4 Mg/2 Ml Vial IVPUSH 08/25/23 17:26 4 mg ONCE ONE Administration Critical Care Time Critical Care Time Critical Care Time: Yes Total Critical Care Time: 60 Attestation: I personally attest to this critical care time spent taking care of the patient exclusive of all other billable procedures was approximately 60 minutes including initial evaluation of patient, ordering tests, EKG interpretation, medical consultation, documentation, re-evaluation. Discharge Plan Discharge Clinical Impression: Acute hyponatremia Patient Disposition: Still a Patient Prescriptions: No Action metoprolol succinate 50 mg tablet extended release 24 hr 50 mg PO DAILY simvastatin 10 mg tablet 10 mg PO BEDTIME lorazepam 1 mg tablet 1 mg PO TID betamethasone dipropionate 0.05 % Ointment 1 appl TOPICAL DAILY Rx Instructions: FOR AROUND URETHRA cholecalciferol (vitamin D3) [Vitamin D3] 50 mcg (2,000 unit) Capsule 50 mcg PO DAILY tamsulosin 0.4 mg Capsule 0.4 mg PO DAILY Qty: 30 0RF
[2023-08-25 17:19] VITALS: BP 170/90; PULSE 74; O2SAT 97
--- NOTE | 2023-08-25 17:24 | ECG_ITS ---
Test Reason : NAUSEA/VOMIT Blood Pressure : / mmHG Vent. 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
[2023-08-25 17:25] VITALS: BP 191/101; PULSE 83; RESP 18; TEMP 36.9; O2SAT 97; BMI 25.9
[2023-08-25 17:39] LABS: MANUAL DIFF FLAG NO
[2023-08-25] MEDS: ondansetron HCL 4 MG/2 ML VIAL IVPUSH (17:39)
[2023-08-25 17:43] LABS: Basophils Absolute Auto 0.1 X10*3/uL (0.0-0.2); Basophils Percent Auto 0.3 % (0-2); Eosinophils Percent Auto 0.1 % (0-4); Hematocrit 37.2 % (37.0-47.0); Hemoglobin 13.6 g/dl (12.0-16.0); Imm Gran Abs Auto 0.09 X10*3/uL (0.00-0.03); Imm Gran Pct Auto 0.6 % (0.0-0.4); Lymphocytes Absolute Auto 1.4 X10*3/uL (1.2-4.9); Lymphocytes Percent Auto 8.9 % (20-40); Mean Corpuscular HGB Conc 36.6 g/dl (31.0-35.0); Mean Corpuscular Hemoglobin 30.4 pg (27.0-33.0); Mean Platelet Volume 8.9 fL (9.4-12.3); Monocytes Absolute Auto 0.8 X10*3/uL (0.1-1.2); Monocytes Percent Auto 5.4 % (2-11); Neutrophils Absolute Auto 13.2 x10*3/uL (2.0-8.3); Neutrophils Percent Auto 84.7 % (45-73); Platelet Count 285 X10*3/uL (160-400); Red Blood Count 4.48 X10*6/uL (4.20-5.50); Red Cell Distribution Width 12.5 % (11.0-16.0); White Blood Count 15.5 X10*3/uL (4.8-10.8)
[2023-08-25 17:47] LABS: INTERNATIONAL NORM RATIO 0.9 (0.9-1.1); Prothrombin Time 10.7 SEC (11.1-13.3)
[2023-08-25 18:07] LABS: Troponin-I High Sensitivity < 2.7 ng/L (<3.5-17.0)
[2023-08-25 18:23] LABS: Alanine Aminotransferase 21 U/L (0-31); Albumin Level 4.1 g/dL (3.5-5.0); Alkaline Phosphatase 87 U/L (39-117); Anion Gap 14 (12-20); Aspartate Amino Transferase 23 U/L (5-31); Bilirubin Total 1.1 mg/dL (0.0-1.0); Blood Urea Nitrogen 11 mg/dL (9-16); Calcium 9.1 mg/dL (8.4-10.2); Carbon Dioxide 18 mmol/L (22-29); Chloride 91 mmol/L (96-108); Creatinine Clr Calc Pharmacy 57.2; Estimated Glomerular Filt Rate > 60; Glucose Random 120 mg/dL (60-115); Lipase 47 U/L (8-78); Magnesium 1.8 mg/dL (1.6-2.6); Potassium 4.5 mmol/L (3.3-5.1); Sodium 118 mmol/L (135-145); Total Protein 7.2 g/dL (6.5-8.0)
[2023-08-25 18:54] LABS: Appearance Urine Clear; Color Urine Yellow; Glucose Urine UA Negative (Negative); Leukocyte Esterase Urine Trace (Negative); Nitrite Urine Negative (Negative); UMIC TRIGGER UACC YES; Urine Blood Negative (Negative); Urine Ketones Trace mg/dL (Negative); Urine Protein Negative (Neg-Trace)
[2023-08-25 18:59] LABS: Bacteria Urine None Seen (None Seen); Hyaline Casts Urine 0-2 /LPF (0-2); RBC Urine 0-2 /HPF (0-2); Squamous Epithelial Cell Urine 0-2 /HPF (0-2); WBC Urine 0-5 /HPF (0-5)
[2023-08-25 19:17] LABS: Osmolality, Serum 249 mosm/kg (281-305)
[2023-08-25 19:27] VITALS: BP 182/100; PULSE 91; RESP 17; TEMP 36.9; O2SAT 96
[2023-08-25 19:33] LABS: Osmolality Urine 365 mosm/kg (373-1093)
[2023-08-25] MEDS: 0.9 % Sodium Chloride 1,000 ML 70 ML IVCONT (19:34)
[2023-08-25 19:36] VITALS: BP 180/90
--- NOTE | 2023-08-25 19:36 | PC.NURSE ---
ivf initiated. seizure precautions in place. pt axox4 nad at this time. nsr on monitor. resp even and unlabored. call kaur within reach.
[2023-08-25 19:38] LABS: Influenza A PCR NEGATIVE (Negative); Influenza B PCR NEGATIVE (Negative); Resp Syncy Virus RNA Qual PCR NEGATIVE (Negative); SARS COV2 PCR INHOUSE NEGATIVE (Negative)
[2023-08-25 20:00] LABS: TSH reflex Free T4 2.57 uIU/mL (0.32-4.0)
[2023-08-25] MEDS: Metoclopramide HCl 10 MG/2 ML VIAL IVPUSH (20:11)
[2023-08-25] MEDS: Lidocaine HCl 2 % Urojet 10 ML JEL.PF.APP TOPICAL (21:03)
--- NOTE | 2023-08-25 21:04 | PC.NURSE ---
pt had incontinent episode in bed while attempting to get up to commode purewick provided however per [employer]NA GRAIN MIXER manzano needed to follow strict i&o. 18fr manzano inserted pt tolerated well. prior to 100mL urine via manzano catheter. pt to ct scan at this time.
[2023-08-25] MEDS: iohexoL 350 MG/ML 100 ML INFUS..BTL IV (21:05)
--- NOTE | 2023-08-25 21:07 | PC.NURSE ---
late entry last IV infiltrated L. wrist. removed and icepack placed Grant SENIOR COMMISSARY AGENT aware. new iv placed R. AC infusing ivf.
[2023-08-25 22:51] LABS: Anion Gap 12 (12-20); Blood Urea Nitrogen 10 mg/dL (9-16); Carbon Dioxide 18 mmol/L (22-29); Chloride 93 mmol/L (96-108); Creatinine Clr Calc Pharmacy 58.1; Estimated Glomerular Filt Rate > 60; Glucose Random 137 mg/dL (60-115); Potassium 4.2 mmol/L (3.3-5.1); Sodium 119 mmol/L (135-145)
--- NOTE | 2023-08-25 22:56 | PC.NURSE ---
pt has appeared to increase in restlessness. pt verbalizes feeling slightly confused at times however axox4. resp even and unlabored. verbal reassurance provided pt resting comfortably. video monitor in room charge master specialist notified of possible need for sitter to provide companionship to pt as appears to be comfortable when 2nd person at bedside with pt. ivf infusing. awaiting bmp repeat draw. Grant TITLE OFFICER previously notified of patient appearing anxious/restless; to hold off on medications at this time to avoid worsening confusion sx.
[2023-08-25 23:25] VITALS: BP 136/93; PULSE 91; RESP 17; TEMP 36.8; O2SAT 96
[2023-08-26 02:15] VITALS: BP 126/90; PULSE 93; TEMP 36.9; O2SAT 95
[2023-08-26 02:33] LABS: Anion Gap 10 (12-20); Blood Urea Nitrogen 10 mg/dL (9-16); Calcium 8.5 mg/dL (8.4-10.2); Carbon Dioxide 19 mmol/L (22-29); Chloride 95 mmol/L (96-108); Creatinine Clr Calc Pharmacy 61.8; Estimated Glomerular Filt Rate > 60; Glucose Random 134 mg/dL (60-115); Potassium 4.1 mmol/L (3.3-5.1); Sodium 120 mmol/L (135-145)
--- NOTE | 2023-08-26 03:34 | P.HPHOSP_ITS ---
History of Present Illness Date of Service: 08/26/23 Attending physician on admission: Jerzy Jane Chief Complaint: Nausea Agatha Garza is 88 years old woman with past medical history significant for essential hypertension, diarrhea and hyperlipidemia was brought to the emergency department for nausea evaluation. Patient stated that she has been feeling nauseous since yesterday. Denies associated vomiting or abdominal pain. She did reported episodes of diarrhea. She denied any visual problems, headache, fever or chills. Seizure has not been reported. She denied any acute cardiopulmonary symptoms. She stated that she was recently taken antibiotics for presumed UTI and mentioned that sometimes she has urinary symptoms that she attributes to lichen. It seems like this antibiotic is Cefpodoxime. According to nursing the paperwork patient takes Seroquel at nighttime. When I asked the patient specifically about this medication she said that she take this medication twice daily for anxiety; however it has been prescribed to take at bedtime (12.5 mg). Patient stated that she is very thirsty. She has not taking diuretics. She uses MiraLax daily. It is unclear to me if the patient has been drinking water excessively. In the ED, she was found to have hypertension, however her most recent blood pressure is 126/90. Blood workup is remarkable for hyponatremia of 118 (at 5:35 PM). Serum and urine osmolality are low (249 and 365, respectively). Random urinary Na + is 87. Bicarb is 19. Urinalysis showed no abuse findings of UTI. There are traces of ketones. Viral testing for COVID-19, influenza and RSV is negative. TSH is normal. Abdominal pelvis CT scan showed mild diverticulosis without findings of acute diverticulitis and no SBO. According to ED notes home energy rater on-call was contacted and recommended to start NS at 70 mL/hr. ED tx: Zofran 4 mg IV, Reglan 10 mg IV and lidocaine patch to person. NS 70 ml/hr. Review of Systems 2 Review of Systems: Limited due to patient's confusion. [facility] Medical History Depression Hyperlipemia Hypertension Social History Household Members: None Housing: House Do you presently have visiting nurse or other home services: Yes (PT twice a week) Alcohol intake: never Patient Tobacco Use Status: Former Tobacco user Quit Date: 50 years ago Tobacco use type: Cigarette Smoked in Last 30 Days: No Use of substances other than those prescribed or required for medical reasons: No Advance Directives: No Advance Directives Information Provided: Yes Advance Directives Date on File: 03/26/20 service: No Current occupational status: retired Meds Allergies Allergy/AdvReac Type Severity Reaction Status Date / Time buspirone [BUSPIRONE] Allergy Intermediate STOMACH Verified 08/25/23 21:09 UPSET citalopram [CITALOPRAM] Allergy Intermediate STOMACH Verified 08/25/23 21:09 UPSET paroxetine [PAROXETINE] Allergy Intermediate STOMACH Verified 08/25/23 21:09 UPSET trazodone [TRAZODONE] Allergy Intermediate STOMACH Verified 08/25/23 21:09 UPSET levofloxacin [From LEVAQUIN] Allergy Unknown DEPRESSION Verified 08/25/23 21:09 lactose Allergy Gastrointestinal Verified 08/25/23 21:09 Upset Active Medications: Current Medications Acetaminophen (Acetaminophen 325 Mg Tablet) 650 mg PO Q6H PRN PRN Reason: Pain, Mild (Pain Scale 1-3) Heparin Sodium (Porcine) (Heparin Sodium,Porcine 5,000 Unit/Ml Vial) 5,000 unit SUBCUT Q12H [facility] Sodium Chloride (Ns) 1,000 mls @ 70 mls/hr IVCONT .[id number] [facility] Last Admin: 08/25/23 19:34 Dose: 70 mls/hr Sodium Chloride (0.9 % Sodium Chloride Flush 3 Ml Syringe) 3 ml IVFLUSH QSHIFT [facility] Home Medications Medication Instructions Recorded Confirmed Last Taken Type betamethasone dipropionate 0.05 % 1 appl topical DAILY 10/31/22 10/31/22 Unknown History topical ointment cholecalciferol (vitamin D3) 50 50 mcg PO DAILY 10/31/22 10/31/22 Unknown History mcg (2,000 unit) capsule (Vitamin D3) lorazepam 1 mg tablet 1 mg PO TID 10/31/22 10/31/22 Unknown History metoprolol succinate 50 mg 50 mg PO DAILY 10/31/22 08/26/23 Unknown History tablet,extended release 24 hr simvastatin 10 mg tablet 10 mg PO BEDTIME 10/31/22 08/26/23 Unknown History lorazepam 0.5 mg tablet 0.5 mg PO BID 08/26/23 08/26/23 Unknown History oxycodone 5 mg tablet 5 mg PO BID 08/26/23 08/26/23 Unknown History quetiapine 25 mg tablet 12.5 mg PO BEDTIME 08/26/23 08/26/23 Unknown History Physical Exam 2 Vital Signs and Narrative: Vital Signs: Last Vital Signs Temp 98.5 F 08/26/23 02:15 Pulse 93 08/26/23 02:15 Resp 17 08/25/23 23:25 BP 126/90 H 08/26/23 02:15 Pulse Ox 95 08/26/23 02:15 O2 Del Method Room Air 08/26/23 02:15 BMI result Body Mass Index 25.9 Constitutional - Awake and Alert, No apparent distress. Confused at times. HEENT - PERRLA, EOMI. Normal sclerae. Very dry oral mucosa. Heart - S1S2, RRR, No edema Lungs - Normal lung expansion, Normal respiratory effort, No respiratory distress, CTA bilaterally Gastrointestinal - NT / ND; +BS; No rebound or guarding - No CVA tenderness Extremities - No edema Skin - Warm/Dry Neurological - Alert & oriented x3. Confused at time. No focal weakness grossly noted. Psychological - Depressed affect Results Labs 08/25/23 17:35 08/26/23 02:13 Labs: Laboratory Results - last 24 hr 08/25/23 08/25/23 08/25/23 17:35 18:44 18:46 MCV 83.0 MCH 30.4 MCHC 36.6 H RDW 12.5 Plt Count 285 D MPV 8.9 L Immature Gran % (Auto) 0.6 H Neut % (Auto) 84.7 H Lymph % (Auto) 8.9 L Bledsoe % (Auto) 5.4 Eos % (Auto) 0.1 Baso % (Auto) 0.3 Lymph # (Auto) 1.4 Bledsoe # (Auto) 0.8 Eos # (Auto) 0.0 Baso # (Auto) 0.1 Abs Immat Gran (auto) 0.09 H Absolute Neuts (auto) 13.2 H Absolute Nucleated RBC 0.000 Nucleated RBC % (auto) 0.0 PT 10.7 L INR 0.9 Anion Gap 14 Estim Creat Clear Calc 57.2 Estimated GFR > 60 Random Glucose 120 H Osmolality 249 L Calcium 9.1 Magnesium 1.8 Total Bilirubin 1.1 H AST 23 ALT 21 Alkaline Phosphatase 87 Troponin I High Sens < 2.7 Total Protein 7.2 Albumin 4.1 Lipase 47 TSH 2.57 Urine Color Yellow Urine Appearance Clear Urine pH 8.0 Ur Specific Morrill 1.010 Urine Protein Negative Urine Glucose (UA) Negative Urine Ketones Trace Urine Blood Negative Urine Nitrite Negative Ur Leukocyte Esterase Trace H Urine RBC 0-2 Urine WBC 0-5 Ur Squamous Epith Cells 0-2 Urine Bacteria None Seen Hyaline Casts 0-2 Urine Osmolality 365 L Ur Random Sodium 87.0 Influenza Type A (PCR) NEGATIVE Influenza Type B (PCR) NEGATIVE RSV RNA Qual (PCR) NEGATIVE SARS-CoV-2 RNA (RT-PCR) NEGATIVE 08/25/23 08/26/23 22:28 02:13 MCV MCH MCHC RDW Plt Count MPV Immature Gran % (Auto) Neut % (Auto) Lymph % (Auto) Bledsoe % (Auto) Eos % (Auto) Baso % (Auto) Lymph # (Auto) Bledsoe # (Auto) Eos # (Auto) Baso # (Auto) Abs Immat Gran (auto) Absolute Neuts (auto) Absolute Nucleated RBC Nucleated RBC % (auto) PT INR Anion Gap 12 10 L Estim Creat Clear Calc 58.1 61.8 Estimated GFR > 60 > 60 Random Glucose 137 H 134 H Osmolality Calcium 9.0 8.5 Magnesium Total Bilirubin AST ALT Alkaline Phosphatase Troponin I High Sens Total Protein Albumin Lipase TSH Urine Color Urine Appearance Urine pH Ur Specific [place]rill Urine Protein Urine Glucose (UA) Urine Ketones Urine Blood Urine Nitrite Ur Leukocyte Esterase Urine RBC Urine WBC Ur Squamous Epith Cells Urine Bacteria Hyaline Casts Urine Osmolality Ur Random Sodium Influenza Type A (PCR) Influenza Type B (PCR) RSV RNA Qual (PCR) SARS-CoV-2 RNA (RT-PCR) ECG Attestation: I personally reviewed and interpreted this ECG as follows: (Normal sinus rhythm. 83 bpm. Q-wave inferior leads. No acute ischemic changes.) Imaging Radiologist's Impressions: Impressions Abdomen/Pelvis CT 08/25/23 21:11 IMPRESSION: 1. Mild diverticulosis without evidence of acute diverticulitis. No small or large bowel obstruction. Unremarkable appendix. 2. No new intra-abdominal mass, lymphadenopathy, or ascites. 3. Additional chronic findings are unchanged. Fleischner guidelines were followed. Assessment and Plan (1) Acute hyponatremia: Status: Acute (2) Diarrhea: Qualifiers: Diarrhea type: unspecified type Qualified Code(s): R19.7 - Diarrhea, unspecified Status: Acute Plan Agatha Garza is 88 years old woman admitted with: * Hyponatremia, acute. (Low urine and plasma osm, urine Na+ 87). 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 Admit to hospitalist service. Continue NS to run at 70 mL/hr. Continue to monitor sodium level every 4 hours. Recheck plasma urine osmolality + urine sodium. Nephrology consult. * Diarrhea, recent use of antibiotics. Patient is taking Lactaid. Unclear if she has hx of gluten or lactose intolerance. Check C diff (however, no significant leukocytosis or colitis finding on CT scan). Hold MiraLax. Lactose and gluten free diet. * Hyperlipidemia. Continue statin. * Essential hypertension. Continue metoprolol. * Anxiety. Continue lorazepam as needed. * History of hip fracture. Oxycodone as needed for pain. DVT prophylaxis: Heparin subcut Code status: DNR/DNI (MOLST form). Also do not use non-invasive ventilator, no artificial nutrition. Dialysis undecided. Use artificial hydration. Patient will need hospitalization for at least 2 midnights for acute hyponatremia treatment with close monitoring of sodium level, gentle IV fluids and evaluation by subspecialty. Quality Stroke Does the patient have a stroke diagnosis?: No VTE Prior VTE?: No VTE Risk Level:: Medical - moderate - high VTE Device Contraindication: Treatment Not Indicated VTE Drug Contraindication: N/A - Med Ordered
--- NOTE | 2023-08-26 04:39 | PC.NURSE ---
care assumed of patient at approx 3am. she is resting comfortable in bed at this time. admitting MD is at bedside. no apparent distress at this time. call kaur within reach. will continue to monitor.
[2023-08-26 05:30] LABS: MANUAL DIFF FLAG NO
[2023-08-26 05:31] LABS: Basophils Percent Auto 0.2 % (0-2); Eosinophils Percent Auto 0.1 % (0-4); Hematocrit 34.5 % (37.0-47.0); Hemoglobin 12.6 g/dl (12.0-16.0); Imm Gran Abs Auto 0.06 X10*3/uL (0.00-0.03); Imm Gran Pct Auto 0.4 % (0.0-0.4); Lymphocytes Absolute Auto 1.3 X10*3/uL (1.2-4.9); Lymphocytes Percent Auto 9.7 % (20-40); Mean Corpuscular HGB Conc 36.5 g/dl (31.0-35.0); Mean Corpuscular Hemoglobin 30.4 pg (27.0-33.0); Mean Corpuscular Volume 83.3 fL (80.0-98.0); Mean Platelet Volume 9.4 fL (9.4-12.3); Monocytes Absolute Auto 0.9 X10*3/uL (0.1-1.2); Monocytes Percent Auto 6.5 % (2-11); Neutrophils Absolute Auto 11.3 x10*3/uL (2.0-8.3); Neutrophils Percent Auto 83.1 % (45-73); Platelet Count 263 X10*3/uL (160-400); Red Blood Count 4.14 X10*6/uL (4.20-5.50); Red Cell Distribution Width 12.6 % (11.0-16.0); White Blood Count 13.6 X10*3/uL (4.8-10.8)
[2023-08-26 05:43] LABS: Anion Gap 11 (12-20); Blood Urea Nitrogen 10 mg/dL (9-16); Calcium 8.5 mg/dL (8.4-10.2); Carbon Dioxide 19 mmol/L (22-29); Chloride 95 mmol/L (96-108); Creatinine Clr Calc Pharmacy 61.8; Estimated Glomerular Filt Rate > 60; Glucose Random 125 mg/dL (60-115); Potassium 4.1 mmol/L (3.3-5.1); Sodium 121 mmol/L (135-145)
[2023-08-26 05:51] VITALS: BP 133/83; PULSE 87; RESP 17; TEMP 36.5; O2SAT 94
--- NOTE | 2023-08-26 09:12 | P.PNIM_ITS ---
Subjective Subjective Date of Service: 08/26/23 Interval History: Seen and evaluated this morning confused about time and place Na improved to 121 no other events Review of Systems Review of Systems: Yes all other systems are reviewed and are negative Physical Exam 2 Vital Signs: Vital Signs: Last Vital Signs Temp 97.7 F 08/26/23 05:51 Pulse 87 08/26/23 05:51 Resp 17 08/26/23 05:51 BP 133/83 08/26/23 05:51 Pulse Ox 94 08/26/23 05:51 O2 Del Method Room Air 08/26/23 05:51 BMI result Body Mass Index 25.9 Const: Other: Constitutional : Awake, interactive, not in distress Neck : Normal inspection, Supple Cardiovascular : RRR, no JVP, no lower extremity edema Respiratory : good bilateral air entry, no crackles, wheezes or rhonchi Gastrointestinal: soft, lax, Normal bowel sounds, Non tender Skin : Warm, Dry Neurological : Alert & oriented to self only, No focal deficit Objective Data Active Medications Acetaminophen (Acetaminophen 325 Mg Tablet) 650 mg PO Q6H PRN PRN Reason: Pain, Mild (Pain Scale 1-3) Atorvastatin Calcium (Atorvastatin Calcium 10 Mg Tablet) 10 mg PO BEDTIME [facility] Heparin Sodium (Porcine) (Heparin Sodium,Porcine 5,000 Unit/Ml Vial) 5,000 unit SUBCUT Q12H [facility] Lorazepam (Lorazepam 0.5 Mg Tablet) 0.5 mg PO BID PRN PRN Reason: Anxiety Metoprolol Succinate (Metoprolol Succinate Er 50 Mg Tab.Er.24h) 50 mg PO DAILY [facility]; Protocol Ondansetron HCl (Ondansetron Hcl 4 Mg/2 Ml Vial) 4 mg IVPUSH Q6H PRN PRN Reason: Nausea and Vomiting Oxycodone HCl (Oxycodone Hcl Immed Release 5 Mg Tablet) 5 mg PO BID PRN PRN Reason: Pain, Severe (Pain Scale 7-10) Quetiapine Fumarate (Quetiapine Fumarate 25 Mg Tablet) 12.5 mg PO BEDTIME [facility] Sodium Chloride (0.9 % Sodium Chloride Flush 3 Ml Syringe) 3 ml IVFLUSH QSHIFT [facility] Last Admin: 08/26/23 07:41 Dose: Not Given Documented By: CHONG Non-Admin Reason: Med Not Available Sodium Chloride (Sodium Chloride Tab 1 Gm Tablet) 2 gm PO BID [facility] Labs 08/26/23 05:03 08/26/23 05:03 Labs: Laboratory Results - last 24 hr 08/25/23 08/25/23 08/25/23 17:35 18:44 18:46 MCV 83.0 MCH 30.4 MCHC 36.6 H RDW 12.5 Plt Count 285 D MPV 8.9 L Immature Gran % (Auto) 0.6 H Neut % (Auto) 84.7 H Lymph % (Auto) 8.9 L Rhea % (Auto) 5.4 Eos % (Auto) 0.1 Baso % (Auto) 0.3 Lymph # (Auto) 1.4 Rhea # (Auto) 0.8 Eos # (Auto) 0.0 Baso # (Auto) 0.1 Abs Immat Gran (auto) 0.09 H Absolute Neuts (auto) 13.2 H Absolute Nucleated RBC 0.000 Nucleated RBC % (auto) 0.0 PT 10.7 L INR 0.9 Anion Gap 14 Estim Creat Clear Calc 57.2 Estimated GFR > 60 Random Glucose 120 H Osmolality 249 L Calcium 9.1 Magnesium 1.8 Total Bilirubin 1.1 H AST 23 ALT 21 Alkaline Phosphatase 87 Troponin I High Sens < 2.7 Total Protein 7.2 Albumin 4.1 Lipase 47 TSH 2.57 Urine Color Yellow Urine Appearance Clear Urine pH 8.0 Ur Specific [place] 1.010 Urine Protein Negative Urine Glucose (UA) Negative Urine Ketones Trace Urine Blood Negative Urine Nitrite Negative Ur Leukocyte Esterase Trace H Urine RBC 0-2 Urine WBC 0-5 Ur Squamous Epith Cells 0-2 Urine Bacteria None Seen Hyaline Casts 0-2 Urine Osmolality 365 L Ur Random Sodium 87.0 Influenza Type A (PCR) NEGATIVE Influenza Type B (PCR) NEGATIVE RSV RNA Qual (PCR) NEGATIVE SARS-CoV-2 RNA (RT-PCR) NEGATIVE 08/25/23 08/26/23 08/26/23 22:28 02:13 05:03 MCV 83.3 MCH 30.4 MCHC 36.5 H RDW 12.6 Plt Count 263 MPV 9.4 Immature Gran % (Auto) 0.4 Neut % (Auto) 83.1 H Lymph % (Auto) 9.7 L Rhea % (Auto) 6.5 Eos % (Auto) 0.1 Baso % (Auto) 0.2 Lymph # (Auto) 1.3 Rhea # (Auto) 0.9 Eos # (Auto) 0.0 Baso # (Auto) 0.0 Abs Immat Gran (auto) 0.06 H Absolute Neuts (auto) 11.3 H Absolute Nucleated RBC 0.000 Nucleated RBC % (auto) 0.0 PT INR Anion Gap 12 10 L 11 L Estim Creat Clear Calc 58.1 61.8 61.8 Estimated GFR > 60 > 60 > 60 Random Glucose 137 H 134 H 125 H Osmolality Calcium 9.0 8.5 8.5 Magnesium Total Bilirubin AST ALT Alkaline Phosphatase Troponin I High Sens Total Protein Albumin Lipase TSH Urine Color Urine Appearance Urine pH Ur Specific [place]ano Urine Protein Urine Glucose (UA) Urine Ketones Urine Blood Urine Nitrite Ur Leukocyte Esterase Urine RBC Urine WBC Ur Squamous Epith Cells Urine Bacteria Hyaline Casts Urine Osmolality Ur Random Sodium Influenza Type A (PCR) Influenza Type B (PCR) RSV RNA Qual (PCR) SARS-CoV-2 RNA (RT-PCR) Assessment and Plan (1) Acute hyponatremia: Status: Acute (2) Diarrhea: Status: Acute Plan Agatha Garza is 88 years old woman admitted with: # Acute Hyponatremia w associated with metabolic acidosis and Metabolic encephalopathy Mentation improving Low urine and plasma osm, urine Na+ 87 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 start PO salt tablets Continue to monitor sodium level every 4 hours. Nephrology consult. # Diarrhea w recent use of antibiotics Unclear if she has hx of gluten or lactose intolerance. Check C diff Hold MiraLax. Lactose and gluten free diet. # Hyperlipidemia. \Continue statin. # Essential hypertension. Continue metoprolol. # Anxiety. Continue lorazepam as needed. # History of hip fracture. Oxycodone as needed for pain. DVT prophylaxis: Heparin subcut Code status: DNR/DNI (MOLST form). Also do not use non-invasive ventilator, no artificial nutrition. Dialysis undecided. Use artificial hydration. Patient will need hospitalization overnight for acute hyponatremia treatment with close monitoring of sodium level, and evaluation by subspecialty. Quality Stroke Does the patient have a stroke diagnosis?: No VTE Prior VTE?: No VTE Risk Level:: Medical - moderate - high VTE Device Contraindication: Treatment Not Indicated VTE Drug Contraindication: N/A - Med Ordered
[2023-08-26 09:51] VITALS: BP 153/76; PULSE 82; RESP 22; TEMP 36.8; O2SAT 96
[2023-08-26] MEDS: Metoprolol Succinate ER 50 MG TAB.ER.24H PO (09:52)
[2023-08-26] MEDS: Heparin Sodium,Porcine 5,000 UNIT/ML VIAL 5000 UNIT SUBCUT ×2 (09:54→20:21)
--- NOTE | 2023-08-26 10:06 | PC.NURSE ---
assumed care of pt at 0700. pt a&o x4, pleasant, calm, and cooperative. IV fluids stopped per DC order in aug. 20G IV in RAC patent. pt medicated per aug. t/w called pharmacy to request complete med rec on pt. pt with significantly swollen left hand with purple bruising. it was noted in previous RN note that pt had an IV infiltration. PA Abby aware. orders per [facility] Mora for ice, elevation, and compression. pt denies pain and offers no complaints dodie. call kaur within reach, rr even/unlabored. awaiting inpatient bed. plan of care ongoing.
[2023-08-26] MEDS: Sodium Chloride Tab 1 GM TABLET 2 GM PO ×2 (10:13→20:22)
[2023-08-26] MEDS: LORazepam 0.5 MG TABLET PO (10:13)
--- NOTE | 2023-08-26 10:25 | MHC.CM.PN ---
PT REPORTS SHE LIVES AT THE [facility] IN [place] SHE SAYS SHE IS INDEPENDENT WITH SELF CARE [facility] PROVIDES 3 MEALS A DAY AND HOUSEKEEPING PT USES A WALKER SHE SAYS SHE HAS A HCP NAMING HER DAUGHTER, MARILYN, HER AGENT COPY REQUESTED PT REPORTS HER PCP IS NOW NOEMI JOYCE, IT IS NO LONGER DR [facility] IMM DELIVERED DCP: RETURN TO THE [facility] PT MAY NEED SHUTTLE/CHAIR VAN, HER DAUGHTER IS IN [place] VM MESSAGE LEFT FOR MARILYN REQUESTING A RETURN CALL
[2023-08-26 10:50] LABS: Anion Gap 11 (12-20); Blood Urea Nitrogen 10 mg/dL (9-16); Calcium 8.8 mg/dL (8.4-10.2); Carbon Dioxide 18 mmol/L (22-29); Chloride 94 mmol/L (96-108); Creatinine Clr Calc Pharmacy 54.7; Estimated Glomerular Filt Rate > 60; Glucose Random 172 mg/dL (60-115); Sodium 119 mmol/L (135-145)
[2023-08-26 13:01] LABS: Osmolality, Serum 257 mosm/kg (281-305)
[2023-08-26] MEDS: Urea 15 GM POWDER PO (13:21)
--- NOTE | 2023-08-26 13:24 | P.CDIM_ITS ---
PROVIDER RESPONSE TEXT: To clarify, the appropriate diagnosis supported by the clinical indicators: Acute QUERY TEXT: PHYSICIAN'S DOCUMENTATION REQUEST Date of Query: 08/26/2023 10:34 AM EST Patient Name: Agatha Garza Admit Date: 08/26/2023 Dear Deonte Dyer, A review of the medical record indicates additional documentation may be needed. Please review below and update the documentation accordingly. Clinical Indicators: Per Hospitalist Progress Note 08/26/23: Acute Hyponatremia w associated with metabolic acidosis Clarify which of the following accurately represents the acuity of the Metabolic acidosis. Possible options might include: Acute Acute on chronic Compensated Chronic stable condition Remission Other (explain) Clinically unable to determine (explain) Thank you, Marlene Ferrell RN Use of terms such as suspected, likely, concern for, or probable (associated with a specific diagnosi s that is being evaluated, monitored, or treated as if it exists) are acceptable and can be coded in the inpatient se tting, when documented at the time of discharge. Please use your independent medical judgment in providing your response. THIS QUERY IS PART OF THE PERMANENT MEDICAL RECORD
[2023-08-26 13:41] LABS: Osmolality Urine 78 mosm/kg (373-1093)
[2023-08-26 13:47] LABS: Sodium Urine Random < 20.0 mmol/L
[2023-08-26 14:39] VITALS: BP 117/65; PULSE 86; RESP 24; TEMP 36.9; O2SAT 95
[2023-08-26 15:11] LABS: Anion Gap 12 (12-20); Blood Urea Nitrogen 30 mg/dL (9-16); Calcium 8.9 mg/dL (8.4-10.2); Carbon Dioxide 21 mmol/L (22-29); Chloride 97 mmol/L (96-108); Creatinine Clr Calc Pharmacy 53.2; Estimated Glomerular Filt Rate > 60; Glucose Random 153 mg/dL (60-115); Potassium 3.8 mmol/L (3.3-5.1); Sodium 126 mmol/L (135-145)
[2023-08-26 17:09] VITALS: BP 122/76; PULSE 94; RESP 24; O2SAT 95
--- NOTE | 2023-08-26 17:12 | PHA.MEDREC ---
Pharmacy Consult ? Medication Reconciliation Pharmacy has completed the medication reconciliation. Utilized list from facility and claim history. Ananth MalinD
[2023-08-26 18:42] LABS: Anion Gap 11 (12-20); Blood Urea Nitrogen 26 mg/dL (9-16); Calcium 8.9 mg/dL (8.4-10.2); Carbon Dioxide 20 mmol/L (22-29); Chloride 99 mmol/L (96-108); Creatinine Clr Calc Pharmacy 60.8; Estimated Glomerular Filt Rate > 60; Glucose Random 119 mg/dL (60-115); Sodium 126 mmol/L (135-145)
[2023-08-26 18:58] LABS: CDiff Gene PCR NEGATIVE (Negative)
--- NOTE | 2023-08-26 19:23 | PM.CNNEP ---
History of Present Illness Reason for Consult Consult date: 08/26/23 Chief Complaint Chief complaint: Hyponatremia History of Present Illness Narrative: Agatha is a 88 years old woman who was brought to the emergency department for nausea evaluation. She has been feeling nauseous for last couple of days prior to ER presentation . She denies associated vomiting or abdominal pain but had episodes of diarrhea. She denied any acute cardiopulmonary symptoms. She stated that she was recently taken antibiotics for presumed UTI. she takes Seroquel for anxiety. Patient stated that she is very thirsty. She had not been on any diuretics. Blood work was remarkable for hyponatremia of 118 (at 5:35 PM). Serum and urine osmolality are low (249 and 365, respectively). Random urinary Na + is 87. TSH is normal. Abdominal pelvis CT scan showed mild diverticulosis without findings of acute diverticulitis and no SBO. She was started on NS at 70 mL/hr and was admitted for further management. Nephrology has been consulted to assist in her clinical care during her current hospital stay Review of Systems Review of Systems Yes all other systems are reviewed and are negative PMFSH Past Medical History Medical History Depression Hyperlipemia Hypertension Social History Social History Household Members: None Housing: House Do you presently have visiting nurse or other home services: Yes (PT twice a week) Alcohol intake: never Patient Tobacco Use Status: Former Tobacco user Quit Date: 50 years ago Tobacco use type: Cigarette Smoked in Last 30 Days: No Use of substances other than those prescribed or required for medical reasons: No Advance Directives: No Advance Directives Information Provided: Yes Advance Directives Date on File: 03/26/20 service: No Current occupational status: retired Meds Allergies Allergy/AdvReac Type Severity Reaction Status Date / Time buspirone [BUSPIRONE] Allergy Intermediate STOMACH Verified 08/25/23 21:09 UPSET citalopram [CITALOPRAM] Allergy Intermediate STOMACH Verified 08/25/23 21:09 UPSET paroxetine [PAROXETINE] Allergy Intermediate STOMACH Verified 08/25/23 21:09 UPSET trazodone [TRAZODONE] Allergy Intermediate STOMACH Verified 08/25/23 21:09 UPSET levofloxacin [From LEVAQUIN] Allergy Unknown DEPRESSION Verified 08/25/23 21:09 lactose Allergy Gastrointestinal Verified 08/25/23 21:09 Upset Active Medications: Current Medications Acetaminophen (Acetaminophen 325 Mg Tablet) 650 mg PO Q6H PRN PRN Reason: Pain, Mild (Pain Scale 1-3) Al Hydroxide/Mg Hydroxide (Magnesium Hydrox/Alum Hydrox 30 Ml Oral.Susp) 30 ml PO Q6H PRN PRN Reason: heartburn Atorvastatin Calcium (Atorvastatin Calcium 10 Mg Tablet) 10 mg PO BEDTIME [facility] Heparin Sodium (Porcine) (Heparin Sodium,Porcine 5,000 Unit/Ml Vial) 5,000 unit SUBCUT Q12H [facility] Last Admin: 08/26/23 09:54 Dose: 5,000 unit Lorazepam (Lorazepam 0.5 Mg Tablet) 0.5 mg PO BID PRN PRN Reason: Anxiety Last Admin: 08/26/23 10:13 Dose: 0.5 mg Metoprolol Succinate (Metoprolol Succinate Er 50 Mg Tab.Er.24h) 50 mg PO DAILY [facility]; Protocol Last Admin: 08/26/23 09:52 Dose: 50 mg Ondansetron HCl (Ondansetron Hcl 4 Mg/2 Ml Vial) 4 mg IVPUSH Q6H PRN PRN Reason: Nausea and Vomiting Oxycodone HCl (Oxycodone Hcl Immed Release 5 Mg Tablet) 5 mg PO BID PRN PRN Reason: Pain, Severe (Pain Scale 7-10) Quetiapine Fumarate (Quetiapine Fumarate 25 Mg Tablet) 12.5 mg PO BEDTIME [facility] Sodium Chloride (0.9 % Sodium Chloride Flush 3 Ml Syringe) 3 ml IVFLUSH QSHIFT [facility] Last Admin: 08/26/23 15:28 Dose: Not Given Sodium Chloride (Sodium Chloride Tab 1 Gm Tablet) 2 gm PO BID [facility] Last Admin: 08/26/23 10:13 Dose: 2 gm Home Medications Medication Instructions Recorded Confirmed Last Taken Type cholecalciferol (vitamin D3) 50 50 mcg PO DAILY 10/31/22 08/26/23 Unknown History mcg (2,000 unit) capsule (Vitamin D3) metoprolol succinate 50 mg 50 mg PO DAILY 10/31/22 08/26/23 Unknown History tablet,extended release 24 hr cefpodoxime 100 mg tablet 100 mg PO BID 08/26/23 Unknown History clobetasol 0.05 % topical ointment 1 appl topical BID PRN Rash 08/26/23 08/26/23 Unknown History cyanocobalamin (vitamin B-12) 250 500 mcg PO DAILY 08/26/23 08/26/23 Unknown History mcg tablet lactase 9,000 unit tablet (Lactaid 9,000 unit PO TIDAC PRN Lactose 08/26/23 08/26/23 Unknown History Fast Act) Intolerance lorazepam 0.5 mg tablet 0.5 mg PO BID 08/26/23 08/26/23 Unknown History quetiapine 25 mg tablet 12.5 mg PO BEDTIME 08/26/23 08/26/23 Unknown History Physical Exam Vital Signs: Last Vital Signs Temp 98.5 F 08/26/23 14:39 Pulse 94 08/26/23 17:09 Resp 24 H 08/26/23 17:09 BP 122/76 08/26/23 17:09 Pulse Ox 95 08/26/23 17:09 O2 Del Method Room Air 08/26/23 17:09 BMI result Body Mass Index 25.9 Const General: comfortable and no acute distress HEENT Head: Yes normocephalic Mouth: Normal oral and palatal mucosa present Eyes EOM: EOMs intact bilaterally Neck Neck: Yes supple Resp Auscultation: clear to auscultation bilaterally Cardio Jugular venous distension: no JVD Rate: regular rate GI Palpation (GI): Soft to palpation Auscultation: normal bowel sounds General: Yes no CVA tenderness Back/Spine/Pelvis Back: no CVA tenderness Skin General skin exam: no rashes or lesions noted Neuro General: moves all extremities Extrem General: Yes no pedal edema Results Lab Results 08/26/23 05:03 08/26/23 18:24 Lab results: Chemistry 08/25/23 08/25/23 08/26/23 17:35 22:28 02:13 Sodium 118 L* 119 L* 120 L* Potassium 4.5 4.2 4.1 Carbon Dioxide 18 L 18 L 19 L BUN 11 10 10 Creatinine 0.67 0.66 0.62 Calcium 9.1 9.0 8.5 08/26/23 08/26/23 08/26/23 05:03 09:59 14:52 Sodium 121 L 119 L* 126 L Potassium 4.1 4.0 3.8 Carbon Dioxide 19 L 18 L 21 L BUN 10 10 30 H Creatinine 0.62 0.70 0.72 Calcium 8.5 8.8 8.9 08/26/23 18:24 Sodium 126 L Potassium 4.0 Carbon Dioxide 20 L BUN 26 H Creatinine 0.63 Calcium 8.9 Hematology 08/25/23 08/26/23 17:35 05:03 WBC 15.5 H 13.6 H Hgb 13.6 D 12.6 Plt Count 285 D 263 Urinalysis 08/25/23 18:46 Urine Color Yellow Urine Appearance Clear Urine pH 8.0 Ur Specific Paul 1.010 Urine Protein Negative Urine Glucose (UA) Negative Urine Ketones Trace Urine Blood Negative Urine Nitrite Negative Ur Leukocyte Esterase Trace H Urine RBC 0-2 Urine WBC 0-5 Ur Squamous Epith Cells 0-2 Hyaline Casts 0-2 Urine Studies 08/25/23 08/26/23 18:46 13:24 Urine Osmolality 365 L 78 L Assessment and Plan (1) Acute hyponatremia: Status: Acute Plan Hyponatremia likely multifactorial Likely has some excess ADH as well Was given some NS but D/Ronak now Started on NaCl tablets Na correction appropriate No indication for hypertonic saline/tolvaptan Could restrict PO free water C/W rest of current management Shall closely follow up Procedures Date of Service Date of Service: 08/26/23
[2023-08-26] MEDS: QUEtiapine Fumarate 25 MG TABLET 12.5 MG PO (20:21)
[2023-08-26] MEDS: Atorvastatin Calcium 10 MG TABLET PO (20:22)
[2023-08-26 20:30] VITALS: BP 126/76; PULSE 107; RESP 20; TEMP 36.7; O2SAT 98
--- NOTE | 2023-08-26 21:03 | PC.NURSE ---
Patient assisted with PM adls, repositioned in bed, given PM meds per Aug. resting quietly waiting for bed assignment at this time.
[2023-08-27] VITALS (7 sets, daily range): BP systolic 116–133; BP diastolic 68–80; PULSE 60–118; RESP 18–20; TEMP 35.9–36.7; O2SAT 95–100; BMI 25.1
--- NOTE | 2023-08-27 03:27 | PC.NURSE ---
Assumed care of pt. Pt lying on stretcher, sleeping during initial assessment. Awakened for repositioning. VSS, no acute distress at this time. Pendign admission bed availability
[2023-08-27 06:54] LABS: Anion Gap 8 (12-20); Blood Urea Nitrogen 18 mg/dL (9-16); Calcium 9.2 mg/dL (8.4-10.2); Carbon Dioxide 23 mmol/L (22-29); Chloride 104 mmol/L (96-108); Creatinine Clr Calc Pharmacy 60.8; Estimated Glomerular Filt Rate > 60; Glucose Random 105 mg/dL (60-115); Potassium 3.7 mmol/L (3.3-5.1); Sodium 131 mmol/L (135-145)
--- NOTE | 2023-08-27 07:18 | PC.NURSE ---
pt going to room 450 - nurse taking report is Carmen
[2023-08-27] MEDS: 0.9 % Sodium Chloride Flush 3 ML SYRINGE IVFLUSH (08:21)
--- NOTE | 2023-08-27 08:33 | HO.SKINPHOTO ---
Location: LEFT ARM Category: Stage: Length: Width: Depth: cm Location: Category: Stage: Length: Width: Depth: cm Location: Category: Stage: Length: Width: Depth: cm Location: Category: Stage: Length: Width: Depth: cm Location: Category: Stage: Length: Width: Depth: cm Location: LEFT ARM Category: Stage: Length: Width: Depth: cm
--- NOTE | 2023-08-27 09:13 | P.PNNP_ITS ---
Subjective Subjective Date of Service: 08/27/23 Interval history: events noted Physical Exam 2 Vital Signs: Vital Signs: Last Vital Signs Temp 98.0 F 08/27/23 03:32 Pulse 87 08/27/23 03:32 Resp 20 08/27/23 03:32 BP 116/74 08/27/23 03:32 Pulse Ox 96 08/27/23 03:32 O2 Del Method Room Air 08/27/23 03:32 BMI result Body Mass Index 25.9 Const: General: comfortable and no acute distress HEENT: Head: Yes normocephalic Mouth: Normal oral and palatal mucosa present Eyes: EOM: EOMs intact bilaterally Neck: Neck: Yes supple Resp: Auscultation: clear to auscultation bilaterally Cardio: Jugular venous distension: no JVD Rate: regular rate GI: Palpation (GI): Soft to palpation Auscultation: normal bowel sounds : General: Yes no CVA tenderness Back/Spine/Pelvis: Back: no CVA tenderness Skin: General skin exam: no rashes or lesions noted Neuro: General: moves all extremities Extrem: General: Yes no pedal edema Objective Data Labs 08/26/23 05:03 08/27/23 05:32 Labs: Laboratory Results - last 24 hr 08/26/23 08/26/23 08/26/23 09:59 11:16 13:24 Hold Purple Top Sodium 119 L* Potassium 4.0 Chloride 94 L Carbon Dioxide 18 L Anion Gap 11 L BUN 10 Creatinine 0.70 Estim Creat Clear Calc 54.7 Estimated GFR > 60 Random Glucose 172 H Osmolality 257 L Calcium 8.8 Urine Osmolality 78 L Ur Random Sodium < 20.0 C. difficile Tox B Gene 08/26/23 08/26/23 08/26/23 14:52 16:49 18:24 Hold Purple Top Sodium 126 L 126 L Potassium 3.8 4.0 Chloride 97 99 Carbon Dioxide 21 L 20 L Anion Gap 12 11 L BUN 30 H 26 H Creatinine 0.72 0.63 Estim Creat Clear Calc 53.2 60.8 Estimated GFR > 60 > 60 Random Glucose 153 H 119 H Osmolality Calcium 8.9 8.9 Urine Osmolality Ur Random Sodium C. difficile Tox B Gene NEGATIVE 08/27/23 08/27/23 08/27/23 05:32 05:32 05:32 Hold Purple Top SEE NOTE Sodium 131 L Cancelled Potassium 3.7 Cancelled Chloride 104 Carbon Dioxide Anion Gap BUN Creatinine Estim Creat Clear Calc Estimated GFR Random Glucose Osmolality Calcium Urine Osmolality Ur Random Sodium C. difficile Tox B Gene 08/27/23 08/27/23 08/27/23 05:32 05:32 05:32 Hold Purple Top Sodium Potassium Chloride Cancelled Carbon Dioxide 23 Cancelled Anion Gap 8 L Cancelled BUN 18 H Creatinine Estim Creat Clear Calc Estimated GFR Random Glucose Osmolality Calcium Urine Osmolality Ur Random Sodium C. difficile Tox B Gene 08/27/23 08/27/23 08/27/23 05:32 05:32 05:32 Hold Purple Top Sodium Potassium Chloride Carbon Dioxide Anion Gap BUN Cancelled Creatinine 0.63 Cancelled Estim Creat Clear Calc 60.8 Cancelled Estimated GFR > 60 Random Glucose Osmolality Calcium Urine Osmolality Ur Random Sodium C. difficile Tox B Gene 08/27/23 08/27/23 08/27/23 05:32 05:32 05:32 Hold Purple Top Sodium Potassium Chloride Carbon Dioxide Anion Gap BUN Creatinine Estim Creat Clear Calc Estimated GFR Cancelled Random Glucose 105 Cancelled Osmolality Calcium 9.2 Cancelled Urine Osmolality Ur Random Sodium C. difficile Tox B Gene Procedures Date of Service Date of Service: 08/27/23 Assessment & Plan Assessment and plan (1) Acute hyponatremia: Status: Acute Plan Hyponatremia likely multifactorial Likely has some excess ADH as well Was given some NS but D/Ronak now on NaCl tablets Rate of Na correction appropriate No indication for hypertonic saline/tolvaptan restrict PO free water C/W rest of current management Shall closely follow up Time Spent With Patient Time: Total time managing care of this patient today ____ minutes. Progress Note: Quality Stroke Does the patient have a stroke diagnosis?: No
[2023-08-27] MEDS: Sodium Chloride Tab 1 GM TABLET 2 GM PO ×2 (10:44→19:54)
[2023-08-27] MEDS: Metoprolol Succinate ER 50 MG TAB.ER.24H PO (10:44)
--- NOTE | 2023-08-27 13:47 | MHC.CM.PN ---
PT is recommending home with services vs STR(Leaning toward home with services); CM will follow.
--- NOTE | 2023-08-27 14:14 | HO.PM.IMPN ---
Subjective Subjective Date of Service: 08/27/23 Interval History: Seen and evaluated this morning Na improved to 131 this morning more alert and interactive no other events Review of Systems Review of Systems: Yes all other systems are reviewed and are negative Physical Exam Vital Signs: Vital Signs: Last Vital Signs Temp 97.7 F 08/27/23 11:45 Pulse 118 H 08/27/23 12:30 Resp 20 08/27/23 11:45 BP 129/68 08/27/23 11:45 Pulse Ox 95 08/27/23 12:30 O2 Del Method Room Air 08/27/23 11:45 BMI result Body Mass Index 25.1 Const: Other: Constitutional : Awake, interactive, not in distress Neck : Normal inspection, Supple Cardiovascular : RRR, no JVP, no lower extremity edema Respiratory : good bilateral air entry, no crackles, wheezes or rhonchi Gastrointestinal: soft, lax, Normal bowel sounds, Non tender Skin : Warm, Dry Neurological : Alert & oriented to self and place, No focal deficit Objective Data Active Medications Acetaminophen (Acetaminophen 325 Mg Tablet) 650 mg PO Q6H PRN PRN Reason: Pain, Mild (Pain Scale 1-3) Al Hydroxide/Mg Hydroxide (Magnesium Hydrox/Alum Hydrox 30 Ml Oral.Susp) 30 ml PO Q6H PRN PRN Reason: heartburn Atorvastatin Calcium (Atorvastatin Calcium 10 Mg Tablet) 10 mg PO BEDTIME [facility] Last Admin: 08/26/23 20:22 Dose: 10 mg Documented By: ANABELA Heparin Sodium (Porcine) (Heparin Sodium,Porcine 5,000 Unit/Ml Vial) 5,000 unit SUBCUT Q12H [facility] Last Admin: 08/27/23 10:36 Dose: Not Given Documented By: SAPNA Non-Admin Reason: Pt has significant bruising to L arm Lorazepam (Lorazepam 0.5 Mg Tablet) 0.5 mg PO BID PRN PRN Reason: Anxiety Last Admin: 08/26/23 10:13 Dose: 0.5 mg Documented By: CHONG Metoprolol Succinate (Metoprolol Succinate Er 50 Mg Tab.Er.24h) 50 mg PO DAILY [facility]; Protocol Last Admin: 08/27/23 10:44 Dose: 50 mg Documented By: SAPNA Ondansetron HCl (Ondansetron Hcl 4 Mg/2 Ml Vial) 4 mg IVPUSH Q6H PRN PRN Reason: Nausea and Vomiting Oxycodone HCl (Oxycodone Hcl Immed Release 5 Mg Tablet) 5 mg PO BID PRN PRN Reason: Pain, Severe (Pain Scale 7-10) Quetiapine Fumarate (Quetiapine Fumarate 25 Mg Tablet) 12.5 mg PO BEDTIME [facility] Last Admin: 08/26/23 20:21 Dose: 12.5 mg Documented By: DITOLC Sodium Chloride (0.9 % Sodium Chloride Flush 3 Ml Syringe) 3 ml IVFLUSH QSHIFT [facility] Last Admin: 08/27/23 08:21 Dose: 3 ml Documented By: CROSBS Sodium Chloride (Sodium Chloride Tab 1 Gm Tablet) 2 gm PO BID [facility] Last Admin: 08/27/23 10:44 Dose: 2 gm Documented By: FOSTEKR Labs 08/26/23 05:03 08/27/23 13:24 Labs: Laboratory Results - last 24 hr 08/26/23 08/26/23 08/26/23 14:52 16:49 18:24 Hold Purple Top Anion Gap 12 11 L Estim Creat Clear Calc 53.2 60.8 Estimated GFR > 60 > 60 Random Glucose 153 H 119 H Calcium 8.9 8.9 C. difficile Tox B Gene NEGATIVE 08/27/23 08/27/23 08/27/23 05:32 05:32 05:32 Hold Purple Top SEE NOTE Anion Gap 8 L Cancelled Estim Creat Clear Calc 60.8 Cancelled Estimated GFR > 60 Random Glucose Calcium C. difficile Tox B Gene 08/27/23 08/27/23 08/27/23 05:32 05:32 05:32 Hold Purple Top Anion Gap Estim Creat Clear Calc Estimated GFR Cancelled Random Glucose 105 Cancelled Calcium 9.2 Cancelled C. difficile Tox B Gene Assessment and Plan (1) Diarrhea: Status: Acute (2) Acute hyponatremia: Status: Acute (3) Acute metabolic encephalopathy: Status: Acute Plan Agatha Garza is 88 years old woman admitted with: # Acute Hyponatremia w associated with metabolic acidosis and Metabolic encephalopathy Mentation improved IVF Dcd on PO salt tablets improved to 131 Nephrology following. # Diarrhea w recent use of antibiotics improved Unclear if she has hx of gluten or lactose intolerance. negative C diff Hold MiraLax. Lactose and gluten free diet. # Hyperlipidemia. Continue statin. # Essential hypertension. Continue metoprolol. # Anxiety. Continue lorazepam as needed. # History of hip fracture. Oxycodone as needed for pain. DVT prophylaxis: Heparin subcut Code status: DNR/DNI (MOLST form). Also do not use non-invasive ventilator, no artificial nutrition. Dialysis undecided. Use artificial hydration. Patient will need hospitalization overnight for acute hyponatremia treatment with close monitoring of sodium level, and evaluation by subspecialty. Quality Stroke Does the patient have a stroke diagnosis?: No VTE Prior VTE?: No VTE Risk Level:: Medical - moderate - high VTE Device Contraindication: Treatment Not Indicated VTE Drug Contraindication: N/A - Med Ordered
[2023-08-27 14:16] LABS: Anion Gap 14 (12-20); Blood Urea Nitrogen 17 mg/dL (9-16); Carbon Dioxide 20 mmol/L (22-29); Chloride 102 mmol/L (96-108); Creatinine Clr Calc Pharmacy 42.7; Estimated Glomerular Filt Rate > 60; Glucose Random 129 mg/dL (60-115); Potassium 4.5 mmol/L (3.3-5.1); Sodium 131 mmol/L (135-145)
[2023-08-27] MEDS: Heparin Sodium,Porcine 5,000 UNIT/ML VIAL 5000 UNIT SUBCUT (19:53)
[2023-08-27] MEDS: QUEtiapine Fumarate 25 MG TABLET 12.5 MG PO (19:54)
[2023-08-27] MEDS: Atorvastatin Calcium 10 MG TABLET PO (19:54)
[2023-08-27] MEDS: LORazepam 0.5 MG TABLET PO (21:34)
[2023-08-28] MEDS: 0.9 % Sodium Chloride Flush 3 ML SYRINGE IVFLUSH ×2 (01:40→08:12)
[2023-08-28 03:05] VITALS: BP 143/65; PULSE 88; RESP 18; TEMP 36.1; O2SAT 97
[2023-08-28 06:22] LABS: Anion Gap 10 (12-20); Blood Urea Nitrogen 17 mg/dL (9-16); Calcium 8.8 mg/dL (8.4-10.2); Carbon Dioxide 22 mmol/L (22-29); Chloride 106 mmol/L (96-108); Creatinine Clr Calc Pharmacy 55.5; Estimated Glomerular Filt Rate > 60; Glucose Random 91 mg/dL (60-115); Potassium 4.2 mmol/L (3.3-5.1); Sodium 134 mmol/L (135-145)
[2023-08-28 07:29] VITALS: BP 148/73; PULSE 64; RESP 18; TEMP 36.6; O2SAT 97
[2023-08-28] MEDS: Sodium Chloride Tab 1 GM TABLET 2 GM PO (08:11)
[2023-08-28] MEDS: Heparin Sodium,Porcine 5,000 UNIT/ML VIAL 5000 UNIT SUBCUT (08:11)
[2023-08-28] MEDS: Metoprolol Succinate ER 50 MG TAB.ER.24H PO (08:12)
--- NOTE | 2023-08-28 10:50 | MHC.CM.PN ---
Per MD, Patient has been medically cleared for dc to home([facility] in [place]) with [facility]. A referral was made to [facility], who has been made aware of today's dc. Last IMM addressed on 08/26/2023. CM left a detailed message for Patient's Daughter/HCP/Amarilys (who is in [place])@ [phone], informing her of the dc plan.CM set up a 1 PM [facility] to transport Patient but Patient is contacting a Daughter in [place] to transport her.
[2023-08-28 11:07] VITALS: BP 124/66; PULSE 67; RESP 20; TEMP 36.1; O2SAT 98
--- NOTE | 2023-08-28 11:27 | PM.DS ---
DS: Providers Provider Date of Service: 08/28/23 Date of admission: 08/26/23 03:19 Primary care physician: Yvrose Lui MD Consults: 08/26/23 09:03 Consult to Nephrology Routine Consulting Provider: [facility] Reason for consultation: Hyponatremia for kind eval. Has provider been notified: Yes DS: Diagnosis Discharge Diagnosis (1) Diarrhea: Status: Acute (2) Acute hyponatremia: Status: Acute (3) Acute metabolic encephalopathy: Status: Acute DS: Summary Hospital Course Hospital Course: Admission note HPI Agatha Garza is 88 years old woman with past medical history significant for essential hypertension, diarrhea and hyperlipidemia was brought to the emergency department for nausea evaluation. Patient stated that she has been feeling nauseous since yesterday. Denies associated vomiting or abdominal pain. She did reported episodes of diarrhea. She denied any visual problems, headache, fever or chills. Seizure has not been reported. She denied any acute cardiopulmonary symptoms. She stated that she was recently taken antibiotics for presumed UTI and mentioned that sometimes she has urinary symptoms that she attributes to lichen. It seems like this antibiotic is Cefpodoxime. According to nursing the paperwork patient takes Seroquel at nighttime. When I asked the patient specifically about this medication she said that she take this medication twice daily for anxiety; however it has been prescribed to take at bedtime (12.5 mg). Patient stated that she is very thirsty. She has not taking diuretics. She uses MiraLax daily. It is unclear to me if the patient has been drinking water excessively. In the ED, she was found to have hypertension, however her most recent blood pressure is 126/90. Blood workup is remarkable for hyponatremia of 118 (at 5:35 PM). Serum and urine osmolality are low (249 and 365, respectively). Random urinary Na + is 87. Bicarb is 19. Urinalysis showed no abuse findings of UTI. There are traces of ketones. Viral testing for COVID-19, influenza and RSV is negative. TSH is normal. Abdominal pelvis CT scan showed mild diverticulosis without findings of acute diverticulitis and no SBO. According to ED notes folding machine tender on-call was contacted and recommended to start NS at 70 mL/hr. ED tx: Zofran 4 mg IV, Reglan 10 mg IV and lidocaine patch to person. NS 70 ml/hr. Hospital course # Acute Hyponatremia w associated with metabolic acidosis and Metabolic encephalopathy that was evaluated by folding machine tender and treatedwith IV fluids then salt tablets with good response over the course of hospital stay. partially believed to be related on diarrhea and drinking much water. Sodium improved back to baseline of 134. To repeat labs as outpatient. # Diarrhea w recent use of antibiotics resolved as antibiotics were held along with laxatives. Watch your water intake, try not to drink too much To repeat blood test next week Stop antibiotics Increase physical activity as tolerated Time Attestation Discharge Coordination Time (in mins): 38 Quality: Safe Use of Opioids Does Pt have an Active Cancer Diagnosis on the Problem List?: No Quality: Stroke Does the patient have a stroke diagnosis?: No Physical Exam Vital Signs: Vital Signs: Last Vital Signs Temp 97.0 F 08/28/23 11:07 Pulse 67 08/28/23 11:07 Resp 20 08/28/23 11:07 BP 124/66 08/28/23 11:07 Pulse Ox 98 08/28/23 11:07 O2 Del Method Room Air 08/28/23 11:07 BMI result Body Mass Index 25.1 Const: Other: Constitutional : Awake, interactive, not in distress Neck : Normal inspection, Supple Cardiovascular : RRR, no JVP, no lower extremity edema Respiratory : good bilateral air entry, no crackles, wheezes or rhonchi Gastrointestinal: soft, lax, Normal bowel sounds, Non tender Skin : Warm, Dry Neurological : Alert & oriented to self and place, No focal deficit DS: Data Data Completed and Pending Completed studies during hospitalization [Text1]: Procedures Replacement of Left Hip Joint, Femoral Surface with Synthetic Substitute, Uncemented, Open Approach (10/31/22) Labs on day of discharge: Laboratory Results - last 24 hr 08/27/23 08/28/23 13:24 05:35 Hold Purple Top SEE NOTE Sodium 131 L 134 L Potassium 4.5 D 4.2 Chloride 102 106 Carbon Dioxide 20 L 22 Anion Gap 14 10 L BUN 17 H 17 H Creatinine 0.82 0.63 Estim Creat Clear Calc 42.7 55.5 Estimated GFR > 60 > 60 Random Glucose 129 H 91 Calcium 9.0 8.8 Imaging Chest x-ray: Radiologist's impression: ITS Impressions Abdomen/Pelvis CT 08/25/23 21:11 IMPRESSION: 1. Mild diverticulosis without evidence of acute diverticulitis. No small or large bowel obstruction. Unremarkable appendix. 2. No new intra-abdominal mass, lymphadenopathy, or ascites. 3. Additional chronic findings are unchanged. Fleischner guidelines were followed. Venous Duplex 08/27/23 18:36 IMPRESSION: No DVT demonstrated in the left upper extremity Discharge Plan Discharge Anticipated Discharge Date/Time: 08/28/23 11:23 Patient Disposition: Home Health Service Discharge Diagnosis: Hyponatremia Referrals: Liya ALEXANDRA [Outside] - 1 Week Yvrose Lui MD [Primary Care Provider] - 1 Week Discharge Medications: Continued metoprolol succinate 50 mg tablet extended release 24 hr 50 mg PO DAILY cholecalciferol (vitamin D3) [Vitamin D3] 50 mcg (2,000 unit) Capsule 50 mcg PO DAILY lorazepam 0.5 mg tablet 0.5 mg PO BID quetiapine 25 mg tablet 12.5 mg PO BEDTIME clobetasol 0.05 % ointment 1 appl topical BID PRN (Reason: Rash) cyanocobalamin (vitamin B-12) 250 mcg Tablet 500 mcg PO DAILY lactase [Lactaid Fast Act] 9,000 unit Tablet 9,000 unit PO TIDAC PRN (Reason: Lactose Intolerance) Rx Instructions: administer with meals and/or snacks Discontinued cefpodoxime 100 mg tablet 100 mg PO BID Discharge Orders: Discharge Order (Routine); Ordered 08/28/23 Ordered By: Deonte Dyer Diet: Advance to usual diet Activity on Discharge: As tolerated Stand Alone Forms: Patient Portal Discharge page Other Ambulatory Orders: Basic Metabolic Panel (Routine) Timeframe: 5 Days Facility: [facility] - Location: Laboratory Ordered By: Deonte Dyer Care Plan Goals: Read below Health Concerns: Read below Plan of Treatment: Read below Assessment: Watch your water intake, try not to drink too much To repeat blood test next week Stop antibiotics Increase physical activity as tolerated
--- NOTE | 2023-08-28 11:32 | P.F2F_ITS ---
Service Date Service Date: 08/28/23 Encounter Date of encounter: 08/28/23 Reasons for Services Signs and symptoms assessed: physical deconditioning Reason for physical therapy: home safety and mobility and therapeutic exercises Homebound: Leaving the home is medically contraindicated at this time without the asist of a device and/or another person due th the listed conditions above and below. Reason homebound: unsteady gait / fall risk Certification: Based on the above findings, I certify that this patient is confined to the home and needs intermittent prison care, physical therapy and/or speech therapy, or continues to need occupational therapy. The patient is under my care, and I have initiated the establishment of the plan of care. The patient will be followed by a physician who will periodically review the plan of care. Time Spent With Patient Time: Total time managing care of this patient today ____ minutes.
--- NOTE | 2023-08-28 12:08 | MHC.CM.PN ---
Ambulance has been cancelled; Daughter/Arielle from [place] @ [phone] will transport Patient back to [facility].
--- NOTE | 2023-08-28 12:09 | PC.NURSE ---
manzano cath removed at 1000. pt due to void by 1600
== END 2023-08-28 14:06 | disposition home health service (06) | DRG 640 ==
LOC: HO.ED 08-26 02:37 → HO.EDOVER 08-26 03:26 → HO.IMC 08-27 07:16
PROVIDERS: Nurse Practitioner Family; Admitting Provider Internal Medicine; Emergency Provider Emergency Medicine; PCP Internal Medicine; Visit Provider Student in an Organized Health Care Education/Training Program
DX: E87.1 Hypo-osmolality and hyponatremia (principal); G93.41 Metabolic encephalopathy; I10 Essential (primary) hypertension; Z66 Do not resuscitate; E78.5 Hyperlipidemia, unspecified; F41.9 Anxiety disorder, unspecified; R19.7 Diarrhea, unspecified; E87.21 Acute metabolic acidosis; Z20.822 Contact with and (suspected) exposure to COVID-19; Z87.891 Personal history of nicotine dependence; Z79.899 Other long term (current) drug therapy
CPT/HCPCS: 0241U; 36415; 74177; 80048; 80053; 81001; 83690; 83735; 83930; 83935; 84300; 84443; 84484; 85025; 85610; 87493; 93005; 93971; 97162; 99285; C1758; J1644; J2405; J2765; Q9967

== ENCOUNTER → 2023-08-25 17:24 | Outpatient (BNV) | payer MEDICARE, SELFPAY | PROVIDERS: Admitting Provider Internal Medicine; Emergency Provider Emergency Medicine; PCP Internal Medicine; Visit Provider Internal Medicine Cardiovascular Disease | DX: R94.31 Abnormal electrocardiogram [ECG] [EKG] (principal) | CPT/HCPCS: 93010 ==

== ENCOUNTER → 2023-08-26 03:19 | Outpatient (BNV) | payer MEDICARE, SELFPAY | PROVIDERS: Admitting Provider Internal Medicine; Emergency Provider Emergency Medicine; Visit Provider Internal Medicine | DX: R19.7 Diarrhea, unspecified (principal); E87.1 Hypo-osmolality and hyponatremia; G93.41 Metabolic encephalopathy | CPT/HCPCS: 99223; 99232; 99239; 99499; G0180 ==

== ENCOUNTER → 2023-08-26 03:19 | Outpatient (BNV) | payer MEDICARE, SELFPAY | PROVIDERS: Admitting Provider Internal Medicine; Emergency Provider Emergency Medicine; Visit Provider Internal Medicine Nephrology | DX: E87.1 Hypo-osmolality and hyponatremia (principal) | CPT/HCPCS: 99223; 99232 ==

== ENCOUNTER 2023-11-29 08:16 | Emergency (ER) | payer MEDICARE, SELFPAY ==
--- NOTE | 2023-11-29 08:24 | ED.GENADULT ---
HPI - General Adult General Chief complaint: Extremity Injury, Lower Stated complaint: SCABBED WOUND WORRIED ABOUT INFECTION Time Seen by Provider: 11/29/23 08:24 Source: patient, EMS and RN notes reviewed Mode of arrival: EMS Limitations: no limitations History of Present Illness ED Provider: Cedric Bloom NP HPI narrative: Patient is an 88-year-old female with history of HTN, HLD, depression presenting to the emergency department from the [facility] for evaluation of a right lower leg wound. Patient reports that she accidentally scratched herself while pulling on her compression stockings 2 weeks ago. She states that she has been told by staff that the wound appears to be infected. 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 She denies any discharge or drainage from the area. Denies fevers. Denies history of DM. MD complaint: leg wound Location: right and lower extremity Associated symptoms: denies other symptoms Treatments prior to arrival: none Related Data Home Medications ?Medication ?Instructions ?Recorded ?Confirmed cholecalciferol (vitamin D3) 50 50 mcg PO DAILY 10/31/22 08/26/23 mcg (2,000 unit) capsule (Vitamin D3) metoprolol succinate 50 mg 50 mg PO DAILY 10/31/22 08/26/23 tablet,extended release 24 hr clobetasol 0.05 % topical ointment 1 appl topical BID PRN Rash 08/26/23 08/26/23 cyanocobalamin (vitamin B-12) 250 500 mcg PO DAILY 08/26/23 08/26/23 mcg tablet lactase 9,000 unit tablet (Lactaid 9,000 unit PO TIDAC PRN Lactose 08/26/23 08/26/23 Fast Act) Intolerance lorazepam 0.5 mg tablet 0.5 mg PO BID 08/26/23 08/26/23 quetiapine 25 mg tablet 12.5 mg PO BEDTIME 08/26/23 08/26/23 Previous Rx's ?Medication ?Instructions ?Recorded cephalexin 500 mg capsule 500 mg PO QID 7 days #28 caps 11/29/23 Allergies Allergy/AdvReac Type Severity Reaction Status Date / Time buspirone [BUSPIRONE] Allergy Intermediate STOMACH Verified 11/29/23 08:26 UPSET citalopram [CITALOPRAM] Allergy Intermediate STOMACH Verified 11/29/23 08:26 UPSET paroxetine [PAROXETINE] Allergy Intermediate STOMACH Verified 11/29/23 08:26 UPSET trazodone [TRAZODONE] Allergy Intermediate STOMACH Verified 11/29/23 08:26 UPSET levofloxacin [From LEVAQUIN] Allergy Unknown DEPRESSION Verified 11/29/23 08:26 lactose Allergy Gastrointestinal Verified 11/29/23 08:26 Upset Review of Systems Review of Systems: As per HPI. Yes all other systems are reviewed and are negative Constitutional: Constitutional: Reports as per HPI [facility] Past Medical History Medical History Depression Hyperlipemia Hypertension Social History Social History Household Members: Other Housing: Assisted Living Facility Do you presently have visiting nurse or other home services: Yes Alcohol intake: never Patient Tobacco Use Status: Former Tobacco user Tobacco use type: Cigarette Advance Directives: No Advance Directives Information Provided: No Advance Directives Date on File: 03/26/20 Do you have a plan to hurt others: No Plan service: No Current occupational status: retired Physical Exam ED Vital Signs: Vital Signs - 24 hr 11/29/23 08:25 Temperature 98.5 F Pulse Rate 56 Respiratory Rate 16 Blood Pressure 157/98 H Pulse Oximetry 97 Oxygen Delivery Method Room Air BMI result Body Mass Index 25.1 Vital signs have been reviewed and appear to be correct. Blood pressure normal. Heart rate normal. Respiratory rate normal. Temperature normal. Oxygen saturation normal. Const General: cooperative, healthy appearing and no acute distress Orientation/consciousness: oriented to person, oriented to place, oriented to time and patient oriented x3 Limitations: no limitations HENMT Head: Yes normocephalic and Yes atraumatic Ears: external ears normal General nose exam: Normal external nose present Face and sinus: Yes face symmetric Mouth: oropharynx normal and moist mucous membranes Throat: Yes uvula midline Eyes Pupils: Equal, round and reactive pupils present Neck Neck: Yes normal visual inspection and Yes supple Resp Effort & Inspection: normal respiratory effort and able to speak in complete sentences Auscultation: clear to auscultation bilaterally Cardio Rate: regular rate Rhythm: regular rhythm Heart sounds: S1 normal heart sound present and S2 normal heart sound present GI Palpation (GI): Soft to palpation and nontender Auscultation: normoactive bowel sounds General: Yes no CVA tenderness Back/Spine/Pelvis Back: no CVA tenderness Skin General skin exam: elasticity normal and turgor normal Neuro General: oriented to person, oriented to place, oriented to time, patient oriented x3, moves all extremities, no focal motor deficits and CN's II-XI intact bilaterally Cranial nerves: Yes Equal, round and reactive pupils present Cognition (Neuro): normal cognition Extrem Other: General: Yes full ROM, Yes no pedal edema and Yes no calf tenderness Right lower extremity: lower leg (1cm diameter scab with surrounding erythema and warmth) Details: erythema Location: of the distal lower leg Location: anteriorly, no edema and warmth Location: of the distal lower leg and foot Details: vascular exam Details: dorsalis pedis pulse present and posterior tibial pulse present Psych Mental Status: mental status grossly normal Affect: normal affect Thought process: Normal thought process present Medical Decision Making Medical Decision Making [facility] Narrative: Patient is an 88-year-old female with history of HTN, HLD, depression presenting to the emergency department from the [facility] for evaluation of a right lower leg wound. On exam patient is awake, A+Ox3, VS WNL, afebrile, normal neurological exam without focal deficits, physical exam findings as above. Given reported symptoms and physical exam findings, initial differential includes abrasion, cellulitis. Do not suspect DVT. Labs notable for no leukocytosis, no elevation of CRP or ESR. Spoke with Vish from the [facility] to confirm pharmacy, she advised to send prescription to [facility] in [place]. Discussed with patient the importance of taking all medication prescribed. Follow up with PCP. Return with new or worsening symptoms. Patient verbalized understanding of and agreement with plan. Differential Diagnosis Differential Diagnoses: The differential diagnosis associated with the presentation includes As per [facility] Lab Data [facility] Lab Attestation statement: I reviewed the patient's lab results. As Per [facility]. 11/29/23 09:24 11/29/23 09:24 Labs: Lab Results 11/29/23 Range/Units 09:24 WBC 7.0 (4.8-10.8) X10*3/uL RBC 4.17 L (4.20-5.50) X10*6/uL Hgb 13.0 (12.0-16.0) g/dl Hct 37.6 (37.0-47.0) % MCV 90.2 (80.0-98.0) fL MCH 31.2 (27.0-33.0) pg MCHC 34.6 (31.0-35.0) g/dl RDW 12.8 (11.0-16.0) % Plt Count 231 (160-400) X10*3/uL MPV 9.2 L (9.4-12.3) fL Immature Gran % (Auto) 0.6 H (0.0-0.4) % Neut % (Auto) 69.9 (45-73) % Lymph % (Auto) 18.3 L (20-40) % Bailey % (Auto) 9.2 (2-11) % Eos % (Auto) 1.0 (0-4) % Baso % (Auto) 1.0 (0-2) % Lymph # (Auto) 1.3 (1.2-4.9) X10*3/uL Bailey # (Auto) 0.6 (0.1-1.2) X10*3/uL Eos # (Auto) 0.1 (0.0-0.4) X10*3/uL Baso # (Auto) 0.1 (0.0-0.2) X10*3/uL Abs Immat Gran (auto) 0.04 H (0.00-0.03) X10*3/uL Absolute Neuts (auto) 4.9 (2.0-8.3) x10*3/uL Absolute Nucleated RBC 0.000 (0.0-0.012) X10*3/uL Nucleated RBC % (auto) 0.0 (0.0-0.2) /100WBC ESR 7 (0-20) MM/HR Sodium 133 L (135-145) mmol/L Potassium 4.6 (3.3-5.1) mmol/L Chloride 103 (96-108) mmol/L Carbon Dioxide 25 (22-29) mmol/L Anion Gap 10 L (12-20) BUN 18 H (9-16) mg/dL Creatinine 0.81 (0.5-1.4) mg/dL Estim Creat Clear Calc 46.7 Estimated GFR > 60 Random Glucose 127 H (60-115) mg/dL Calcium 9.5 D (8.4-10.2) mg/dL Total Bilirubin 0.5 (0.0-1.0) mg/dL AST 15 (5-31) U/L ALT 18 (0-31) U/L Alkaline Phosphatase 76 (39-117) U/L C-Reactive Protein 0.17 (< or = 0.50) mg/dL Total Protein 6.4 L (6.5-8.0) g/dL Albumin 3.8 (3.5-5.0) g/dL External Record Review External record reviewed: Inpatient record, Office record and Outpatient record Prescription Management I considered prescription management with: Antibiotic Discharge Plan Discharge Clinical Impression: Cellulitis of right lower leg Patient Disposition: Home, Self-Care Instructions: Cellulitis (DC) Additional Instructions: You have been evaluated in the emergency department today for skin infection, also known as cellulitis. Please take your prescribed antibiotics as directed for the full course of the medication. You can use Tylenol or ibuprofen per package instructions every 6 hours as needed for pain. Please schedule an appointment for follow-up with your primary care physician as soon as possible. Return to the emergency department if you experience recurrent vomiting, fevers greater than 100.4? F, increasing area of redness, warmth around the area, foul-smelling discharge from the area, increased tenderness around the area, or any other concerning symptoms. Prescriptions: New cephalexin 500 mg capsule 500 mg PO QID 7 Days Qty: 28 0RF No Action metoprolol succinate 50 mg tablet extended release 24 hr 50 mg PO DAILY cholecalciferol (vitamin D3) [Vitamin D3] 50 mcg (2,000 unit) Capsule 50 mcg PO DAILY lorazepam 0.5 mg tablet 0.5 mg PO BID quetiapine 25 mg tablet 12.5 mg PO BEDTIME clobetasol 0.05 % ointment 1 appl topical BID PRN (Reason: Rash) cyanocobalamin (vitamin B-12) 250 mcg Tablet 500 mcg PO DAILY lactase [Lactaid Fast Act] 9,000 unit Tablet 9,000 unit PO TIDAC PRN (Reason: Lactose Intolerance) Rx Instructions: administer with meals and/or snacks Print Language: Iranian
[2023-11-29 08:25] VITALS: BP 157/98; BP 159/85; PULSE 56; PULSE 60; RESP 16; TEMP 36.9; O2SAT 97; BMI 25.1
--- NOTE | 2023-11-29 08:59 | PC.NURSE ---
a&ox4. vss and up to date aside from being slightly bradycardic. pt presents to the ED from the [facility] in [place] d/t concern for infection. pt verbalizes putting on michelle stockings x 2 weeks ago and scraped her RLE w/ her fingernail. no signs of infection noted. pt denies fever/chills. abrasion scabbed over. no signs of discharge. no redness noted. no warmth noted around site. pt waiting to be seen by ED provider. plan of care ongoing.
[2023-11-29 09:29] LABS: MANUAL DIFF FLAG NO
[2023-11-29 09:31] LABS: Basophils Absolute Auto 0.1 X10*3/uL (0.0-0.2); Eosinophils Absolute Auto 0.1 X10*3/uL (0.0-0.4); Hematocrit 37.6 % (37.0-47.0); Imm Gran Abs Auto 0.04 X10*3/uL (0.00-0.03); Imm Gran Pct Auto 0.6 % (0.0-0.4); Lymphocytes Absolute Auto 1.3 X10*3/uL (1.2-4.9); Lymphocytes Percent Auto 18.3 % (20-40); Mean Corpuscular HGB Conc 34.6 g/dl (31.0-35.0); Mean Corpuscular Hemoglobin 31.2 pg (27.0-33.0); Mean Corpuscular Volume 90.2 fL (80.0-98.0); Mean Platelet Volume 9.2 fL (9.4-12.3); Monocytes Absolute Auto 0.6 X10*3/uL (0.1-1.2); Monocytes Percent Auto 9.2 % (2-11); Neutrophils Absolute Auto 4.9 x10*3/uL (2.0-8.3); Neutrophils Percent Auto 69.9 % (45-73); Platelet Count 231 X10*3/uL (160-400); Red Blood Count 4.17 X10*6/uL (4.20-5.50); Red Cell Distribution Width 12.8 % (11.0-16.0)
[2023-11-29 09:45] LABS: C Reactive Protein 0.17 mg/dL (< or = 0.50)
[2023-11-29 09:47] LABS: Alanine Aminotransferase 18 U/L (0-31); Albumin Level 3.8 g/dL (3.5-5.0); Alkaline Phosphatase 76 U/L (39-117); Anion Gap 10 (12-20); Aspartate Amino Transferase 15 U/L (5-31); Bilirubin Total 0.5 mg/dL (0.0-1.0); Blood Urea Nitrogen 18 mg/dL (9-16); Calcium 9.5 mg/dL (8.4-10.2); Carbon Dioxide 25 mmol/L (22-29); Chloride 103 mmol/L (96-108); Creatinine Clr Calc Pharmacy 46.7; Estimated Glomerular Filt Rate > 60; Glucose Random 127 mg/dL (60-115); Potassium 4.6 mmol/L (3.3-5.1); Sodium 133 mmol/L (135-145); Total Protein 6.4 g/dL (6.5-8.0)
[2023-11-29 10:32] LABS: Erythrocyte Sedimentation Rate 7 MM/HR (0-20)
[2023-11-29 11:18] VITALS: BP 129/81; PULSE 58; RESP 16; TEMP 36.6; O2SAT 97
--- NOTE | 2023-11-29 11:19 | PC.NURSE ---
vss and up to date at this time. pt resting comfortably in no apparent distress. pt waiting for transportation via BLS back to the [facility]. estimated ETA is for 12. patient notified/aware. diet order placed in case so pt doesn't miss lunch. plan of care ongoing.
--- NOTE | 2023-11-29 12:25 | PC.NURSE ---
report given to S at this time.
[2023-11-29 13:45] VITALS: BP 129/81; PULSE 58; RESP 16; TEMP 36.6; O2SAT 97
== END 2023-11-29 13:45 | disposition home or self-care (01) ==
PROVIDERS: Registered Nurse Emergency; Emergency Provider Emergency Medicine; PCP Internal Medicine
DX: L03.115 Cellulitis of right lower limb (principal); I10 Essential (primary) hypertension
CPT/HCPCS: 36415; 80053; 85025; 85652; 86140; 99283; 99284